=== PATIENT | female | born 1945 | race Caucasian/White ===

== ENCOUNTER 2016-07-08 11:00 | Inpatient (IN) | payer MEDICARE, OTHER ==
--- NOTE | 2016-07-08 11:18 | ER Document Report ---
ED General - General Stated Complaint: WEAKNESS Time seen by provider: 11:17 Mode of Arrival: Ambulatory Information source: Patient Notes: This is a 71-year-old female with a history of back pain, hypertension, migraines who is brought in by EMS was of an altered mental status. The patient lives by herself and a friend came to the house and found the patient with a decreased mental status. Patient was very lethargic for EMS and moving all extremities. EMS reports that when they helped the patient to the bathroom , she did vomit. The patient was given Zofran in the field. TRAVEL OUTSIDE OF THE [place] IN LAST 30 DAYS: No - HPI Onset: Last week Onset/Duration: Gradual Quality of pain: No pain Severity: None Pain Level: Denies Associated symptoms: denies: Chest pain, Fever, Shortness of breath Exacerbated by: Denies Relieved by: Denies Similar symptoms previously: No Recently seen / treated by doctor: No - Related Data Allergies/Adverse Reactions: sumatriptan [From Imitrex] Allergy (Severe, Verified 12/06/14 11:48) ketorolac tromethamine [From Toradol] Allergy (Intermediate, Verified 12/06/14 11:48) itching, hives Sulfa (Sulfonamide Antibiotics) Allergy (Intermediate, Verified 12/06/14 11:48) hives, anaphylaxis prochlorperazine maleate [From Compazine] Allergy (Verified 12/06/14 11:48) Past Medical History - General Information source: Patient - Social History Smoking Status: Never Smoker Cigarette use (# per day): No Chew tobacco use (# tins/day): No Frequency of alcohol use: None Drug Abuse: None Lives with: Alone Family History: Reviewed & Not Pertinent, CVA Patient has suicidal ideation: No Patient has homicidal ideation: No - Past Medical History Cardiac Medical History: Reports: Hx Hypercholesterolemia, Hx Hypertension Denies: Hx Heart Attack Pulmonary Medical History: Reports: Hx Bronchitis, Hx Pneumonia Denies: Hx Asthma Neurological Medical History: Reports: Hx Migraine. Denies: Hx Cerebrovascular Accident, Hx Seizures Endocrine Medical History: Reports: Hx Hypothyroidism GI Medical History: Reports: Hx Gastroesophageal Reflux Disease, Hx Hiatal Hernia - REPAIRED . Denies: Hx Hepatitis, Hx Ulcer Psychiatric Medical History: Reports: Hx Anxiety, Hx Depression - Weekly visits to therapist Infectious Medical History: Denies: Hx Hepatitis Past Surgical History: Reports: Hx Abdominal Surgery - HERNIA REPAIR, Hx Adenoidectomy, Hx Orthopedic Surgery - left wrist, Hx Tonsillectomy, Hx Tubal Ligation. Denies: Hx Mastectomy, Hx Open Heart Surgery, Hx Pacemaker - Immunizations Hx Diphtheria, Pertussis, Tetanus Vaccination: Yes Hx Pneumococcal Vaccination: 06/26/00 Review of Systems - Review of Systems Constitutional: denies: Chills, Fever EENT: No symptoms reported Cardiovascular: No symptoms reported Respiratory: No symptoms reported Gastrointestinal: No symptoms reported Genitourinary: No symptoms reported Female Genitourinary: No symptoms reported Musculoskeletal: No symptoms reported Skin: No symptoms reported Hematologic/Lymphatic: No symptoms reported Neurological/Psychological: See HPI Physical Exam - Vital signs Vitals: Temp Pulse Resp BP Pulse Ox 97.5 F 70 16 148/75 H 97 07/08/16 11:07 07/08/16 11:07 07/08/16 11:07 07/08/16 11:07 07/08/16 11:07 Notes: Physical exam: GENERAL: 71-year-old female lying in stretcher with her eyes closed. She is lethargic. She does move all extremities intermittently. She does seem to understand when I speak to her (she nods in understanding when I tell her oriented to some blood work and give her some IV fluids). She does not appear to be in any pain. There is some vomit on her shirt. HEAD: Atraumatic, normocephalic. EYES: Pupils equal round and reactive to light, extraocular movements intact, sclera anicteric, conjunctiva are normal. ENT: TMs normal, nares patent, oropharynx clear without exudates. Moist mucous membranes. NECK: Normal range of motion, supple without lymphadenopathy LUNGS: Breath sounds clear to auscultation bilaterally and equal. No wheezes rales or rhonchi. HEART: Regular rate and rhythm without murmurs, rubs or gallops. ABDOMEN: Soft, nontender, normoactive bowel sounds. No guarding, no rebound. No masses appreciated. EXTREMITIES: Normal range of motion, no pitting or edema. No clubbing or cyanosis. NEUROLOGICAL: Cranial nerves II through XII grossly intact. Normal speech, normal gait. PSYCH: Normal mood, normal affect. SKIN: Warm, Dry, normal turgor, no rashes or lesions noted. Note: Initially the patient was still lethargic to perform an NIH scale. After several hours, she still is somewhat lethargic, has generalized weakness, no focal weakness and her best language has mild fluency loss. Estimated NIH at this time is 1 Course - Re-evaluation Re-evalutation: 07/08/16 17:21 Patient observed several hours. She has woken up. On reevaluation, she is moving all the extremities and she is oriented 3. She is having difficulty getting words out. The patient's friend is at the bedside and she should she reports that she noticed the patient was having difficulty with her words yesterday as well. Thus given the patient's dysphasia, it appears she may have suffered a stroke. The time of onset looks to be before this morning. The patient is not a candidate for any type of thrombolytics given that the stroke is not within 4.5 hours. - Vital Signs Vital signs: Temp Pulse Resp BP Pulse Ox 97.5 F 89 16 138/81 H 98 07/08/16 11:07 07/08/16 15:00 07/08/16 15:00 07/08/16 15:00 07/08/16 15:00 - Laboratory Result Diagrams: 07/08/16 11:25 07/08/16 11:25 Laboratory results interpreted by me: 07/08/16 07/08/16 07/08/16 11:25 11:25 12:25 MCHC 30.5 L RDW 15.7 H Plt Count 130 L Sodium 150.8 H Chloride 114 H Glucose 120 H Total Protein 6.2 L Albumin 3.4 L Urine Ketones TRACE H - Diagnostic Test Radiology reviewed: Image reviewed, Reports reviewed - CT shows small vessel disease Critical Care Note - Critical Care Note Total time excluding time spent on procedures (mins): 60 Discharge - Discharge Clinical Impression: CVA Condition: Stable Disposition: ADMITTED INPATIENT Admitting Provider: Hospitalist Unit Admitted: Telemetry
[2016-07-08 12:04] LABS: ABSOLUTE EOSINOPHILS # (AUTO) 0.1 10^3/uL (0.0-0.6); ABSOLUTE LYMPHOCYTES (AUTO) 1.5 10^3/uL (0.5-4.7); ABSOLUTE MONOCYTES (AUTO) 0.6 10^3/uL (0.1-1.4); ABSOLUTE NEUT (AUTO) 4.6 10^3/uL (1.7-8.2); BASOPHILS % (AUTO) 0.5 % (0-2); EOSINOPHILS % (AUTO) 2.1 % (0-6); HEMATOCRIT 42.4 % (36.0-47.0); HEMOGLOBIN 12.9 g/dL (12.0-15.5); HGB HCT DIFFERENCE -3.7; LYMPHOCYTES % (AUTO) 21.4 % (13-45); MEAN CORPUSCULAR HEMOGLOBIN 27.5 pg (27.0-33.4); MEAN CORPUSCULAR HGB CONC 30.5 g/dL (32.0-36.0); MEAN CORPUSCULAR VOLUME 90 fl (80-97); RED BLOOD COUNT 4.69 10^6/uL (3.72-5.28); RED CELL DISTRIBUTION WIDTH 15.7 % (11.5-14.0); WHITE BLOOD COUNT 6.8 10^3/uL (4.0-10.5)
[2016-07-08 12:34] LABS: ALANINE AMINOTRANSFERASE 20 U/L (9-52); ALBUMIN 3.4 g/dL (3.5-5.0); ALKALINE PHOSPHATASE 115 U/L (38-126); ANION GAP 15 (5-19); ASPARTATE AMINO TRANSFERASE 24 U/L (14-36); BILIRUBIN,TOTAL 0.6 mg/dL (0.2-1.3); BLOOD UREA NITROGEN 10 mg/dL (7-20); CALCIUM 8.8 mg/dL (8.4-10.2); CARBON DIOXIDE 22 mmol/L (22-30); CHLORIDE 114 mmol/L (98-107); CREATINE KINASE 44 U/L (30-135); CREATININE RESULT 0.75 mg/dL (0.52-1.25); GLUCOSE 120 mg/dL (75-110); POTASSIUM 4.1 mmol/L (3.6-5.0); SODIUM 150.8 mmol/L (137-145); TOTAL PROTEIN 6.2 g/dL (6.3-8.2)
[2016-07-08 12:44] LABS: TROPONIN I < 0.012 ng/mL
--- NOTE | 2016-07-08 15:05 | EKG REPORT ---
SEVERITY:- NORMAL ECG - SINUS RHYTHM : Confirmed by: Eve Cadet 08-Jul-2016 15:05:05
[2016-07-08 16:30] LABS: APPEARANCE,URINE CLEAR; BILIRUBIN,URINE NEGATIVE (NEGATIVE); GLUCOSE, URINE NEGATIVE (NEGATIVE); KETONES,URINE TRACE mg/dL (NEGATIVE); LEUKOCYTE ESTERASE,URINE NEGATIVE (NEGATIVE); NITRITE,URINE NEGATIVE (NEGATIVE); PROTEIN,URINE NEGATIVE (NEGATIVE); URINE SPECIFIC GRAVITY 1.006; UROBILINOGEN,URINE NEGATIVE mg/dL (<2.0)
[2016-07-08] MEDS ORDERED: ASPIRIN 81 MG TABLET, CHEWABLE PO ONE (17:23)
[2016-07-08] MEDS ORDERED: HYDRALAZINE HCL INJ/PF 20 MG/1 ML SDV IV PRN (18:07)
[2016-07-08] MEDS ORDERED: ACETAMINOPHEN 325 MG TABLET PO PRN (18:10)
[2016-07-08] MEDS ORDERED: LABETALOL HCL INJ 20 MG/4 ML DISP.SYRIN IV PRN (18:10)
--- NOTE | 2016-07-08 18:45 | PDOC H&P ---
History of Present Illness Admission Date/PCP: 07/08/16 17:46 PCP: [facility] Patient complains of: Speech difficulty History of Present Illness: ANNAMARIA BRASHER is a 71 year old female with past medical history of hypertension, migraine headaches, hypothyroidism that presents with 1-2 day history of difficulty speaking. Patient states that she wants to say something but a different word comes out. Her friend first noticed this when she called patient last night. The symptoms may have preceded that phone call by approximate 24 hours however. Patient thinks she may have had a history of stroke in the past. Patient incidentally has not been taking any of her medications for proximally 6 months to include antihypertensive medications and thyroid medicine. Medications listed below have not been verified at the time of this documentation. Past Medical History Cardiac Medical History: Reports: Hyperlipidema, Hypertension Denies: Myocardial Infarction Pulmonary Medical History: Reports: Bronchitis, Pneumonia Denies: Asthma Neurological Medical History: Reports: Migraine Denies: Seizures Endocrine Medical History: Reports: Hypothyroidism GI Medical History: Reports: Gastroesophageal Reflux Disease, Hiatal Hernia - REPAIRED Denies: Hepatitis Psychiatric Medical History: Reports: Depression - Weekly visits to therapist Hematology: Denies: Anemia, Sickle Cell Disease Past Surgical History Past Surgical History: Reports: Adenoidectomy, Orthopedic Surgery - left wrist, Tonsillectomy, Tubal Ligation Denies: Amputation, Mastectomy, Pacemaker Social History Information Source: Patient Lives with: Alone Smoking Status: Never Smoker Frequency of Alcohol Use: None Hx Recreational Drug Use: No Hx Prescription Drug Abuse: No - Advance Directive Resuscitation Status: Full Code Family History Family History: CVA - Father and mother Parental Family History Reviewed: Yes Children Family History Reviewed: Yes Sibling(s) Family History Reviewed.: Yes Medication/Allergy Allergies/Adverse Reactions: sumatriptan [From Imitrex] Allergy (Severe, Verified 12/06/14 11:48) ketorolac tromethamine [From Toradol] Allergy (Intermediate, Verified 12/06/14 11:48) itching, hives Sulfa (Sulfonamide Antibiotics) Allergy (Intermediate, Verified 12/06/14 11:48) hives, anaphylaxis prochlorperazine maleate [From Compazine] Allergy (Verified 12/06/14 11:48) Review of Systems Constitutional: ABSENT: chills, fever(s), headache(s), weight gain, weight loss Eyes: ABSENT: visual disturbances Ears: ABSENT: hearing changes Cardiovascular: ABSENT: chest pain, dyspnea on exertion, edema, orthropnea, palpitations Respiratory: ABSENT: cough, hemoptysis Gastrointestinal: ABSENT: abdominal pain, constipation, diarrhea, hematemesis, hematochezia, nausea, vomiting Genitourinary: ABSENT: dysuria, hematuria Musculoskeletal: ABSENT: joint swelling Integumentary: ABSENT: rash, wounds Neurological: PRESENT: abnormal speech, memory loss - Patient does not recall yesterday. ABSENT: abnormal gait, confusion, dizziness, focal weakness, syncope Psychiatric: ABSENT: anxiety, depression, homidical ideation, suicidal ideation Endocrine: ABSENT: cold intolerance, heat intolerance, polydipsia, polyuria Hematologic/Lymphatic: ABSENT: easy bleeding, easy bruising Physical Exam Vital Signs: Temp Pulse Resp BP Pulse Ox 97.5 F 89 16 138/81 H 98 07/08/16 11:07 07/08/16 15:00 07/08/16 15:00 07/08/16 15:00 07/08/16 15:00 PHYSICAL EXAM: GENERAL: Appears well, no acute distress HEENT: Normocephalic, no scleral icterus, conjunctiva clear, EOEM intact, PERRLA , moist mucous membranes NECK: trachea midline, no thyromegally RESPIRATORY: Clear to auscultation, no wheezes/rhonchi CARDIAC: Regular rate and rhythm, no murmur/jaime/rub ABDOMEN: Soft, no distension, no tenderness, no guarding, normal bowel sounds, negative Driver sign RECTAL: deferred : deferred EXTREMITIES: No edema, cyanosis, clubbing MUSCULOSKELETAL: No joint swelling or deformity VASCULAR: normal peripheral pulses NEUROLOGIC: Alert, oriented to person/place/time, expressive aphasia, cranial nerves grossly intact, 5/5 strength in all extremities, tactile sensation intact in all extremities SKIN: No rash, no wounds, no worrisome skin lesions PSYCHIATRIC: Normal mood, normal affect Results Laboratory Results: Labs- All tests 24 hr 07/08/16 07/08/16 07/08/16 11:25 11:25 11:25 WBC 6.8 RBC 4.69 Hgb 12.9 Hct 42.4 MCV 90 MCH 27.5 MCHC 30.5 L RDW 15.7 H Plt Count 130 L Seg Neutrophils % 67.0 Lymphocytes % 21.4 Monocytes % 9.0 Eosinophils % 2.1 Basophils % 0.5 Absolute Neutrophils 4.6 Absolute Lymphocytes 1.5 Absolute Monocytes 0.6 Absolute Eosinophils 0.1 Absolute Basophils 0.0 Sodium 150.8 H Potassium 4.1 Chloride 114 H Carbon Dioxide 22 Anion Gap 15 BUN 10 Creatinine 0.75 Est GFR ( Amer) > 60 Est GFR (Non-Af Amer) > 60 Glucose 120 H Calcium 8.8 Total Bilirubin 0.6 Direct Bilirubin 0.0 AST 24 ALT 20 Alkaline Phosphatase 115 Creatine Kinase 44 CK-MB (CK-2) 0.70 Troponin I < 0.012 Total Protein 6.2 L Albumin 3.4 L Urine Color Urine Appearance Urine pH Ur Specific Chandler Urine Protein Urine Glucose (UA) Urine Ketones Urine Blood Urine Nitrite Urine Bilirubin Urine Urobilinogen Ur Leukocyte Esterase Urine WBC (Auto) Squamous Epi Cells Auto Urine Ascorbic Acid 07/08/16 07/08/16 12:25 17:40 WBC RBC Hgb Hct MCV MCH MCHC RDW Plt Count Seg Neutrophils % Lymphocytes % Monocytes % Eosinophils % Basophils % Absolute Neutrophils Absolute Lymphocytes Absolute Monocytes Absolute Eosinophils Absolute Basophils Sodium Potassium Chloride Carbon Dioxide Anion Gap BUN Creatinine Est GFR ( Amer) Est GFR (Non-Af Amer) Glucose Calcium Total Bilirubin Direct Bilirubin AST ALT Alkaline Phosphatase Creatine Kinase CK-MB (CK-2) Troponin I < 0.012 Total Protein Albumin Urine Color STRAW Urine Appearance CLEAR Urine pH 6.0 Ur Specific Chandler 1.006 Urine Protein NEGATIVE Urine Glucose (UA) NEGATIVE Urine Ketones TRACE H Urine Blood NEGATIVE Urine Nitrite NEGATIVE Urine Bilirubin NEGATIVE Urine Urobilinogen NEGATIVE Ur Leukocyte Esterase NEGATIVE Urine WBC (Auto) 0 Squamous Epi Cells Auto 1 Urine Ascorbic Acid NEGATIVE EKG Comments: Sinus rhythm Impressions: Chest X-Ray 07/08/16 11:18 IMPRESSION: No acute infiltrates. Moderate size retrocardiac hiatal hernia Head CT 07/08/16 11:19 IMPRESSION: MILD CHRONIC CHANGES OF ATROPHY AND MICROVASCULAR ISCHEMIA. NO ACUTE PROCESS. Assessment & Plan - Diagnosis (1) Acute CVA (cerebrovascular accident) Is this a current diagnosis for this admission?: YesPlan: Patient will be admitted under stroke protocol. Aspirin 09/01/2024 milligrams daily. Check lipid panel. Check MRI of the brain. Check carotid Doppler. PT/ OT/ST to evaluate. DVT prophylaxis. (2) Hypothyroid Is this a current diagnosis for this admission?: YesPlan: Patient has now been taking her thyroid medicine for approximate 6 months. Check TSH. If abnormal restart Synthroid 125 g daily (3) Hypertension Is this a current diagnosis for this admission?: YesPlan: Patient has not been taking blood pressure medicine for the past 6 months. I will order when necessary IV hydralazine for now. Restart chronic medications once verified. (4) Hypernatremia Is this a current diagnosis for this admission?: YesPlan: Start half-normal saline. (5) Thrombocytopenia Is this a current diagnosis for this admission?: YesPlan: Avoid aggravating medications such as heparin products. (6) Noncompliance with medication regimen Is this a current diagnosis for this admission?: Yes (7) DVT prophylaxis Is this a current diagnosis for this admission?: YesPlan: Avoid heparin secondary to thrombocytopenia. Start Arixtra. - Time Time Spent: Greater than 70 Minutes - Inpatient Certification Based on my medical assessment, after consideration of the patient's comorbidities, presenting symptoms, or acuity I expect that the services needed warrant INPATIENT care.: Yes I certify that my determination is in accordance with my understanding of Medicare's requirements for reasonable and necessary INPATIENT services [42 CFR 412.3e].: Yes Medical Necessity: Need For Continuous Telemetry Monitoring, Need for Neurological Checks
[2016-07-09 08:44] LABS: ABSOLUTE EOSINOPHILS # (AUTO) 0.2 10^3/uL (0.0-0.6); ABSOLUTE MONOCYTES (AUTO) 0.8 10^3/uL (0.1-1.4); ABSOLUTE NEUT (AUTO) 4.9 10^3/uL (1.7-8.2); BASOPHILS % (AUTO) 0.3 % (0-2); EOSINOPHILS % (AUTO) 2.1 % (0-6); HEMATOCRIT 39.4 % (36.0-47.0); HEMOGLOBIN 12.6 g/dL (12.0-15.5); HGB HCT DIFFERENCE -1.6; LYMPHOCYTES % (AUTO) 25.3 % (13-45); MEAN CORPUSCULAR HEMOGLOBIN 28.6 pg (27.0-33.4); MEAN CORPUSCULAR VOLUME 89 fl (80-97); MONOCYTES % (AUTO) 9.7 % (3-13); RED BLOOD COUNT 4.41 10^6/uL (3.72-5.28); RED CELL DISTRIBUTION WIDTH 14.8 % (11.5-14.0); SEGMENTED NEUTROPHILS % (AUTO) 62.6 % (42-78); WHITE BLOOD COUNT 7.8 10^3/uL (4.0-10.5)
[2016-07-09 08:59] LABS: ANION GAP 13 (5-19); BLOOD UREA NITROGEN 9 mg/dL (7-20); CALCIUM 8.6 mg/dL (8.4-10.2); CARBON DIOXIDE 29 mmol/L (22-30); CHLORIDE 109 mmol/L (98-107); CHOLESTEROL 162.32 mg/dL (0-200); CREATININE RESULT 0.75 mg/dL (0.52-1.25); Direct HDL 47 mg/dL (>40); GLUCOSE 82 mg/dL (75-110); POTASSIUM 3.5 mmol/L (3.6-5.0); TRIGLYCERIDES 109 mg/dL (<150)
[2016-07-09 09:10] LABS: DIRECT LDL 91 mg/dL (<100)
[2016-07-09] MEDS: ASPIRIN 325 MG TABLET, ENT COATED PO SCH (10:56)
[2016-07-09] MEDS: FONDAPARINUX SODIUM INJ 2.5 MG/0.5 ML DISP.SYRIN SUBCUT SCH (10:57)
[2016-07-09] MEDS ORDERED: DIAZEPAM 5 MG TABLET PO PRN (13:36)
[2016-07-09] MEDS ORDERED: BACLOFEN 10 MG TABLET PO PRN (13:36)
[2016-07-09] MEDS ORDERED: TRAMADOL HCL 50 MG TABLET PO PRN (13:36)
[2016-07-09] MEDS ORDERED: POTASSIUM CHLORIDE 10 MEQ TABLET.SA PO ONE (14:30)
[2016-07-09] MEDS ORDERED: ATENOLOL 50 MG TABLET PO ONE (14:30)
[2016-07-09] MEDS ORDERED: LEVOTHYROXINE SODIUM 0.05 MG TABLET PO ONE (14:30)
[2016-07-09 14:41] LABS: URINE BARBITURATES SCREEN NEGATIVE; URINE METHADONE SCREEN NEGATIVE; URINE PHENCYCLIDINE SCREEN NEGATIVE
--- NOTE | 2016-07-09 15:26 | PDOC PROGRESS REPORT ---
Subjective Progress Note for:: 07/09/16 Subjective:: The patient was seen earlier today on rounds. The patient denies any nausea, vomiting, diarrhea, shortness of breath, dizziness, chest pain, heart palpitations, fevers, or chills. Patient does admit to weakness. The patient states that she had significant vomiting and intermittent diarrhea prior to admission. The patient states that she had episode of vomitus while in the emergency department. The patient has remained afebrile. Blood pressures have been in a good range. When prompted the patient voices no other concerns at this time. The patient denies any known neurological deficit. Review of systems: The rest of the review of systems is negative. Physical Exam Vital Signs: Temp Pulse Resp BP Pulse Ox 97.8 F 81 18 129/78 H 97 07/09/16 11:42 07/09/16 12:00 07/09/16 12:00 07/09/16 12:00 07/09/16 12:00 Intake & Output 07/07/16 07/08/16 07/09/16 23:59 23:59 23:59 Intake Total 595 Output Total 700 Balance -105 Weight 81.8 kg General appearance: PRESENT: no acute distress, cooperative, well-developed, well-nourished Head exam: PRESENT: atraumatic, normocephalic Eye exam: PRESENT: conjunctiva pink, EOMI, PERRLA. ABSENT: scleral icterus Ear exam: PRESENT: normal external ear exam Mouth exam: PRESENT: moist, tongue midline Neck exam: ABSENT: carotid bruit, JVD, lymphadenopathy, thyromegaly Respiratory exam: PRESENT: clear to auscultation rox[place], symmetrical, unlabored. ABSENT: rales, rhonchi, tachypnea, wheezes Cardiovascular exam: PRESENT: RRR. ABSENT: diastolic murmur, rubs, systolic murmur Pulses: PRESENT: normal dorsalis pedis pul Vascular exam: PRESENT: normal capillary refill GI/Abdominal exam: PRESENT: normal bowel sounds, soft. ABSENT: distended, guarding, mass, organolmegaly, rebound, tenderness Rectal exam: PRESENT: deferred Extremities exam: PRESENT: full ROM. ABSENT: calf tenderness, clubbing, pedal edema Neurological exam: PRESENT: alert, awake, oriented to person, oriented to place , oriented to time, oriented to situation, CN II-XII grossly intact. ABSENT: motor sensory deficit Psychiatric exam: PRESENT: appropriate affect, normal mood. ABSENT: homicidal ideation, suicidal ideation Skin exam: PRESENT: dry, intact, warm. ABSENT: cyanosis, rash Results Laboratory Results: 07/09/16 07:29 07/09/16 07:29 07/09/16 07/09/16 07/09/16 07:29 07:29 07:29 WBC 7.8 RBC 4.41 Hgb 12.6 Hct 39.4 MCV 89 MCH 28.6 MCHC 32.0 RDW 14.8 H Plt Count 140 L Seg Neutrophils % 62.6 Lymphocytes % 25.3 Monocytes % 9.7 Eosinophils % 2.1 Basophils % 0.3 Absolute Neutrophils 4.9 Absolute Lymphocytes 2.0 Absolute Monocytes 0.8 Absolute Eosinophils 0.2 Absolute Basophils 0.0 Sodium 151.0 H Potassium 3.5 L Chloride 109 H Carbon Dioxide 29 Anion Gap 13 BUN 9 Creatinine 0.75 Est GFR ( Amer) > 60 Est GFR (Non-Af Amer) > 60 Glucose 82 Calcium 8.6 Triglycerides 109 Cholesterol 162.32 LDL Cholesterol Direct 91 VLDL Cholesterol 22.0 HDL Cholesterol 47 TSH 7.50 H Impressions: Chest X-Ray 07/08/16 11:18 IMPRESSION: No acute infiltrates. Moderate size retrocardiac hiatal hernia Head CT 07/08/16 11:19 IMPRESSION: MILD CHRONIC CHANGES OF ATROPHY AND MICROVASCULAR ISCHEMIA. NO ACUTE PROCESS. Carotid Doppler Study 07/08/16 18:08 IMPRESSION: NO HEMODYNAMICALLY SIGNIFICANT STENOSIS. Head MRI 07/08/16 18:08 IMPRESSION: NO ACUTE ISCHEMIA, HEMORRHAGE, OR MASS LESION. NO SIGNIFICANT CHANGE FROM PRIOR STUDY. Assessment & Plan - Diagnosis (1) Cerebral vascular disease Is this a current diagnosis for this admission?: YesPlan: Patient has evidence of micro-cerebrovascular disease on MRI. Will continue the patient's home aspirin therapy and statins. Patient does not have any evidence of acute CVA on MRI imaging. Presenting symptoms have resolved. (2) Dehydration Is this a current diagnosis for this admission?: YesPlan: Apparently the patient had episodes of vomiting and diarrhea prior to admission. This could be the source of the patient's symptoms. Will gently hydrate and repeat chemistry in the a.m. 07/08/16 07/08/16 07/09/16 11:25 12:25 07:29 Sodium 150.8 H 151.0 H Urine Ketones TRACE H (3) Acute encephalopathy Is this a current diagnosis for this admission?: YesPlan: Most likely secondary to the above. This appears to be much improved. (4) Hypertension Qualifiers: Hypertension type: essential hypertension Qualified Code(s): I10 - Essential (primary) hypertension Is this a current diagnosis for this admission?: YesPlan: Will continue home medications. 07/10/16 10:00 Atenolol [Tenormin 50 mg Tablet] 50 mg PO DAILY (5) Hypothyroid Is this a current diagnosis for this admission?: YesPlan: Will obtain T4 07/09/16 07:29 TSH 7.50 H 07/10/16 10:00 Levothyroxine Sodium [Synthroid 0.05 mg Tablet] 0.05 mg PO DAILY (6) Hypokalemia Is this a current diagnosis for this admission?: YesPlan: Will supplement. 07/09/16 07:29 Potassium 3.5 L (7) Thrombocytopenia Is this a current diagnosis for this admission?: YesPlan: Relatively mild will follow. 07/08/16 07/09/16 11:25 07:29 Plt Count 130 L 140 L (8) DVT prophylaxis Is this a current diagnosis for this admission?: Yes (9) Noncompliance with medication regimen Is this a current diagnosis for this admission?: Yes - Time Time Spent with patient: on this visit including assessment, plan, physical examination, and patient education is 25 minutes.t Time Spent with patient: 25-34 minutes Medications reviewed and adjusted accordingly: Yes Anticipated discharge: Home Within: within 24 hours Disposition: The patient is a full code. Pending patient's symptomatology and diagnostic findings will reevaluate in the a.m.
[2016-07-09] MEDS: 1/2 NORMAL SALINE 1,000 ML IV PRN (17:55)
[2016-07-09] MEDS ORDERED: AMITRIPTYLINE HCL 10 MG TABLET PO SCH (22:00)
[2016-07-10] MEDS: 1/2 NORMAL SALINE 1,000 ML IV PRN (07:12)
[2016-07-10] MEDS: FONDAPARINUX SODIUM INJ 2.5 MG/0.5 ML DISP.SYRIN SUBCUT SCH (08:07)
[2016-07-10] MEDS ORDERED: ATENOLOL 50 MG TABLET PO SCH (10:00)
[2016-07-10] MEDS ORDERED: LEVOTHYROXINE SODIUM 0.05 MG TABLET PO SCH (10:00)
[2016-07-10] MEDS ORDERED: LANSOPRAZOLE 15 MG TAB.RAP.DR PO SCH (10:00)
[2016-07-10] MEDS ORDERED: LANSOPRAZOLE 15 MG PO SCH (10:00)
[2016-07-10] MEDS: ASPIRIN 325 MG TABLET, ENT COATED PO SCH (10:12)
[2016-07-10 10:41] LABS: ANION GAP 11 (5-19); BLOOD UREA NITROGEN 7 mg/dL (7-20); CALCIUM 8.6 mg/dL (8.4-10.2); CARBON DIOXIDE 24 mmol/L (22-30); CHLORIDE 109 mmol/L (98-107); CREATININE RESULT 0.76 mg/dL (0.52-1.25); GLUCOSE 97 mg/dL (75-110); POTASSIUM 3.7 mmol/L (3.6-5.0); SODIUM 143.6 mmol/L (137-145)
[2016-07-10 13:00] VITALS: BP 138/81
--- NOTE | 2016-07-11 16:30 | PDOC DISCHARGE SUMMARY ---
General - Admit/Disc Date/PCP Admission Date/Primary Care Provider: 07/08/16 18:10 Letha Solo Discharge Date: 07/11/16 - Discharge Diagnosis (1) Dehydration Is this a current diagnosis for this admission?: Yes (2) Acute encephalopathy Is this a current diagnosis for this admission?: Yes (3) Cerebral vascular disease Is this a current diagnosis for this admission?: Yes (4) Hypertension Is this a current diagnosis for this admission?: Yes (5) Hypothyroid Is this a current diagnosis for this admission?: Yes (6) Hypokalemia Is this a current diagnosis for this admission?: Yes (7) Thrombocytopenia Is this a current diagnosis for this admission?: Yes (8) DVT prophylaxis Is this a current diagnosis for this admission?: Yes (9) Cystitis Is this a current diagnosis for this admission?: Yes (10) Noncompliance with medication regimen Is this a current diagnosis for this admission?: Yes - Additional Information Resuscitation Status: Full Code Discharge Diet: As Tolerated, Regular Discharge Activity: Activity As Tolerated Home Medications: Amitriptyline HCl [Elavil 10 mg Tablet] 10 mg PO QHS 07/08/16 Atenolol [Tenormin] 50 mg PO DAILY 07/08/16 Baclofen [Baclofen 10 mg Tablet] 20 mg PO QIDP PRN 07/08/16 Diazepam 5 mg PO BIDP PRN 07/08/16 Lansoprazole 15 mg PO DAILY 07/08/16 Levothyroxine Sodium [Synthroid] 50 mcg PO DAILY 07/08/16 Tramadol HCl 50 mg PO Q6HP PRN 07/08/16 Zolpidem Tartrate [Ambien 5 mg Tablet] 15 mg PO QHS 07/09/16 Cephalexin Monohydrate [Keflex 500 mg Capsule] 500 mg PO QID #20 capsule History of Present Illness Patient complains of: Confusion History of Present Illness: ANNAMARIA BRASHER is a 71 year old female with past medical history of hypertension, migraine headaches, hypothyroidism that presents with 1-2 day history of difficulty speaking. Patient states that she wants to say something but a different word comes out. Her friend first noticed this when she called patient last night. The symptoms may have preceded that phone call by approximate 24 hours however. Patient thinks she may have had a history of stroke in the past. Patient incidentally has not been taking any of her medications for proximally 6 months to include antihypertensive medications and thyroid medicine. Upon arrival to the emergency department patient was found to be hypernatremic with a sodium of 151. Patient also admits to 2-3 day history of nausea and vomiting. The patient was referred to the hospitalists for observation and management. Hospital Course Hospital Course: The patient was observed continuous telemetry unit. The patient had no episodes while on the panel monitor. No replication of symptoms. The patient underwent head CT and MRI of the brain which did not reveal any acute findings. The patient had a carotid Doppler with no significant stenosis. The patient was seen and evaluated by physical therapies, recommendations have been made and the patient is ready for discharge. The patient was hydrated and the patient's sodium did improve. And no further episodes of vomiting nor diarrhea. The patient has returned back to her baseline with no issues with expression. According to the patient she has recurrent UTIs for which she has pyridium at home. The patient asked for a course of Keflex due to impending infection. The patient's UA was explained to the patient and her lack of white count and no fevers that there was nothing to suggest that she was having a urinary tract infection. However the patient was insistent on treatment given her history. Physical Exam Vital Signs: Temp Pulse Resp BP Pulse Ox 98.0 F 73 18 138/81 H 95 07/10/16 12:55 07/10/16 12:55 07/10/16 12:55 07/10/16 12:55 07/10/16 12:55 Intake & Output 07/09/16 07/10/16 07/11/16 23:59 23:59 23:59 Intake Total 1682 1288 Output Total 1500 2600 Balance 182 -1312 Weight 81.8 kg 81.511 kg General appearance: PRESENT: no acute distress, cooperative, well-developed, well-nourished Head exam: PRESENT: atraumatic, normocephalic Eye exam: PRESENT: conjunctiva pink, EOMI, PERRLA. ABSENT: scleral icterus Ear exam: PRESENT: normal external ear exam Mouth exam: PRESENT: moist, tongue midline Neck exam: ABSENT: carotid bruit, JVD, lymphadenopathy, thyromegaly Respiratory exam: PRESENT: clear to auscultation [place], symmetrical, unlabored. ABSENT: rales, rhonchi, tachypnea, wheezes Cardiovascular exam: PRESENT: RRR. ABSENT: diastolic murmur, rubs, systolic murmur Pulses: PRESENT: normal dorsalis pedis pul Vascular exam: PRESENT: normal capillary refill GI/Abdominal exam: PRESENT: normal bowel sounds, soft. ABSENT: distended, guarding, mass, organolmegaly, rebound, tenderness Rectal exam: PRESENT: deferred Extremities exam: PRESENT: full ROM. ABSENT: calf tenderness, clubbing, pedal edema Neurological exam: PRESENT: alert, awake, oriented to person, oriented to place , oriented to time, oriented to situation, CN II-XII grossly intact. ABSENT: motor sensory deficit Psychiatric exam: PRESENT: appropriate affect, normal mood. ABSENT: homicidal ideation, suicidal ideation Skin exam: PRESENT: dry, intact, warm. ABSENT: cyanosis, rash Results Laboratory Results: 07/09/16 07:29 07/10/16 09:47 Impressions: Chest X-Ray 07/08/16 11:18 IMPRESSION: No acute infiltrates. Moderate size retrocardiac hiatal hernia Head CT 07/08/16 11:19 IMPRESSION: MILD CHRONIC CHANGES OF ATROPHY AND MICROVASCULAR ISCHEMIA. NO ACUTE PROCESS. Carotid Doppler Study 07/08/16 18:08 IMPRESSION: NO HEMODYNAMICALLY SIGNIFICANT STENOSIS. Head MRI 07/08/16 18:08 IMPRESSION: NO ACUTE ISCHEMIA, HEMORRHAGE, OR MASS LESION. NO SIGNIFICANT CHANGE FROM PRIOR STUDY. Qualifiers PATEINT BEING DISCHARGED WITH ANY OF THE FOLLOWING DIAGNOSIS?: No Plan Time Spent: Less than 30 Minutes
== END 2016-07-10 14:03 | disposition home or self-care (01) | DRG 640 ==
LOC: ER 11:00 → EH 17:46 → OBSVTOIN 18:10 → 3S 07-09 01:40
DX: E87.0 Hyperosmolality and hypernatremia (principal); G93.40 Encephalopathy, unspecified; R47.01 Aphasia; E86.0 Dehydration; I10 Essential (primary) hypertension; D69.6 Thrombocytopenia, unspecified; E03.9 Hypothyroidism, unspecified; K21.9 Gastro-esophageal reflux disease without esophagitis; E87.6 Hypokalemia; N30.90 Cystitis, unspecified without hematuria; G43.909 Migraine, unspecified, not intractable, without status migrainosus; Z91.19 Patient's noncompliance with other medical treatment and regimen; Z87.440 Personal history of urinary (tract) infections; Z98.51 Tubal ligation status; Z88.2 Allergy status to sulfonamides; Z82.3 Family history of stroke; F41.9 Anxiety disorder, unspecified; F32.9 Major depressive disorder, single episode, unspecified; I67.9 Cerebrovascular disease, unspecified
CPT/HCPCS: 36415; 70450; 70551; 71010; 80048; 80053; 80061; 80307; 81001; 82550; 82553; 84439; 84443; 84484; 85025; 93005; 93010; 93880; 99291; G8978-GP; G8979-GP; G8980-GP; J1652; J3490

== ENCOUNTER 2016-09-19 04:59 | Emergency (ER) | payer MEDICARE, OTHER ==
--- NOTE | 2016-09-19 07:57 | ER Document Report ---
HPI - HPI Patient complains to provider of: left trapezius muscle spasm Onset: Yesterday Onset/Duration: Gradual Quality of pain: Throbbing Pain Level: 5 Context: 71-year-old female with a history of crushed shoulder injury with resultant left trapezius intermittent pain was unrelieved with Valium 2 mg that she has at home. She sees a pain management doctor in 2 weeks. Ultram helps. No chest pain or shortness of breath. She did house work yesterday which seemed to set the pain off. Associated Symptoms: None Exacerbated by: Movement Similar symptoms previously: Yes - ROS ROS below otherwise negative: Yes Systems Reviewed and Negative: Yes All other systems reviewed and negative - REPRODUCTIVE Reproductive: DENIES: : - DERM Skin Color: Normal, [place] Past Medical History - General Information source: Patient - Social History Smoking Status: Never Smoker Lives with: Family Family History: CVA - Father and mother Patient has suicidal ideation: No Patient has homicidal ideation: No - Past Medical History Cardiac Medical History: Reports: Hx Hypercholesterolemia, Hx Hypertension Pulmonary Medical History: Reports: Hx Bronchitis, Hx Pneumonia Neurological Medical History: Reports: Hx Migraine Endocrine Medical History: Reports: Hx Hypothyroidism Renal/ Medical History: Denies: Hx Peritoneal Dialysis GI Medical History: Reports: Hx Gastroesophageal Reflux Disease, Hx Hiatal Hernia - REPAIRED Psychiatric Medical History: Reports: Hx Anxiety, Hx Depression - Weekly visits to therapist Past Surgical History: Reports: Hx Abdominal Surgery - HERNIA REPAIR, Hx Adenoidectomy, Hx Orthopedic Surgery - left wrist, Hx Tonsillectomy, Hx Tubal Ligation - Immunizations Hx Diphtheria, Pertussis, Tetanus Vaccination: Yes Hx Pneumococcal Vaccination: 06/26/15 Vertical Provider Document - CONSTITUTIONAL Agree With Documented VS: Yes Exam Limitations: No Limitations - INFECTION CONTROL TRAVEL OUTSIDE OF THE [place] IN LAST 30 DAYS: No - HEENT HEENT: Atraumatic, Normocephalic. negative: Conjuctival Injection - NECK Neck: Supple. negative: Lymphadenopathy-Left, Lymphadenopathy-Right Notes: Tender left trapezius top of shoulder - RESPIRATORY Respiratory: Breath Sounds Normal, No Respiratory Distress O2 Sat by Pulse Oximetry: 98 - CARDIOVASCULAR Cardiovascular: Regular Rate, Regular Rhythm - MUSCULOSKELETAL/EXTREMETIES Musculoskeletal/Extremeties: MAEW, FROM - NEURO Level of Consciousness: Awake, Alert - DERM Integumentary: Warm, Dry Course - Vital Signs Vital signs: Temp Pulse Resp BP Pulse Ox 97.6 F 78 18 148/93 H 98 09/19/16 05:11 09/19/16 05:11 09/19/16 05:11 09/19/16 05:11 09/19/16 05:11 Discharge - Discharge Clinical Impression: left trapezius muscle pain and spasm Condition: Good Disposition: HOME, SELF-CARE Instructions: Muscle Strain ([facility]), Myalagia (Muscle Pain) ([facility]) Additional Instructions: warm compress massage see your doctor for follow up to er if worse Please complete the patient satisfaction survey if you get one, and return it.. If you do not receive a survey, then you can go to the [facility] website, [email or web address] and place your comments about your very good care. Thank you very much. It was a pleasure being your medical provider today. Prescriptions: Tramadol HCl [Ultram 50 mg Tablet] 50 mg PO ASDIR PRN #20 tablet PRN Reason: Referrals: LIBERTAD ALSTON PA-C [Primary Care Provider] - Follow up as needed
[2016-09-19 09:07] VITALS: BP 145/90
== END 2016-09-19 09:07 | disposition home or self-care (01) ==
LOC: ER 04:59
DX: M62.838 Other muscle spasm (principal); E78.00 Pure hypercholesterolemia, unspecified; I10 Essential (primary) hypertension; E03.9 Hypothyroidism, unspecified; K21.9 Gastro-esophageal reflux disease without esophagitis; Z98.51 Tubal ligation status
CPT/HCPCS: 99283

== ENCOUNTER 2016-09-24 18:00 | Emergency (ER) | payer MEDICARE, OTHER ==
[2016-09-24 18:09] VITALS: BP 134/99
[2016-09-24] MEDS ORDERED: OXYCODONE-ACETAMINOPHEN 5-325 MG TABLET PO ONE (18:10)
--- NOTE | 2016-09-24 18:13 | ER Document Report ---
ED General - General Chief Complaint: Wrist Injury Stated Complaint: WRIST INJURY Mode of Arrival: Ambulatory Information source: Patient Notes: 71-year-old female presents with complaints of right wrist pain after fall. Patient denies any other injuries notes it hurts to move her digits. Patient has multiple other fractures in the past TRAVEL OUTSIDE OF THE [place] IN LAST 30 DAYS: No - HPI Onset: Just prior to arrival Onset/Duration: Sudden Quality of pain: Sharp Severity: Moderate Pain Level: 2 Associated symptoms: Other Exacerbated by: Movement Relieved by: Denies Similar symptoms previously: No - Related Data Allergies/Adverse Reactions: sumatriptan [From Imitrex] Allergy (Severe, Verified 09/24/16 18:05) ketorolac tromethamine [From Toradol] Allergy (Intermediate, Verified 09/24/16 18:05) itching, hives Sulfa (Sulfonamide Antibiotics) Allergy (Intermediate, Verified 09/24/16 18:05) hives, anaphylaxis prochlorperazine maleate [From Compazine] Allergy (Verified 09/24/16 18:05) Past Medical History - Social History Smoking Status: Never Smoker Cigarette use (# per day): No Chew tobacco use (# tins/day): No Smoking Education Provided: No Family History: CVA - Father and mother Patient has suicidal ideation: No Patient has homicidal ideation: No - Past Medical History Cardiac Medical History: Reports: Hx Hypercholesterolemia, Hx Hypertension Denies: Hx Heart Attack Pulmonary Medical History: Reports: Hx Bronchitis, Hx Pneumonia Denies: Hx Asthma Neurological Medical History: Reports: Hx Migraine. Denies: Hx Cerebrovascular Accident, Hx Seizures Endocrine Medical History: Reports: Hx Hypothyroidism Renal/ Medical History: Denies: Hx Peritoneal Dialysis GI Medical History: Reports: Hx Gastroesophageal Reflux Disease, Hx Hiatal Hernia - REPAIRED . Denies: Hx Hepatitis, Hx Ulcer Psychiatric Medical History: Reports: Hx Anxiety, Hx Depression - Weekly visits to therapist Infectious Medical History: Denies: Hx Hepatitis Past Surgical History: Reports: Hx Abdominal Surgery - HERNIA REPAIR, Hx Adenoidectomy, Hx Orthopedic Surgery - left wrist, Hx Tonsillectomy, Hx Tubal Ligation. Denies: Hx Mastectomy, Hx Open Heart Surgery, Hx Pacemaker - Immunizations Hx Diphtheria, Pertussis, Tetanus Vaccination: Yes Hx Pneumococcal Vaccination: 06/26/15 Review of Systems - Review of Systems Notes: REVIEW OF SYSTEMS: CONSTITUTIONAL : Denies fever, chills, or sweats. Denies recent illness. EENT: Denies eye, ear, throat, or mouth pain or symptoms. Denies nasal or sinus congestion or discharge. Denies throat, tongue, or mouth swelling or difficulty swallowing. CARDIOVASCULAR: Denies chest pain. Denies palpitations or racing or irregular heart beat. Denies ankle edema. RESPIRATORY: Denies cough, cold, or chest congestion. Denies shortness of breath, difficulty breathing, or wheezing. GASTROINTESTINAL: Denies abdominal pain or distention. Denies nausea, vomiting , or diarrhea. Denies blood in vomitus, stools, or per rectum. Denies black, tarry stools. Denies constipation. GENITOURINARY: Denies difficulty urinating, painful urination, burning, frequency, blood in urine, or discharge. FEMALE GENITOURINARY: Denies vaginal bleeding, heavy or abnormal periods, irregular periods. Denies vaginal discharge or odor. MUSCULOSKELETAL: Admits to right wrist pain SKIN: Denies rash, lesions or sores. HEMATOLOGIC : Denies easy bruising or bleeding. LYMPHATIC: Denies swollen, enlarged glands. NEUROLOGICAL: Denies confusion or altered mental status. Denies passing out or loss of consciousness. Denies dizziness or lightheadedness. Denies headache. Denies weakness or paralysis or loss of use of either side. Denies problems with gait or speech. Denies sensory loss, numbness, or tingling. Denies seizures. PSYCHIATRIC: Denies anxiety or stress. Denies depression, suicidal ideation, or homicidal ideation. ALL OTHER SYSTEMS REVIEWED AND NEGATIVE. Dictation was performed using [employer] voice recognition software PHYSICAL EXAMINATION: GENERAL: Well-appearing, well-nourished and in no acute distress. HEAD: Atraumatic, normocephalic. EYES: Pupils equal round and reactive to light, extraocular movements intact, conjunctiva are normal. ENT: Nares patent, oropharynx clear without exudates. Moist mucous membranes. NECK: Normal range of motion, supple without lymphadenopathy LUNGS: Breath sounds clear to auscultation bilaterally and equal. No wheezes rales or rhonchi. HEART: Regular rate and rhythm without murmurs ABDOMEN: Soft, nontender, nondistended abdomen. No guarding, no rebound. No masses appreciated. Female : deferred Musculoskeletal: Obvious deformity of the right wrist pulses intact NEUROLOGICAL: Cranial nerves grossly intact. Normal speech, normal gait. Normal sensory, motor exams PSYCH: Normal mood, normal affect. SKIN: Warm, Dry, normal turgor, no rashes or lesions noted. Physical Exam - Vital signs Vitals: Temp Pulse Resp BP Pulse Ox 97.9 F 64 18 134/99 H 98 09/24/16 18:06 09/24/16 18:06 09/24/16 18:06 09/24/16 18:06 09/24/16 18:06 Course - Re-evaluation Re-evalutation: 09/24/16 18:13 X-ray pending patient given pain medication 09/24/16 19:56 hematoma block performed of the wrist with reduction of fracture and splint Follow-up with orthopedics and close return precautions After performing a Medical Screening Examination, I estimate there is LOW risk for INTRACRANIAL HEMORRHAGE, UNSTABLE SPINE FRACTURE, CENTRAL CORD SYNDROME, CAUDA EQUINA, THORACIC AORTIC DISSECTION, PNEUMOTHORAX, PERFORATED BOWEL, RUPTURED ABDOMINAL AORTIC ANEURYSM, ACUTE TENDON RUPTURE, COMPARTMENT SYNDROME, or OPEN FRACTURE, thus I consider the discharge disposition reasonable. Also, there is no evidence or peritonitis, sepsis, or toxicity. The patient and I have discussed the diagnosis and risks, and we agree with discharging home to follow-up with their primary doctor with the understanding that symptoms and presentations can change. We also discussed returning to the Emergency Department immediately if new or worsening symptoms occur. We have discussed the symptoms which are most concerning (e.g., bloody stool, fever, changing or worsening pain, vomiting) that necessitate immediate return. - Vital Signs Vital signs: Temp Pulse Resp BP Pulse Ox 97.9 F 64 18 134/99 H 98 09/24/16 18:06 09/24/16 18:06 09/24/16 18:06 09/24/16 18:06 09/24/16 18:06 Procedures - Immobilization Right Wrist Time completed: 19:20 Pre-Proc Neuro Vasc Exam: Normal Immobilizer type: Short Arm Posterior Performed by: PCT Post-Proc Neuro Vasc Exam: Normal Alignment checked and good: Yes - Joint Reduction/Fracture Care Right Wrist Time completed: 19:10 Consent obtained: Yes Conscious sedation: No Pre-procedure NV exam: Yes Fracture: Closed Post-procedure NV exam: Yes Post-reduction x-ray: Joint reduced Reduction attempts: 1 Complications: No - Additional Procedures hematoma block Time performed: 19:00 - using 10 cc of 2% lido with complete relief no ocmplications Discharge - Discharge Clinical Impression: Radial head fracture, closed Qualifiers: Encounter type: initial encounter Fracture alignment: displaced Laterality: right Qualified Code(s): S52.121A - Displaced fracture of head of right radius, initial encounter for closed fracture Fracture of ulnar styloid Qualifiers: Encounter type: initial encounter Fracture type: closed Fracture alignment: displaced Laterality: right Qualified Code(s): S52.611A - Displaced fracture of right ulna styloid process, initial encounter for closed fracture Condition: Stable Disposition: HOME, SELF-CARE Instructions: Splint Precautions ([facility]), Temporary Splint ([facility]) Prescriptions: Oxycodone HCl/Acetaminophen [Percocet 5-325 mg Tablet] 1 - 2 tab PO Q4H PRN #25 tablet PRN Reason: Referrals: FRANSISCO HUANG DO [ACTIVE STAFF] - Follow up tomorrow
[2016-09-24] MEDS ORDERED: LIDOCAINE 2% INJ (20 MG/ML) 20 ML MDV INJ ONE (18:53)
== END 2016-09-24 20:08 | disposition home or self-care (01) ==
LOC: ER 18:00
PROC: 0PSHXZZ Reposition Right Radius, External Approach (ICD-10-PCS; principal; 2016-09-24)
DX: S52.121A Displaced fracture of head of right radius, initial encounter for closed fracture (principal); S52.611A Displaced fracture of right ulna styloid process, initial encounter for closed fracture; M25.531 Pain in right wrist; W19.XXXA Unspecified fall, initial encounter; I10 Essential (primary) hypertension; Z88.6 Allergy status to analgesic agent; Z88.2 Allergy status to sulfonamides; Z88.8 Allergy status to other drugs, medicaments and biological substances
CPT/HCPCS: 99283; 73100; 73110; 25605; J3490; A9270

== ENCOUNTER 2018-05-18 07:06 | Emergency (ER) | payer MEDICARE, OTHER ==
[2018-05-18] MEDS ORDERED: DIAZEPAM INJ 10 MG/2 ML DISP.SYRIN IV ONE (07:35)
[2018-05-18] MEDS ORDERED: MORPHINE SULFATE 10 MG/ML INJ IV ONE (07:35)
[2018-05-18] MEDS ORDERED: NORMAL SALINE 1000 ML 1,000 ML IV PRN (07:36)
--- NOTE | 2018-05-18 07:40 | ER Document Report ---
ED General - General Chief Complaint: Back Pain Stated Complaint: FALL/BACK PAIN Time Seen by Provider: 05/18/18 07:26 TRAVEL OUTSIDE OF THE [place] IN LAST 30 DAYS: No - HPI Notes: Patient is a 73-year-old female with a history of hypothyroidism, currently not on any medicines, occasional anxiety, and chronic back pain who presents to the ED complaining of lower back pain after taking a fall 4 days ago. Patient states that she tripped over her cat and fell forward. Patient did not hit her head or have any loss of consciousness. Patient states that her pain is primarily to her middle and right side of her lower back. Patient states that she did have a kyphoplasty performed last year at L5/S1. Patient states that she has been ambulatory without any difficulties otherwise. Truncal movements do make her pain worse. The pain does not radiate. She has been eating and drinking without any difficulties. She is urinating normally and having normal bowel movements. Patient states that aside from her back pain she feels well. Denies any headache, fever, head injury, neck pain, changes in vision/speech/ mentation/hearing, URI, sore throat, chest pain, palpitations, syncope, cough, shortness of breath, wheeze, dyspnea, abdominal pain, nausea/vomiting/diarrhea, urinary retention, dysuria, hematuria, loss of control of bowel or bladder, numbness/tingling, saddle anesthesia, muscle paralysis/weakness, or rash. - Related Data Allergies/Adverse Reactions: sumatriptan [From Imitrex] Allergy (Severe, Verified 09/24/16 18:05) ketorolac tromethamine [From Toradol] Allergy (Intermediate, Verified 09/24/16 18:05) itching, hives Sulfa (Sulfonamide Antibiotics) Allergy (Intermediate, Verified 09/24/16 18:05) hives, anaphylaxis prochlorperazine maleate [From Compazine] Allergy (Verified 09/24/16 18:05) Past Medical History - Social History Smoking Status: Unknown if Ever Smoked Family History: CVA - Father and mother - Past Medical History Cardiac Medical History: Reports: Hx Hypercholesterolemia, Hx Hypertension Denies: Hx Heart Attack Pulmonary Medical History: Reports: Hx Bronchitis, Hx Pneumonia Denies: Hx Asthma Neurological Medical History: Reports: Hx Migraine. Denies: Hx Cerebrovascular Accident, Hx Seizures Endocrine Medical History: Reports: Hx Hypothyroidism Renal/ Medical History: Denies: Hx Peritoneal Dialysis GI Medical History: Reports: Hx Gastroesophageal Reflux Disease, Hx Hiatal Hernia - REPAIRED . Denies: Hx Hepatitis, Hx Ulcer Psychiatric Medical History: Reports: Hx Anxiety, Hx Depression - Weekly visits to therapist Infectious Medical History: Denies: Hx Hepatitis Past Surgical History: Reports: Hx Abdominal Surgery - HERNIA REPAIR, Hx Adenoidectomy, Hx Orthopedic Surgery - left wrist, Hx Tonsillectomy, Hx Tubal Ligation. Denies: Hx Mastectomy, Hx Open Heart Surgery, Hx Pacemaker - Immunizations Hx Diphtheria, Pertussis, Tetanus Vaccination: Yes Hx Pneumococcal Vaccination: 06/26/15 Review of Systems - Review of Systems -: Yes All other systems reviewed and negative Physical Exam - Vital signs Vitals: Resp Pulse Ox 26 H 96 05/18/18 07:38 05/18/18 07:38 - Notes Notes: PHYSICAL EXAMINATION: GENERAL: Well-appearing, well-nourished and in no acute distress. A&Ox4. Answers questions appropriately. Vitals: RR 16. LUNGS: Breath sounds clear to auscultation bilaterally and equal. No wheezes rales or rhonchi. HEART: Regular rate and rhythm without murmurs, rubs, gallops. ABDOMEN: Soft, nontender, nondistended abdomen. No guarding, no rebound. No masses appreciated. Normal bowel sounds present. No CVA tenderness bilaterally. No pulsatile mass Musculoskeletal: LE's b/l: FROM to passive/active. Strength 5+/5. No deficits noted. No bony tenderness of extremities. Back: LROM to passive/active due to pain. Strength 5+/5. No vertebral point tenderness, stepoffs, or deformities. No other bony tenderness, erythema, swelling, or ecchymosis. SLR negative b/l. + tenderness to the midline L spine approx L2-3 and Rt L-paraspinal mm. Mild spasming. No SI jt tenderness. No foot drop Extremities: No cyanosis, clubbing, or edema b/l. Peripheral pulses 2+. Capillary refill less than 2 seconds. NEUROLOGICAL: Normal speech, normal gait. Normal sensory, motor exams. Reflexes 2+ b/l. PSYCH: Normal mood, normal affect. SKIN: Warm, Dry, normal turgor, no rashes or lesions noted. Course - Re-evaluation Re-evalutation: 05/18/18 09:42 Patient is an afebrile, well-hydrated, 73-year-old female who presents to the ED with low back pain and elevated TSH. Vitals are acceptable. PE is otherwise unremarkable for any focal neurological deficits. X-ray was unremarkable for any acute pathology. CBC, CMP, UA unremarkable. See TSH. I did review with Dr. webster, and we will hold off on any synthroid at this time. She is to f/u-establish with her PCM for management. She has no significant tachycardia, tachypnea, or hypoxia. She is nontoxic-appearing and is tolerating p.o. without difficulties. Pt is ambulatory w/o any problems. There are no signs of infection. No other red flag symptoms noted. No other labs or imaging warranted at this time based on H&P. Low suspicion for any myxedema coma, meningitis, fracture, expanding/ruptured AAA, cauda equina syndrome, epidural mass lesion/abscess, herniated disc causing severe spinal stenosis, or other systemic infection at this time. Patient is aware that this condition can change from initial presentation and that she needs monitor symptoms closely for any acute changes. I will send her home with a prescription for baclofen and lidoderm patches. Conservative measures otherwise for symptoms. Recheck with your PCM in 3-5 days. Consider consult with orthopedic/physical therapy. Return to the ED with any worsening/ concerning symptoms otherwise as reviewed discharge. Patient is in agreement. - Vital Signs Vital signs: Temp Pulse Resp BP Pulse Ox 21 H 151/74 H 99 05/18/18 09:01 05/18/18 09:00 05/18/18 09:01 - Laboratory Result Diagrams: 05/18/18 08:01 05/18/18 08:01 Laboratory results interpreted by me: 05/18/18 05/18/18 05/18/18 08:01 08:01 08:01 WBC 11.2 H RDW 14.7 H Glucose 131 H Alkaline Phosphatase 127 H Total Protein 6.1 L Albumin 3.3 L TSH 8.50 H Discharge - Discharge Clinical Impression: Elevated TSH Low back pain Qualifiers: Chronicity: acute Back pain laterality: right Sciatica presence: without sciatica Qualified Code(s): M54.5 - Low back pain Condition: Stable Disposition: HOME, SELF-CARE Instructions: Low Back Pain ([facility]), Stretching Exercises for the Back ([facility]), Muscle Relaxers ([facility]) Additional Instructions: Your thyroid lab was abnormal and you may need to be on medicine for it. Please f/u with your PCM and/of establish with another clinic if needed for further evaluation and management. Rest, Ice, Compression, Elevation Tylenol/ibuprofen as needed Light stretches daily Strength exercises as able Moist heat and massage may help F/u with your PCP in 3-5 days for a recheck Consider consult(s) with Orthopedics/physical therapy for ongoing/worsening symptoms Return to the ED with any worsening symptoms and/or development of fever, headache, chest pain, palpitations, syncope, shortness of breath, trouble breathing, abdominal pain, n/v/d, blood in stool/urine, loss of control of bowel /bladder, urinary retention, muscle weakness/paralysis, saddle anesthesia, numbness/tingling, or other worsening symptoms that are concerning to you. Prescriptions: Baclofen [Baclofen 10 mg Tablet] 5 - 10 mg PO BID PRN #10 tablet PRN Reason: Lidocaine [Lidoderm 5% (700 mg) Transdermal Patch] 1 patch TP DAILY #10 adh..patch Forms: Elevated Blood Pressure Referrals: JONA GONZALEZ PA [Primary Care Provider] - Follow up as needed [facility] [Provider Group] - Follow up as needed
[2018-05-18 08:11] LABS: ABSOLUTE EOSINOPHILS # (AUTO) 0.2 10^3/uL (0.0-0.6); ABSOLUTE LYMPHOCYTES (AUTO) 3.2 10^3/uL (0.5-4.7); ABSOLUTE MONOCYTES (AUTO) 1.3 10^3/uL (0.1-1.4); ABSOLUTE NEUT (AUTO) 6.5 10^3/uL (1.7-8.2); BASOPHILS % (AUTO) 0.4 % (0-2); EOSINOPHILS % (AUTO) 1.9 % (0-6); HEMATOCRIT 39.4 % (36.0-47.0); HEMOGLOBIN 12.9 g/dL (12.0-15.5); LYMPHOCYTES % (AUTO) 28.7 % (13-45); MEAN CORPUSCULAR HGB CONC 32.8 g/dL (32.0-36.0); MEAN CORPUSCULAR VOLUME 92 fl (80-97); MONOCYTES % (AUTO) 11.3 % (3-13); PLATELET COUNT 185 10^3/uL (150-450); RED CELL DISTRIBUTION WIDTH 14.7 % (11.5-14.0); SEGMENTED NEUTROPHILS % (AUTO) 57.7 % (42-78); TOTAL CELLS COUNTED % (AUTO) 100 %; WHITE BLOOD COUNT 11.2 10^3/uL (4.0-10.5)
[2018-05-18 08:33] LABS: ALANINE AMINOTRANSFERASE 16 U/L (9-52); ALBUMIN 3.3 g/dL (3.5-5.0); ALKALINE PHOSPHATASE 127 U/L (38-126); ANION GAP 12 (5-19); ASPARTATE AMINO TRANSFERASE 17 U/L (14-36); BILIRUBIN,DIRECT 0.2 mg/dL (0.0-0.4); BILIRUBIN,TOTAL 0.5 mg/dL (0.2-1.3); BLOOD UREA NITROGEN 11 mg/dL (7-20); CALCIUM 8.8 mg/dL (8.4-10.2); CARBON DIOXIDE 24 mmol/L (22-30); CHLORIDE 107 mmol/L (98-107); GLUCOSE 131 mg/dL (75-110); POTASSIUM 3.7 mmol/L (3.6-5.0); SODIUM 143.4 mmol/L (137-145); TOTAL PROTEIN 6.1 g/dL (6.3-8.2)
--- NOTE | 2018-05-18 08:36 | RADIOLOGY REPORT (SQ) ---
EXAM DESCRIPTION: L SPINE WHOLE COMPLETED DATE/TIME: 05/18/2018 8:25 am REASON FOR STUDY: low back pain s/p fall COMPARISON: 07/06/2014. NUMBER OF VIEWS: Five views including obliques. TECHNIQUE: AP, lateral, oblique, and sacral radiographic images acquired of the lumbar spine. LIMITATIONS: None. FINDINGS: MINERALIZATION: Normal. SEGMENTATION: Normal. No transitional anatomy. ALIGNMENT: Old compression fracture of L1 with kyphoplasty cement. Otherwise intact. VERTEBRAE: Maintained height. No fracture or worrisome bone lesion. DISCS: Preserved height. No significant osteophytes or end plate irregularity. POSTERIOR ELEMENTS: Pedicles and facets are intact. No pars defect or posterior arch defects. HARDWARE: None in the spine. PARASPINAL SOFT TISSUES: Normal. PELVIS: Intact as visualized. No fractures or worrisome bone lesions. SI joints intact. OTHER: No other significant finding. IMPRESSION: OLD COMPRESSION FRACTURE OF L1 WITH KYPHOPLASTY. NO APPARENT ACUTE FINDINGS. TECHNICAL DOCUMENTATION: JOB ID: [id number] [employer]- All Rights Reserved Reading location - IP/workstation name: [email or web address]
[2018-05-18 09:01] LABS: APPEARANCE,URINE SLIGHTLY-CLOUDY; BILIRUBIN,URINE NEGATIVE (NEGATIVE); COLOR,URINE STRAW; GLUCOSE, URINE NEGATIVE (NEGATIVE); KETONES,URINE NEGATIVE (NEGATIVE); LEUKOCYTE ESTERASE,URINE NEGATIVE (NEGATIVE); NITRITE,URINE NEGATIVE (NEGATIVE); PROTEIN,URINE NEGATIVE (NEGATIVE); URINE SPECIFIC GRAVITY 1.002; UROBILINOGEN,URINE NEGATIVE mg/dL (<2.0)
[2018-05-18 10:11] VITALS: BP 148/73
--- NOTE | 2018-05-18 19:17 | EKG REPORT ---
SEVERITY:- OTHERWISE NORMAL ECG - SINUS TACHYCARDIA : Confirmed by: Bessie De Los Santos MD 18-May-2018 19:17:17
== END 2018-05-18 10:32 | disposition home or self-care (01) ==
LOC: ER 07:06
DX: M54.5 Low back pain (principal); R94.6 Abnormal results of thyroid function studies; M54.9 Dorsalgia, unspecified; G89.29 Other chronic pain; F41.9 Anxiety disorder, unspecified; W01.0XXA Fall on same level from slipping, tripping and stumbling without subsequent striking against object, initial encounter; I10 Essential (primary) hypertension
CPT/HCPCS: 93005; 99284; 96361; 96374; 96375; 36415; 84443; 85025; 80053; 81001; 72110; 93010; J3360; J2270; J7030

== ENCOUNTER → 2018-10-11 | Outpatient (CLI) | payer MEDICARE, OTHER ==
--- NOTE | 2018-10-11 14:12 | WOMENS IMAGING REPORT ---
EXAM DESCRIPTION: BONE DENSITY HIP/SPINE COMPLETED DATE/TIME: 10/11/2018 2:02 pm REASON FOR STUDY: M81.0 AGE-RELATED OSTEOPOROSIS WITHOUT CURRENT PATHOLOGICAL FRACTURE M81.0 AGE-RE LATED OSTEOPOROSIS W/O CURRENT PATHOLOGICAL FRAC COMPARISON: None. TECHNIQUE: Dual-Energy X-ray Absorptiometry (DEXA) of the AP Spine and Hip. LIMITATIONS: None. FINDINGS: LUMBAR SPINE: The bone mineral density (BMD) measured from L1-L4 in the AP projection correlates with a T-score of -1.5, which is osteopenic as defined by the World Health Organization. HIP: The bone mineral density (BMD) measured in the left femoral neck at the hip correlates with a T-score of -2.6, which is osteoporotic as defined by the World Health Organization. IMPRESSION: 1. LUMBAR SPINE: Osteopenic 2. HIP: Osteoporotic COMMENT: The World Health Organization defines low BMD as follows: T-score: Normal: Greater than -1.0 Osteopenia: Between -1.0 and -2.5 Osteoporosis: Less than -2.5 without fractures Established osteoporosis: Less than -2.5 with fractures In general, you may wish to consider: Diagnosis Treatment Follow-up DEXA Normal BMD Prevention 2-3 years Osteopenia Prevention/Therapy 1-2 years Osteoporosis Therapy Yearly TECHNICAL DOCUMENTATION: JOB ID: [id number] [employer]- All Rights Reserved Reading location - IP/workstation name: [email or web address]
--- NOTE | 2018-10-11 16:43 | WOMENS IMAGING REPORT ---
EXAM DESCRIPTION: 3D SCREENING MAMMO BILAT COMPLETED DATE/TIME: 10/11/2018 2:02 pm REASON FOR STUDY: Z12.31 ENCOUNTER FOR SCREENING MAMMOGRAM FOR MALIGNANT NEOPLASM OF BREAST M81.0 A GE-RELATED OSTEOPOROSIS W/O CURRENT PATHOLOGICAL FRAC COMPARISON: 2013, 2014 TECHNIQUE: Standard craniocaudal and mediolateral oblique views of each breast recorded using digita l acquisition and breast tomosynthesis. LIMITATIONS: None. FINDINGS: Findings present which are benign by mammographic criteria. No suspicious masses, calcific ations or architectural distortion. Pertinent benign findings: Stable benign bilateral breast parenchymal calcifications Read with the assistance of CAD. .[facility] - R2 Cenova Version 1.3 .[facility] - R2 Cenova Version 2.1 .[facility] - R2 Cenova Version 2.4 .[facility] [place] - R2 Cenova Version 2.4 .[facility] - R2 Viol[employer] Version 9.2 Benign mammographic findings may include one or more of the following: Smooth masses, popcorn/rim/coa rse calcifications, asymmetries, post-procedure changes, and lesions with long-standing stability. IMPRESSION: BENIGN MAMMOGRAPHIC FINDINGS. BIRADS 2 BREAST DENSITY: c. The breasts are heterogeneously dense, which may obscure small masses. BIRAD: 2 BENIGN FINDING(S) RECOMMENDATION: ROUTINE SCREENING COMMENT: The patient has been notified of the results by letter per SA requirements. Additional no tification policies are in place for contacting patient with suspicious or incomplete findings. Quality ID #[id number]: The [employer] recommends an annual screening mammogram for women aged 40 years or over. This facility utilizes a reminder system to ensure that all patients receive reminder letters, and/or direct phone calls for appointments. This includes reminders for routine scr eening mammograms, diagnostic mammograms, or other Breast Imaging Interventions when appropriate. Th is patient will be placed in the appropriate reminder system. The [employer] (ACR) has developed recommendations for screening MRI of the breast s in certain patient populations, to be used in conjunction with mammography. Breast MRI surveillanc e may be appropriate for women with more than 20% lifetime risk of developing breast cancer as deter mined by genetic testing, significant family history of the disease, or history of mantle radiation f or Hodgkins Disease. ACR Practice Guidelines 2008. DBT Technology DBT is a type of tomographic mammography. With conventional mammography, overlapping breast tissue ma y make lesions difficult to detect, even with good compression. DBT uses an x-ray tube that rotates a round the breast, taking images at different angles. These images are then combined to create thin sl ices of the breast that the radiologist can view as a 3D reconstruction. The [employer] unit can perform full-field digital mammograms (2D imaging); or DBT (3D imaging); or both, in a combination mode that quickly performs both the mammogram and the tomosynthesis scan while the breast is still compressed. PQRS 6045F: Fluoroscopic imaging is not utilized for breast tomosynthesis. TECHNICAL DOCUMENTATION: FINDING NUMBER: (1) ASSESSMENT: (1) JOB ID: [id number] [employer]- All Rights Reserved Reading location - IP/workstation name: [email or web address]
== END ==
LOC: WI 13:16
PROVIDERS: ATTEND Internal Medicine
DX: Z12.31 Encounter for screening mammogram for malignant neoplasm of breast (principal); M81.0 Age-related osteoporosis without current pathological fracture
CPT/HCPCS: 77063; 77067; 77080

== ENCOUNTER → 2018-10-15 | Outpatient (CLI) | payer MEDICARE, OTHER ==
--- NOTE | 2018-10-15 16:00 | RADIOLOGY REPORT (SQ) ---
EXAM DESCRIPTION: CT HEAD WITHOUT COMPLETED DATE/TIME: 10/15/2018 3:49 pm REASON FOR STUDY: S09.90XA UNSPECIFIED INJURY OF HEAD, INITIAL ENCOUNTER S09.90XA UNSPECIFIED INJUR Y OF HEAD, INITIAL ENCOUNTER COMPARISON: MRI brain 07/08/2016 CT brain 07/08/2016, 09/03/2014, 01/07/2013 TECHNIQUE: Axial images acquired through the brain without intravenous contrast. Images reviewed wi th bone, brain and subdural windows. Additional sagittal and coronal reconstructions were generated. Images stored on PACS. All CT scanners at this facility use dose modulation, iterative reconstruction, and/or weight based d osing when appropriate to reduce radiation dose to as low as reasonably achievable (ALARA). [facility]: Dose Right [facility]: CareDose [facility]: Dose Right [facility]: Teradose 4D [facility]: Smart Anki RADIATION DOSE: CT Rad equipment meets quality standard of care and radiation dose reduction techniq ues were employed. CTDIvol: 48.6 mGy. DLP: 905 mGy-cm. mGy. LIMITATIONS: None. FINDINGS: VENTRICLES: Normal size and contour. CEREBRUM: No CT evidence of acute ischemic change, acute intracranial hemorrhage mass effect or midli ne shift. There is moderate bifrontal and biparietal small vessel chronic ischemic change, stable. CEREBELLUM: No masses. No hemorrhage. No alteration of density. No evidence for acute infarction. EXTRAAXIAL SPACES: No fluid collections. No masses. ORBITS AND GLOBE: No intra- or extraconal masses. Post bilateral cataract surgery CALVARIUM: No fracture. PARANASAL SINUSES: No fluid or mucosal thickening. SOFT TISSUES: Right parieto-occipital scalp hematoma without underlying skull fracture or acute intra cranial hemorrhage OTHER: No other significant finding. IMPRESSION: Right parieto-occipital scalp hematoma without underlying skull fracture or acute intrac ranial changes EVIDENCE OF ACUTE STROKE: NO. COMMENT: Quality ID # [id number]: Final reports with documentation of one or more dose reduction techniques (e.g., Automated exposure control, adjustment of the mA and/or kV according to patient size, use of iterative reconstruction technique) TECHNICAL DOCUMENTATION: JOB ID: [id number] [employer]- All Rights Reserved Reading location - IP/workstation name: [email or web address]-
== END ==
LOC: RAD 15:53
PROVIDERS: ATTEND Physician Assistant
DX: S00.03XA Contusion of scalp, initial encounter (principal); X58.XXXA Exposure to other specified factors, initial encounter
CPT/HCPCS: 70450

== ENCOUNTER 2019-01-29 05:03 | Emergency (ER) | payer MEDICARE, OTHER ==
[2019-01-29 07:45] VITALS: BP 141/78
--- NOTE | 2019-01-29 08:33 | ER Document Report ---
ED Fall - General Chief Complaint: Fall Injury Stated Complaint: LEFT LEG/RIGHT ARM PAIN/FALL Time Seen by Provider: 01/29/19 08:32 TRAVEL OUTSIDE OF THE [place] IN LAST 30 DAYS: No - HPI Notes: 73-year-old female to the emergency department with complaints of left lower leg pain as well as right elbow pain since she sustained a fall last week. She states that she was walking into her dentist office when she tripped over a tree root. She states that she fell on on an outstretched arm on the right and onto her left knee. She states that she saw her primary care and she was sent for a wrist x-ray as well as the knee x-ray. She states that both of these were negative. However, her left lower leg hurts the most as well as her right elbowboth of which were not imaged. She states that her right elbow hurts the most when she is supinating and pronating. She states that the time of her injury the medics came and when the medic extended her arm on the right side she felt and heard a pop at the elbow. She states that her knee was severely bruised and she has had bruising down the left lower leg since the accident. But her most tender part of the leg is midshaft on the lower leg anteriorly. She denies hitting her head or any loss of consciousness. She states that she recently had a bone scan and was told that she was osteoporotic. She denies any other complaints. States her primary has her on Ultram and Flexeril and the pain is not well controlled. Patient is not on blood thinners. - Related data Allergies/Adverse Reactions: sumatriptan [From Imitrex] Allergy (Severe, Verified 09/24/16 18:05) ketorolac tromethamine [From Toradol] Allergy (Intermediate, Verified 09/24/16 18:05) itching, hives Sulfa (Sulfonamide Antibiotics) Allergy (Intermediate, Verified 09/24/16 18:05) hives, anaphylaxis prochlorperazine maleate [From Compazine] Allergy (Verified 09/24/16 18:05) Past Medical History - General Information source: Patient - Social History Smoking Status: Never Smoker Frequency of alcohol use: None Drug Abuse: None Family History: Reviewed & Not Pertinent, CVA - Father and mother Patient has suicidal ideation: No Patient has homicidal ideation: No - Past Medical History Cardiac Medical History: Reports: Hx Hypercholesterolemia, Hx Hypertension Denies: Hx Heart Attack Pulmonary Medical History: Reports: Hx Bronchitis, Hx Pneumonia Denies: Hx Asthma Neurological Medical History: Reports: Hx Migraine. Denies: Hx Cerebrovascular Accident, Hx Seizures Endocrine Medical History: Reports: Hx Hypothyroidism Renal/ Medical History: Denies: Hx Peritoneal Dialysis GI Medical History: Reports: Hx Gastroesophageal Reflux Disease, Hx Hiatal Hernia - REPAIRED . Denies: Hx Hepatitis, Hx Ulcer Psychiatric Medical History: Reports: Hx Anxiety, Hx Depression - Weekly visits to therapist Infectious Medical History: Denies: Hx Hepatitis Past Surgical History: Reports: Hx Abdominal Surgery - HERNIA REPAIR, Hx Adenoidectomy, Hx Orthopedic Surgery - left wrist, Hx Tonsillectomy, Hx Tubal Ligation. Denies: Hx Mastectomy, Hx Open Heart Surgery, Hx Pacemaker - Immunizations Hx Diphtheria, Pertussis, Tetanus Vaccination: Yes Hx Pneumococcal Vaccination: 06/26/15 Review of Systems - Review of Systems Constitutional: No symptoms reported. denies: Chills, Fever, Weakness EENT: denies: No symptoms reported Cardiovascular: denies: Chest pain, Palpitations, Orthopnea, Dyspnea, Syncope, Dizziness, Lightheaded Respiratory: denies: Cough, Short of breath Gastrointestinal: denies: Abdominal pain, Diarrhea, Nausea, Vomiting, Constipation Genitourinary: No symptoms reported Musculoskeletal: See HPI, Joint pain, Muscle pain, Muscle stiffness Skin: No symptoms reported Hematologic/Lymphatic: No symptoms reported Neurological/Psychological: No symptoms reported -: Yes All other systems reviewed and negative Physical Exam - Vital signs Vitals: Temp Pulse Resp BP Pulse Ox 98.5 F 130 H 18 123/71 97 01/29/19 05:13 01/29/19 05:13 01/29/19 05:13 01/29/19 05:13 01/29/19 05:13 Selected Entries 01/29/19 07:43 Pulse Rate [ 102 H Radial] Blood Pressure 141/78 H [Left Upper Arm ] Blood Pressure 99 Mean [Left Upper Arm] O2 Sat by Pulse 99 Oximetry Interpretation: Normal - General General appearance: Appears well, Alert In distress: None - HEENT Head: Normocephalic, Atraumatic Eyes: Normal Pupils: PERRL - Respiratory Respiratory status: No respiratory distress Chest status: Nontender Breath sounds: Normal Chest palpation: Normal - Cardiovascular Rhythm: Regular Heart sounds: Normal auscultation Murmur: No - Abdominal Inspection: Normal Distension: No distension Bowel sounds: Normal Tenderness: Nontender Organomegaly: No organomegaly - Back Back: Normal, Nontender. No: Vertebra tenderness - Extremities Elbow: Tender - To the right elbow there is tenderness to palpation to the radial aspect the right elbow. There is no ecchymosis or edema noted. Patient does have increased pain with supination and pronation of the forearm. Her range of motion is still intact. She has no tenderness to palpation to the right hand or fingers. She has no snuffbox tenderness bilaterally. She has no tenderness to palpation over the right wrist. Wrist: Normal, Nontender Hand: Normal, Nontender Knee: Tender - There is tenderness to palpation over the left knee with noted yellowing ecchymosis and edema. The ecchymosis extends down to three fourths of the anterior left pineda. She has point tenderness to the anterior left pineda just below the tibial plateau. There is no evidence for vomiting. She has some mild flexion of the left knee due to the edema and ecchymosis. Her extension of the left knee is fully intact. Compartments are soft. She has good bilateral DP pulses. Cap refill in all toes is less than 2 seconds., Ecchymosis Ankle: Normal, Nontender Foot: Normal, Nontender - Neurological Neuro grossly intact: Yes Cognition: Normal Orientation: AAOx4 [place] Coma Scale Eye Opening: Spontaneous [place] Coma Scale Verbal: Oriented [place] Coma Scale Motor: Obeys Commands [place] Coma Scale Total: 15 Speech: Normal Motor strength normal: LUE, RUE, LLE, RLE Sensory: Normal - Psychological Associated symptoms: Normal affect, Normal mood - Skin Skin Temperature: Warm Skin Moisture: Dry Skin Color: Normal Course - Re-evaluation Re-evalutation: 01/29/19 Impression: Fall, elbow strain on the right side, left lower leg contusion. There is no evidence for compartment syndrome. Patient has not had good pain control with tramadol and Flexeril as needed. We will plan to send home Zanaflex and Weldon. We will sling the right elbow and have her follow-up with orthopedist. Have encouraged RICE. Also encouraged to return if any worsening symptoms such as redness to the leg or elbow, fever, sitting pain not controlled by medicines. Patient agrees with the plan 01/29/19 sling check. Patient was neurovascularly intact prior to sling and continues to be after sling placement. Elbow X-Ray 01/29/19 09:19 IMPRESSION: NEGATIVE STUDY OF THE RIGHT ELBOW. NO RADIOGRAPHIC EVIDENCE OF ACUTE INJURY. Tibia/Fibula X-Ray 01/29/19 09:19 IMPRESSION: No acute findings 01/29/19 noted initialy HR of 130 upon arrival. Discharge HR was 102 -- likely initial tachycardia to pain and walking in for triage initially. - Vital Signs Vital signs: Temp Pulse Resp BP Pulse Ox 98.1 F 102 H 18 141/78 H 99 01/29/19 07:43 01/29/19 07:43 01/29/19 05:13 01/29/19 07:43 01/29/19 07:43 - Diagnostic Test Radiology reviewed: Image reviewed, Reports reviewed Discharge - Discharge Clinical Impression: Fall Qualifiers: Encounter type: initial encounter Qualified Code(s): W19.XXXA - Unspecified fall, initial encounter Strain of elbow, right Qualifiers: Encounter type: initial encounter Qualified Code(s): S46.911A - Strain of unspecified muscle, fascia and tendon at shoulder and upper arm level, right arm, initial encounter Contusion of lower leg, left Qualifiers: Encounter type: initial encounter Qualified Code(s): S80.12XA - Contusion of left lower leg, initial encounter Contusion of knee, left Qualifiers: Encounter type: initial encounter Qualified Code(s): S80.02XA - Contusion of left knee, initial encounter Condition: Stable Disposition: HOME, SELF-CARE Instructions: Muscle Strain ([facility]), Contusion ([facility]) Additional Instructions: FOLLOW UP WITH ORTHOPEDISTS WITHOUT FAIL. CONTINUE TO ICE THE EXTREMITIES THREE TIMES A DAY FOR 20 MINUTES. RETURN IF WORSENING PAIN, FEVERS, CHILLS, REDNESS THAT IS STREAKING UP AN EXTREMITY, OR ANY OTHER CONCERNS. FOLLOW UP WITH PRIMARY CARE. STOP ULTRAM AND FLEXERIL. TAKE MEDICINES PRESCRIBED HERE TODAY. Prescriptions: Hydrocodone/Acetaminophen [[place] 5-325 mg Tablet] 1 tab PO Q6H #10 tablet Tizanidine HCl 2 mg PO TID #21 tablet Referrals: FRANSISCO HUANG DO [ACTIVE STAFF] - Follow up in 1 week (for orthopedic follow up)
--- NOTE | 2019-01-29 10:34 | RADIOLOGY REPORT (SQ) ---
EXAM DESCRIPTION: ELBOW RIGHT AP/LAT COMPLETED DATE/TIME: 01/29/2019 10:22 am REASON FOR STUDY: fall, elbow pain COMPARISON: None. NUMBER OF VIEWS: Four views. TECHNIQUE: AP, lateral, and both oblique radiographic images acquired of the right elbow. LIMITATIONS: None. FINDINGS: MINERALIZATION: Normal. BONES: No acute fracture or dislocation. No worrisome bone lesions. JOINT: No effusion. SOFT TISSUES: No soft tissue swelling. No foreign body. OTHER: No other significant finding. IMPRESSION: NEGATIVE STUDY OF THE RIGHT ELBOW. NO RADIOGRAPHIC EVIDENCE OF ACUTE INJURY. COMMENT: If there is continued pain at the elbow, repeat films in 10 to 14 days would be useful to e xclude a nondisplaced radial head fracture TECHNICAL DOCUMENTATION: JOB ID: [id number] [employer]- All Rights Reserved Reading location - IP/workstation name: [email or web address]
--- NOTE | 2019-01-29 10:38 | RADIOLOGY REPORT (SQ) ---
EXAM DESCRIPTION: TIB FIB BILAT 2 VIEWS COMPLETED DATE/TIME: 01/29/2019 10:22 am REASON FOR STUDY: left tib, fall COMPARISON: None. NUMBER OF VIEWS: Two views. TECHNIQUE: Two radiographic images acquired of the right and left tibia and fibula to include the kn ee and ankle in at least one projection. LIMITATIONS: None. FINDINGS: MINERALIZATION: Normal. BONES: No acute fracture or dislocation. No worrisome bone lesions. There is an old healed right fi bular head fracture of the proximal tibia fibular joint. SOFT TISSUES: No obvious swelling or foreign body. OTHER: No other significant finding. IMPRESSION: No acute findings TECHNICAL DOCUMENTATION: JOB ID: [id number] [employer]- All Rights Reserved Reading location - IP/workstation name: [email or web address]
== END 2019-01-29 11:14 | disposition home or self-care (01) ==
LOC: ER 05:03
DX: S46.911A Strain of unspecified muscle, fascia and tendon at shoulder and upper arm level, right arm, initial encounter (principal); S80.02XA Contusion of left knee, initial encounter; S80.12XA Contusion of left lower leg, initial encounter; M79.661 Pain in right lower leg; M25.521 Pain in right elbow; M79.10 Myalgia, unspecified site; W01.0XXA Fall on same level from slipping, tripping and stumbling without subsequent striking against object, initial encounter; Y93.89 Activity, other specified; Y92.531 Health care provider office as the place of occurrence of the external cause; I10 Essential (primary) hypertension; Z88.6 Allergy status to analgesic agent; Z88.8 Allergy status to other drugs, medicaments and biological substances; Z88.2 Allergy status to sulfonamides
CPT/HCPCS: 99283

== ENCOUNTER 2019-02-11 05:17 | Emergency (ER) | payer MEDICARE, OTHER ==
[2019-02-11 05:40] VITALS: BP 151/99
--- NOTE | 2019-02-11 06:32 | ER Document Report ---
ED Fall - General Chief Complaint: Fall Stated Complaint: FALL/LEG AND FOOT PAIN Time Seen by Provider: 02/11/19 06:06 Primary Care Provider: HELGA ARSHAD MD [Primary Care Provider] - Follow up as needed Mode of Arrival: Ambulatory Information source: Patient, [facility] Records Notes: This 73-year-old female patient comes emergency room complaining of pain and swelling to her left foot. She has a past history of CVA with some difficulty with memory. She does have lymphedema. She has a history of tachycardia, her wellness consultant thinks it may be SVT. She had been on Eliquis for a brief time in case it was A. fib, but the Eliquis was stopped 3 weeks ago. There is a plan to do a 30-day monitor at some point. She was seen here on 01/29/2019 when she tripped on a tree root going to see her dentist. She landed on her left knee and had considerable swelling. She was seen in the emergency room, had x-rays and no fractures were seen. On 02/09/2019 about noon, she tripped over her cat in her kitchen, and landed on the same knee. When she did that fall, she hyperextended her toes. She reports she has increased tightness and discomfort to the left knee region, she has new bruising over the left dorsal foot and toes. TRAVEL OUTSIDE OF THE [place] IN LAST 30 DAYS: No - Related data Allergies/Adverse Reactions: sumatriptan [From Imitrex] Allergy (Severe, Verified 09/24/16 18:05) ketorolac tromethamine [From Toradol] Allergy (Intermediate, Verified 09/24/16 18:05) itching, hives Sulfa (Sulfonamide Antibiotics) Allergy (Intermediate, Verified 09/24/16 18:05) hives, anaphylaxis prochlorperazine maleate [From Compazine] Allergy (Verified 09/24/16 18:05) Past Medical History - General Information source: Patient, [facility] Records - Social History Smoking Status: Never Smoker Cigarette use (# per day): No Chew tobacco use (# tins/day): No Smoking Education Provided: No Frequency of alcohol use: None Drug Abuse: None Occupation: Retired Lives with: Alone Family History: Reviewed & Not Pertinent, CVA - Father and mother - Past Medical History Cardiac Medical History: Reports: Hx Hypercholesterolemia, Hx Hypertension, Other - Lymphedema Pulmonary Medical History: Reports: Hx Bronchitis, Hx Pneumonia Neurological Medical History: Reports: Hx Cerebrovascular Accident - 07/08/2016, Hx Migraine Endocrine Medical History: Reports: Hx Hypothyroidism GI Medical History: Reports: Hx Gastroesophageal Reflux Disease, Hx Hiatal Hernia - REPAIRED Psychiatric Medical History: Reports: Hx Anxiety, Hx Depression Past Surgical History: Reports: Hx Abdominal Surgery - HERNIA REPAIR, Hx Adenoidectomy, Hx Orthopedic Surgery - left wrist, Hx Tonsillectomy, Hx Tubal Ligation - Immunizations Hx Diphtheria, Pertussis, Tetanus Vaccination: Yes Hx Pneumococcal Vaccination: 06/26/15 Review of Systems - Review of Systems Constitutional: No symptoms reported EENT: No symptoms reported Cardiovascular: No symptoms reported Respiratory: No symptoms reported Genitourinary: No symptoms reported Female Genitourinary: Post menopausal Musculoskeletal: See HPI Skin: No symptoms reported Hematologic/Lymphatic: No symptoms reported Neurological/Psychological: Other - Memory problems Physical Exam - Vital signs Vitals: Temp Pulse Resp BP Pulse Ox 97.5 F 144 H 20 151/99 H 99 02/11/19 05:38 02/11/19 05:38 02/11/19 05:38 02/11/19 05:38 02/11/19 05:38 Interpretation: Hypertensive, Tachycardic - General General appearance: Appears well, Alert In distress: None - HEENT Head: Normocephalic, Atraumatic Eyes: Normal Pupils: PERRL - Respiratory Respiratory status: No respiratory distress Breath sounds: Normal - Cardiovascular Rhythm: Regular, Tachycardia Heart sounds: Normal auscultation Murmur: No - Abdominal Inspection: Normal - Back Back: Normal - Extremities General upper extremity: Normal inspection General lower extremity: Other - Bilateral lymphedema to the lower extremities. The left lower extremity shows grossly swollen around the anterior knee and anterior leg. There is old yellowing bruising around the knee and the proximal anterior leg. There is more recent bruising over the left dorsal lateral foot and base of the toes. The ankle is swollen but not tender to palpate. - Neurological Neuro grossly intact: Yes - Psychological Associated symptoms: Normal affect, Normal mood - Skin Skin Temperature: Warm Skin Moisture: Dry Skin Color: Normal Course - Re-evaluation Re-evalutation: 02/11/19 08:36 Reviewed the findings with patient. She has been keeping her feet elevated, however due to her lymphedema the swelling is really not improved since the initial injury. She does have a compression apparatus at home that is an adjustable so she is able to attach it and put on very gentle pressure. Advised her that would probably be a good idea to start with very light pressure to try to improve the resolution of her swelling, as it is going to be very difficult to get the swelling to go down even with elevation due to her lymphedema. She states that her doctor gave her prescription for tramadol, but it does not help at all so we will provide her with some narcotic pain medication for the next few days. - Vital Signs Vital signs: Temp Pulse Resp BP Pulse Ox 97.5 F 100 18 151/99 H 98 02/11/19 05:38 02/11/19 07:24 02/11/19 07:19 02/11/19 05:38 02/11/19 08:00 - Laboratory Result Diagrams: 02/11/19 06:45 02/11/19 06:45 Laboratory results interpreted by me: 02/11/19 02/11/19 06:45 06:45 RDW 16.3 H Glucose 114 H Direct Bilirubin 0.5 H Creatine Kinase 27 L - Diagnostic Test Radiology reviewed: Image reviewed, Reports reviewed - X-rays of the left tib- fib, and foot do not show fractures. - EKG Interpretation by Me EKG shows normal: Sinus rhythm, [place], Intervals, QRS Complexes, ST-T Waves Rate: Normal - 95 Rhythm: NSR When compared to previous EKG there are: Previous EKG unavailable Discharge - Discharge Clinical Impression: Fall on same level from tripping as cause of accidental injury Contusion of left knee and lower leg Qualifiers: Encounter type: initial encounter Qualified Code(s): S80.02XA - Contusion of left knee, initial encounter Sprain of toe Qualifiers: Encounter type: initial encounter Qualified Code(s): S93.509A - Unspecified sprain of unspecified toe(s), initial encounter Condition: Stable Disposition: HOME, SELF-CARE Additional Instructions: Take the pain medicine as prescribed if needed. Elevate your feet all the time. Try using your compression apparatus on very gentle compression to see if it will help reduce the swelling in your left lower extremity. Use a walker or cane to help getting around when you have to get up and walk. Follow-up with your primary care provider this week for recheck. RETURN TO THE EMERGENCY ROOM IF ANY NEW OR WORSENING SYMPTOMS. Prescriptions: Hydrocodone/Acetaminophen [[place] 5-325 mg Tablet] 1 tab PO ASDIR PRN #12 tablet PRN Reason: Referrals: HELGA ARSHAD MD [Primary Care Provider] - Follow up as needed
[2019-02-11 07:00] LABS: INTERNATIONAL RATION (INR) 0.94; PROTHROMBIN TIME 12.6 SEC (11.4-15.4)
[2019-02-11 07:08] LABS: ALBUMIN 3.9 g/dL (3.5-5.0); ALKALINE PHOSPHATASE 118 U/L (38-126); ANION GAP 9 (5-19); ASPARTATE AMINO TRANSFERASE 24 U/L (14-36); BILIRUBIN,DIRECT 0.5 mg/dL (0.0-0.4); BILIRUBIN,TOTAL 0.9 mg/dL (0.2-1.3); BLOOD UREA NITROGEN 11 mg/dL (7-20); CALCIUM 9.2 mg/dL (8.4-10.2); CARBON DIOXIDE 26 mmol/L (22-30); CHLORIDE 107 mmol/L (98-107); CREATINE KINASE 27 U/L (30-135); GLUCOSE 114 mg/dL (75-110); POTASSIUM 4.7 mmol/L (3.6-5.0); TOTAL PROTEIN 6.7 g/dL (6.3-8.2)
[2019-02-11 07:11] LABS: ABSOLUTE EOSINOPHILS # (AUTO) 0.1 10^3/uL (0.0-0.6); ABSOLUTE LYMPHOCYTES (AUTO) 1.6 10^3/uL (0.5-4.7); ABSOLUTE NEUT (AUTO) 5.2 10^3/uL (1.7-8.2); BASOPHILS % (AUTO) 0.2 % (0-2); EOSINOPHILS % (AUTO) 1.3 % (0-6); HEMATOCRIT 38.4 % (36.0-47.0); HEMOGLOBIN 12.4 g/dL (12.0-15.5); LYMPHOCYTES % (AUTO) 19.6 % (13-45); MEAN CORPUSCULAR HEMOGLOBIN 30.1 pg (27.0-33.4); MEAN CORPUSCULAR HGB CONC 32.4 g/dL (32.0-36.0); MEAN CORPUSCULAR VOLUME 93 fl (80-97); PLATELET COUNT 168 10^3/uL (150-450); RED BLOOD COUNT 4.14 10^6/uL (3.72-5.28); RED CELL DISTRIBUTION WIDTH 16.3 % (11.5-14.0); SEGMENTED NEUTROPHILS % (AUTO) 65.9 % (42-78); TOTAL CELLS COUNTED % (AUTO) 100 %; WHITE BLOOD COUNT 7.9 10^3/uL (4.0-10.5)
--- NOTE | 2019-02-11 07:25 | RADIOLOGY REPORT (SQ) ---
EXAM DESCRIPTION: XR FOOT 3 OR MORE VIEWS COMPLETED DATE/TME: 02/11/2019 06:29 CLINICAL HISTORY: 73 years, Female, Fall, hyperextended toes, foot pain and bruising COMPARISON: None. NUMBER OF VIEWS: Three TECHNIQUE: Three views of the left foot LIMITATIONS: None. FINDINGS: The bones are demineralized. There is no acute fracture or dislocation. There is no large soft tissue swelling. No radiopaque foreign body. A small plantar calcaneal spur is noted. IMPRESSION: No acute fracture or dislocation. copyright 2010 [employer]- All Rights Reserved
--- NOTE | 2019-02-11 07:27 | RADIOLOGY REPORT (SQ) ---
EXAM: Two view(s) of the bilateral tibia-fibula. INDICATION: Pain. COMPARISON: None. FINDINGS: No acute fracture or dislocation. No radiopaque foreign body.. Mild soft tissue swelling along the proximal left tibia and medial aspect of the left ankle. There is mild soft tissue swelling along the medial aspect of the right ankle. IMPRESSION: 1. No acute fracture.
[2019-02-11] MEDS ORDERED: HYDROCODONE/ACETAMINOPHEN 5-325 MG (6 TAB/ER DISP) PO PRN (08:38)
--- NOTE | 2019-02-11 15:53 | EKG REPORT ---
SEVERITY:- NORMAL ECG - SINUS RHYTHM : Confirmed by: Bessie De Los Santos MD 11-Feb-2019 15:51:28
== END 2019-02-11 08:59 | disposition home or self-care (01) ==
LOC: ER 05:17
DX: S80.02XA Contusion of left knee, initial encounter (principal); S93.509A Unspecified sprain of unspecified toe(s), initial encounter; M79.672 Pain in left foot; W01.0XXA Fall on same level from slipping, tripping and stumbling without subsequent striking against object, initial encounter; Y92.000 Kitchen of unspecified non-institutional (private) residence as the place of occurrence of the external cause; I89.0 Lymphedema, not elsewhere classified; I48.91 Unspecified atrial fibrillation; Z86.73 Personal history of transient ischemic attack (TIA), and cerebral infarction without residual deficits
CPT/HCPCS: 93005; 36415; 82550; 85025; 85610; 80053; 84484; 73630; 73590; 93010; A9270

== ENCOUNTER 2019-07-15 03:05 | Emergency (ER) | payer MEDICARE, OTHER ==
[2019-07-15] MEDS ORDERED: OXYCODONE-ACETAMINOPHEN 5-325 MG TABLET PO ONE (06:38)
--- NOTE | 2019-07-15 06:43 | ER Document Report ---
ED General - General Chief Complaint: Back Injury Stated Complaint: FALL/BACK PAIN Time Seen by Provider: 07/15/19 06:08 Primary Care Provider: HELGA ARSHAD MD [Primary Care Provider] - Follow up as needed TRAVEL OUTSIDE OF THE [place] IN LAST 30 DAYS: No - HPI Notes: 74-year-old white female reports she slipped on ice on her kitchen floor 2 days ago and fell striking her right posterior rib area. Very sore with movement or taking a deep breath. Denies other injuries. No loss of consciousness. Pain is 8/10. Minimal relief with Tylenol. Patient has been applying ice packs. Primary care physician Dr. Willi Arshad. - Related Data Allergies/Adverse Reactions: sumatriptan [From Imitrex] Allergy (Severe, Verified 09/24/16 18:05) ketorolac tromethamine [From Toradol] Allergy (Intermediate, Verified 09/24/16 18:05) itching, hives Sulfa (Sulfonamide Antibiotics) Allergy (Intermediate, Verified 09/24/16 18:05) hives, anaphylaxis prochlorperazine maleate [From Compazine] Allergy (Verified 09/24/16 18:05) Home Medications: lisinopril 20 gm qday. levothyroxine 0.075 mg qday. metoprolol 25 mg bid. lansoprazole 15 mg qday. atorvastatin 40 mg qhs. vit d2 50,000 qweek. alondronate 70 mg q week Past Medical History - General Information source: Patient - Social History Smoking Status: Never Smoker Drug Abuse: None Lives with: Family Family History: Reviewed & Not Pertinent, CVA - Father and mother Patient has suicidal ideation: No Patient has homicidal ideation: No - Past Medical History Cardiac Medical History: Reports: Hx Hypercholesterolemia, Hx Hypertension Denies: Hx Heart Attack Pulmonary Medical History: Reports: Hx Bronchitis, Hx Pneumonia Denies: Hx Asthma Neurological Medical History: Reports: Hx Cerebrovascular Accident - 07/08/2016, Hx Migraine. Denies: Hx Seizures Endocrine Medical History: Reports: Hx Hypothyroidism Renal/ Medical History: Denies: Hx Peritoneal Dialysis GI Medical History: Reports: Hx Gastroesophageal Reflux Disease, Hx Hiatal Hernia - REPAIRED . Denies: Hx Hepatitis, Hx Ulcer Psychiatric Medical History: Reports: Hx Anxiety, Hx Depression Infectious Medical History: Denies: Hx Hepatitis Past Surgical History: Reports: Hx Abdominal Surgery - HERNIA REPAIR, Hx Adenoidectomy, Hx Orthopedic Surgery - left wrist, Hx Tonsillectomy, Hx Tubal Ligation. Denies: Hx Mastectomy, Hx Open Heart Surgery, Hx Pacemaker - Immunizations Hx Diphtheria, Pertussis, Tetanus Vaccination: Yes Hx Pneumococcal Vaccination: 06/26/15 Review of Systems - Review of Systems Notes: Constitutional: Negative for fever. HENT: Negative for sore throat. Eyes: Negative for visual changes. Cardiovascular: Negative for chest pain. Respiratory: Negative for shortness of breath. Gastrointestinal: Negative for abdominal pain, vomiting or diarrhea. Genitourinary: Negative for dysuria. Musculoskeletal: As per HPI. Skin: Negative for rash. Neurological: Negative for headaches, weakness or numbness. 10 point ROS negative except as marked above and in HPI. Physical Exam - Vital signs Vitals: Temp Pulse Resp BP Pulse Ox 97.8 F 98 16 148/84 H 100 07/15/19 03:10 07/15/19 03:10 07/15/19 03:10 07/15/19 03:10 07/15/19 03:10 - Notes Notes: GENERAL: Well-developed well-nourished appearing in moderate pain holding ice pack to right flank area. SKIN: Good turgor no rashes. HEAD: Normocephalic atraumatic. EYES: PERRLA. EOMI. Conjunctivae and sclerae clear. EARS: CANALS AND TMS CLEAR. NOSE: CLEAR. MOUTH: Moist mucosa. Good dentition. No stridor or edema. No drooling. NECK: Supple. No masses or thyromegaly. No adenopathy. Carotids 2+ without bruits. No JVD. BACK: Tender over lower posterior rib cage area on the right. No palpable crepitus or step-off. No visible ecchymoses. CHEST: Respirations unlabored. Breath sounds clear and symmetrical. HEART: Regular rhythm. No murmur gallop or rub. ABDOMEN: Soft nontender without masses, organomegaly or rebound. Bowel sounds normally active. No bruits. GENITALIA: Deferred. EXTREMITIES: No edema. No calf tenderness. Cap refill less than 1.5 seconds. Dorsalis pedis and posterior tibial pulses 3+ and symmetrical. NEUROLOGICAL: GCS 15. Alert and oriented x3. Normal gait. Fluent speech. Cranial nerves II through XII intact. Sensorimotor and cerebellar normal. Normal tone. PSYCHIATRIC: Appropriate affect. Course - Re-evaluation Re-evalutation: 07/15/19 06:42 Percocet given for pain here. Await results of PA and lateral chest x-ray for evaluation of ribs on the right. 07/15/19 07:16 PA and lateral chest x-ray reviewed by me showing no gross fracture evident and no other substantial abnormalities. Clinically I think she has cracked ribs and we will treat her symptomatically. - Vital Signs Vital signs: Temp Pulse Resp BP Pulse Ox 97.8 F 98 16 148/84 H 100 07/15/19 03:10 07/15/19 03:10 07/15/19 03:10 07/15/19 03:10 07/15/19 03:10 - Diagnostic Test Radiology reviewed: Image reviewed - Normal PA and lateral chest x-ray Discharge - Discharge Clinical Impression: Right posterior rib injury Fall Qualifiers: Encounter type: initial encounter Qualified Code(s): W19.XXXA - Unspecified fall, initial encounter Condition: Stable Disposition: HOME, SELF-CARE Instructions: Ice Packs ([facility]), Oral Narcotic Medication ([facility]) Additional Instructions: Rib Injuries and Fractures You have been diagnosed as having either bruised or broken ribs. These two injuries are treated in the same way. It will usually take four to six weeks for these injured ribs to heal. Sometimes, rib belts or anesthetic injections of the chest wall help reduce the pain. If you are using a rib belt, you should cough or take a deep breath at least every hour or two to prevent lung complications. You should not engage in any strenuous physical activity until released by your physician. The usual rule is "if it hurts, don't do it." Rib fractures can lead to serious lung complications including lung collapse, hemorrhage, and pneumonia. You should call the physician or return at once if any of the following occur: (1) Fever or chills. (2) Persistent cough, coughing up blood, or shortness of breath. (3) Increasing pain. (4) Weakness, lightheadedness, or fainting. Return here as needed for new or worsening symptoms: Pain that is worsening or unimproved Uncontrolled vomiting High fever or shaking chills Overall worsening Follow-up with primary care provider within the next 1 week. Prescriptions: Oxycodone HCl/Acetaminophen [Percocet 5-325 mg Tablet] 1 - 2 tab PO Q4H PRN #25 tablet PRN Reason: Referrals: HELGA ARSHAD MD [Primary Care Provider] - Follow up as needed
--- NOTE | 2019-07-15 07:27 | RADIOLOGY REPORT (SQ) ---
EXAM: XR Chest, 2 Views EXAM DATE/TIME: 07/15/2019 6:59 AM CLINICAL HISTORY: The patient is 74 years old and is Female; Right posterior rib injury TECHNIQUE: Frontal and lateral views of the chest. COMPARISON: Chest radiograph from 07/08/2016 FINDINGS: LUNGS: Unremarkable. No consolidation. PLEURAL SPACE: Unremarkable. No pneumothorax. HEART: No significant enlargement of the cardiac silhouette. MEDIASTINUM: Moderate to large hiatal hernia again demonstrated. BONES/JOINTS: Degenerative changes of the spine. Chronic compression fracture of L1 again demonstrated with associated vertebroplasty changes. No obvious acute fracture. IMPRESSION: No acute findings visualized in the chest.
[2019-07-15] MEDS ORDERED: HYDROCODONE/ACETAMINOPHEN 5-325 MG (6 TAB/ER DISP) PO PRN (07:30)
[2019-07-15 07:39] VITALS: BP 144/57
== END 2019-07-15 07:39 | disposition home or self-care (01) ==
LOC: ER 03:05
DX: S29.9XXA Unspecified injury of thorax, initial encounter (principal); R07.81 Pleurodynia; W01.0XXA Fall on same level from slipping, tripping and stumbling without subsequent striking against object, initial encounter; Z88.2 Allergy status to sulfonamides; E78.00 Pure hypercholesterolemia, unspecified; I10 Essential (primary) hypertension; Z86.73 Personal history of transient ischemic attack (TIA), and cerebral infarction without residual deficits; Z98.51 Tubal ligation status
CPT/HCPCS: 99283; 71046; A9270 ×2

== ENCOUNTER → 2019-11-27 | Outpatient (CLI) | payer MEDICARE, OTHER ==
--- NOTE | 2019-11-27 08:33 | RADIOLOGY REPORT (SQ) ---
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 TECHNIQUE: Dynamic and static grayscale images acquired of the kidneys and bladder and recorded on P ACS. Additional selected color Doppler and spectral images recorded. LIMITATIONS: None. FINDINGS: RIGHT KIDNEY: Normal size measuring 11.4 cm. Normal echogenicity. No solid or suspicious m asses. No hydronephrosis. No calcifications. LEFT KIDNEY: Mild asymmetrically small measuring 9.8 cm. Normal echogenicity. No solid or suspicious masses. No hydronephrosis. No calcifications. BLADDER: Not well evaluated. OTHER FINDINGS: No other significant finding. IMPRESSION: Unremarkable renal ultrasound. No hydronephrosis. TECHNICAL DOCUMENTATION: JOB ID: [id number] 2010 [employer]- All Rights Reserved Reading location - IP/workstation name: [email or web address]
--- NOTE | 2019-11-27 08:36 | RADIOLOGY REPORT (SQ) ---
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 Images reviewed wi th bone, brain and subdural windows. Images stored on PACS. All CT scanners at this facility use dose modulation, iterative reconstruction, and/or weight based d osing when appropriate to reduce radiation dose to as low as reasonably achievable (ALARA). [facility]: Dose Right [facility]: CareDose [facility]: Dose Right [facility]: Teradose 4D [facility]: [employer] RADIATION DOSE: CT Rad equipment meets quality standard of care and radiation dose reduction techniq ues were employed. CTDIvol: 48.6 mGy. DLP: 905 mGy-cm.mGy. LIMITATIONS: None. FINDINGS: VENTRICLES: Prominent. CEREBRUM: No masses. No hemorrhage. No midline shift. Areas of low density in the white matter mos t likely due to chronic micro-vascular ischemic change. No evidence for acute infarction. CEREBELLUM: No masses. No hemorrhage. No alteration of density. No evidence for acute infarction. EXTRAAXIAL SPACES: Age-related involutional change. No fluid collections. No masses. ORBITS AND GLOBE: No intra- or extraconal masses. Normal contour of globe without masses. CALVARIUM: No fracture. PARANASAL SINUSES: No fluid or mucosal thickening. SOFT TISSUES: No mass or hematoma. OTHER: No other significant finding. IMPRESSION: CHRONIC CHANGES OF ATROPHY AND MICROVASCULAR ISCHEMIA. NO ACUTE PROCESS. EVIDENCE OF ACUTE STROKE: NO. TECHNICAL DOCUMENTATION: JOB ID: [id number] Quality ID # [id number]: Final reports with documentation of one or more dose reduction techniques (e.g., Au tomated exposure control, adjustment of the mA and/or kV according to patient size, use of iterative reconstruction technique) 2010 [employer]- All Rights Reserved Reading location - IP/workstation name: [email or web address]
--- NOTE | 2019-11-27 14:57 | RADIOLOGY REPORT (SQ) ---
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 Images stored on PACS. LIMITATIONS: None. FINDINGS: RIGHT CAROTID CCA Velocities: Within normal limits. ICA Velocities Peak systolic 70 cm/s. End diastolic 19 cm/s. Proximal ICA/CCA peak systolic ratio 1.5. Spectra normal. Mild scattered plaque without high-grade stenosis. LEFT CAROTID CCA Velocities: Within normal limits. ICA Velocities Peak systolic 66 cm/s. End diastolic 14 cm/s. Proximal ICA/CCA peak systolic ratio 1.4. Spectra normal. Mild scattered plaque without high-grade stenosis. VERTEBRAL ARTERIES: Antegrade flow. Normal waveforms. SUBCLAVIAN ARTERIES: Not imaged. OTHER: No other significant finding. IMPRESSION: 1. No hemodynamically significant ICA stenosis. 2. Antegrade vertebral arteries. COMMENT: Quality ID #195: Velocity criteria are extrapolated from the diameter data as defined by t he Society of Radiologists in Ultrasound Consensus Conference. Radiology 2003: 229; 340-346. TECHNICAL DOCUMENTATION: JOB ID: [id number] 2010 [employer]- All Rights Reserved Reading location - IP/workstation name: [email or web address]
== END ==
LOC: RAD 07:19
PROVIDERS: ATTEND Internal Medicine
DX: D41.00 Neoplasm of uncertain behavior of unspecified kidney (principal); R31.9 Hematuria, unspecified; G45.0 Vertebro-basilar artery syndrome
CPT/HCPCS: 70450; 76770; 93880

== ENCOUNTER 2020-02-10 06:26 | Emergency (ER) | payer MEDICARE, OTHER ==
--- NOTE | 2020-02-10 07:57 | RADIOLOGY REPORT (SQ) ---
CLINICAL HISTORY: pain fall COMPARISON: None. TECHNIQUE: XR SHOULDER 2 OR MORE VIEWS 02/10/2020 12:00 AM CDT FINDINGS: There is no fracture. Joint spaces are preserved. Soft tissues are unremarkable. IMPRESSION: No acute osseous findings.
--- NOTE | 2020-02-10 08:28 | ER Document Report ---
ED General - General Chief Complaint: Shoulder Pain Stated Complaint: BACK PAIN Time Seen by Provider: 02/10/20 08:07 Primary Care Provider: HELGA ARSHAD MD [Primary Care Provider] - Follow up as needed TRAVEL OUTSIDE OF THE [place] IN LAST 30 DAYS: No - HPI Notes: Chief complaint: Left shoulder injury History of present illness: 74-year-old female states that she lost her balance while walking through her galley kitchen about 3 days ago and twisted to her left striking her left shoulder against a cabinet. Persistent soreness despite taking [id number] NSAIDs. Patient is known to me from prior ED visit in June of this year with a similar injury. 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 She does not use an assistive device for walking. She also has a history of osteoporosis. She is followed by Dr. Willi Goldstein. - Related Data Allergies/Adverse Reactions: sumatriptan [From Imitrex] Allergy (Severe, Verified 09/24/16 18:05) ketorolac tromethamine [From Toradol] Allergy (Intermediate, Verified 09/24/16 18:05) itching, hives Sulfa (Sulfonamide Antibiotics) Allergy (Intermediate, Verified 09/24/16 18:05) hives, anaphylaxis prochlorperazine maleate [From Compazine] Allergy (Verified 09/24/16 18:05) Past Medical History - General Information source: Patient, [facility] Records - Social History Smoking Status: Never Smoker Chew tobacco use (# tins/day): No Frequency of alcohol use: None Drug Abuse: None Family History: Reviewed & Not Pertinent, CVA - Father and mother Patient has homicidal ideation: No - Past Medical History Cardiac Medical History: Reports: Hx Hypercholesterolemia, Hx Hypertension Denies: Hx Heart Attack Pulmonary Medical History: Reports: Hx Bronchitis, Hx Pneumonia Denies: Hx Asthma Neurological Medical History: Reports: Hx Cerebrovascular Accident - 07/08/2016, Hx Migraine. Denies: Hx Seizures Endocrine Medical History: Reports: Hx Hypothyroidism Renal/ Medical History: Denies: Hx Peritoneal Dialysis GI Medical History: Reports: Hx Gastroesophageal Reflux Disease, Hx Hiatal Hernia - REPAIRED . Denies: Hx Hepatitis, Hx Ulcer Musculoskeletal Medical History: Reports Other - Chronic lymphedema both lower extremities Psychiatric Medical History: Reports: Hx Anxiety, Hx Depression Infectious Medical History: Denies: Hx Hepatitis Past Surgical History: Reports: Hx Abdominal Surgery - HERNIA REPAIR, Hx Adenoidectomy, Hx Orthopedic Surgery - left wrist, Hx Tonsillectomy, Hx Tubal Ligation. Denies: Hx Mastectomy, Hx Open Heart Surgery, Hx Pacemaker - Immunizations Hx Diphtheria, Pertussis, Tetanus Vaccination: Yes Hx Pneumococcal Vaccination: 06/26/15 Review of Systems - Review of Systems Notes: Constitutional: Negative for fever. HENT: Negative for sore throat. Eyes: Negative for visual changes. Cardiovascular: Negative for chest pain. Respiratory: Negative for shortness of breath. Gastrointestinal: Negative for abdominal pain, vomiting or diarrhea. Genitourinary: Negative for dysuria. Musculoskeletal: As per HPI. Skin: Negative for rash. Neurological: Negative for headaches, weakness or numbness. 10 point ROS negative except as marked above and in HPI. Physical Exam - Vital signs Vitals: Temp 98.2 F 02/10/20 06:38 - Notes Notes: GENERAL: Elderly female appearing in no acute distress. SKIN: Good turgor no rashes. HEAD: Normocephalic atraumatic. EYES: PERRLA. EOMI. Conjunctivae and sclerae clear. EARS: CANALS AND TMS CLEAR. NOSE: CLEAR. MOUTH: Moist mucosa. Good dentition. No stridor or edema. No drooling. NECK: Supple. No masses or thyromegaly. No adenopathy. Carotids 2+ without bruits. No JVD. BACK: Symmetrical without tenderness. CHEST: Respirations unlabored. Breath sounds clear and symmetrical. HEART: Regular rhythm. No murmur gallop or rub. ABDOMEN: Soft nontender without masses, organomegaly or rebound. Bowel sounds normally active. No bruits. GENITALIA: Deferred. EXTREMITIES: Mild tenderness over lateral aspect of left shoulder. Good range of motion. No deformity, step-off or crepitus. 3+ nonpitting edema of both lower legs. No calf tenderness. Cap refill less than 1.5 seconds. Dorsalis pedis and posterior tibial pulses 3+ and symmetrical. NEUROLOGICAL: GCS 15. Alert and oriented x3. Normal gait. Fluent speech. Cranial nerves II through XII intact. Sensorimotor and cerebellar normal. Normal tone. PSYCHIATRIC: Appropriate affect. Course - Re-evaluation Re-evalutation: 02/10/20 08:28 I reassured patient that her discomfort appears to be primarily due to a soft tissue contusion and possibly a sprain. Recommend use of ice packs with supplemental use of Percocet for pain. Follow-up with primary care physician and may benefit from some physiotherapy. 02/10/20 08:30 Findings, clinical impression and plan of treatment have been discussed with patient/family. Understanding of current findings and recommendations has been acknowledged by them and there is agreement regarding disposition and follow-up. - Vital Signs Vital signs: Temp Pulse Resp BP Pulse Ox 98.2 F 131 H 18 138/108 H 97 02/10/20 06:42 02/10/20 06:42 02/10/20 06:42 02/10/20 06:42 02/10/20 06:42 - Diagnostic Test Radiology reviewed: Reports reviewed - Per radiologist: Left shoulder x-ray negative for fracture dislocation Discharge - Discharge Clinical Impression: Contusion/sprain left shoulder, Fall Condition: Stable Disposition: HOME, SELF-CARE Instructions: Ice Packs ([facility]), Oral Narcotic Medication ([facility]) Additional Instructions: Follow-up with your primary care physician within the next 1 week and discuss potential benefits of physical therapy. Prescriptions: Oxycodone HCl/Acetaminophen [Percocet 5-325 mg Tablet] 1 - 2 tab PO Q4H PRN #15 tablet PRN Reason: Referrals: HELGA ARSHAD MD [Primary Care Provider] - Follow up as needed
[2020-02-10 08:41] VITALS: BP 138/68
== END 2020-02-10 08:41 | disposition home or self-care (01) ==
LOC: ER 06:26
DX: S43.402A Unspecified sprain of left shoulder joint, initial encounter (principal); S40.012A Contusion of left shoulder, initial encounter; W01.198A Fall on same level from slipping, tripping and stumbling with subsequent striking against other object, initial encounter; Y92.000 Kitchen of unspecified non-institutional (private) residence as the place of occurrence of the external cause; I10 Essential (primary) hypertension; Z88.6 Allergy status to analgesic agent; Z88.8 Allergy status to other drugs, medicaments and biological substances; Z87.892 Personal history of anaphylaxis; Z88.2 Allergy status to sulfonamides
CPT/HCPCS: 99284

== ENCOUNTER 2020-03-22 19:33 | Emergency (ER) | payer MEDICARE, OTHER ==
--- NOTE | 2020-03-22 20:08 | ER Document Report ---
ED Medical Screen (RME) - General Chief Complaint: Near Syncope Stated Complaint: SYNCOPE EPISODE/FALL,BODY PAIN FROM FALL Time Seen by Provider: 03/22/20 19:57 Primary Care Provider: HELGA ARSHAD MD [Primary Care Provider] - Follow up as needed Notes: HPI: 74-year-old female presenting for dizziness all day today where she feels off balance. No chest pain no shortness of breath. No sensation of her heart beating irregularly. No room spinning sensation. Patient went out to get the garbage and and lost her balance while pulling on a garbage can falling backwards striking her head and lower back on the ground. Reports headache and low back pain. Patient does report history of high cholesterol hypertension and prior TIA x2 PHYSICAL EXAMINATION: Alert and oriented answering all questions appropriately no nystagmus. Lung sounds are clear to auscultation. Patient moving all extremities equally x4. There is a small hematoma on the vertex of the scalp on the left with tenderness on palpation. There is tenderness over the lower lumbar region of the back in the area of L5 I have greeted and performed a rapid initial assessment of this patient. A comprehensive ED assessment and evaluation of the patient, analysis of test results and completion of medical decision making process will be conducted by an additional ED providers. TRAVEL OUTSIDE OF THE [place] IN LAST 30 DAYS: No - Related Data Allergies/Adverse Reactions: sumatriptan [From Imitrex] Allergy (Severe, Verified 09/24/16 18:05) ketorolac tromethamine [From Toradol] Allergy (Intermediate, Verified 09/24/16 18:05) itching, hives Sulfa (Sulfonamide Antibiotics) Allergy (Intermediate, Verified 09/24/16 18:05) hives, anaphylaxis prochlorperazine maleate [From Compazine] Allergy (Verified 09/24/16 18:05) Past Medical History - Past Medical History Cardiac Medical History: Reports: Hx Hypercholesterolemia, Hx Hypertension Denies: Hx Heart Attack Pulmonary Medical History: Reports: Hx Bronchitis, Hx Pneumonia Denies: Hx Asthma Neurological Medical History: Reports: Hx Cerebrovascular Accident - 07/08/2016, Hx Migraine. Denies: Hx Seizures Endocrine Medical History: Reports: Hx Hypothyroidism Renal/ Medical History: Denies: Hx Peritoneal Dialysis GI Medical History: Reports: Hx Gastroesophageal Reflux Disease, Hx Hiatal Hernia - REPAIRED . Denies: Hx Hepatitis, Hx Ulcer Psychiatric Medical History: Reports: Hx Anxiety, Hx Depression Infectious Medical History: Denies: Hx Hepatitis Past Surgical History: Reports: Hx Abdominal Surgery - HERNIA REPAIR, Hx Adenoidectomy, Hx Orthopedic Surgery - left wrist, Hx Tonsillectomy, Hx Tubal Ligation. Denies: Hx Mastectomy, Hx Open Heart Surgery, Hx Pacemaker - Immunizations Hx Diphtheria, Pertussis, Tetanus Vaccination: Yes Physical Exam - Vital signs Vitals: Temp Pulse Resp BP Pulse Ox 98.2 F 77 20 143/79 H 96 03/22/20 19:48 03/22/20 19:48 03/22/20 19:48 03/22/20 19:48 03/22/20 19:48 Course - Vital Signs Vital signs: Temp Pulse Resp BP Pulse Ox 98.2 F 77 20 143/79 H 96 03/22/20 19:48 03/22/20 19:48 03/22/20 19:48 03/22/20 19:48 03/22/20 19:48 Doctor's Discharge - Discharge Referrals: HELGA ARSHAD MD [Primary Care Provider] - Follow up as needed
--- NOTE | 2020-03-22 20:23 | EKG REPORT ---
SEVERITY:- NORMAL ECG - SINUS RHYTHM : Confirmed by: Bessie De Los Santos MD 22-Mar-2020 20:22:57
[2020-03-22 20:41] LABS: ABSOLUTE EOSINOPHILS # (AUTO) 0.1 10^3/uL (0.0-0.6); ABSOLUTE LYMPHOCYTES (AUTO) 1.9 10^3/uL (0.5-4.7); ABSOLUTE NEUT (AUTO) 3.4 10^3/uL (1.7-8.2); BASOPHILS % (AUTO) 0.4 % (0-2); EOSINOPHILS % (AUTO) 1.9 % (0-6); HEMATOCRIT 41.1 % (36.0-47.0); HEMOGLOBIN 13.3 g/dL (12.0-15.5); LYMPHOCYTES % (AUTO) 29.6 % (13-45); MEAN CORPUSCULAR HEMOGLOBIN 32.6 pg (27.0-33.4); MEAN CORPUSCULAR HGB CONC 32.4 g/dL (32.0-36.0); MEAN CORPUSCULAR VOLUME 100 fl (80-97); MONOCYTES % (AUTO) 15.9 % (3-13); PLATELET COUNT 148 10^3/uL (150-450); RED BLOOD COUNT 4.09 10^6/uL (3.72-5.28); RED CELL DISTRIBUTION WIDTH 17.7 % (11.5-14.0); SEGMENTED NEUTROPHILS % (AUTO) 52.2 % (42-78); TOTAL CELLS COUNTED % (AUTO) 100 %; WHITE BLOOD COUNT 6.5 10^3/uL (4.0-10.5)
[2020-03-22 20:43] LABS: APPEARANCE,URINE CLOUDY; BILIRUBIN,URINE NEGATIVE (NEGATIVE); CALCIUM OXALATE CRYSTALS,URINE MODERATE /HPF; COLOR,URINE AMBER; GLUCOSE, URINE NEGATIVE (NEGATIVE); KETONES,URINE NEGATIVE (NEGATIVE); LEUKOCYTE ESTERASE,URINE LARGE (NEGATIVE); NITRITE,URINE NEGATIVE (NEGATIVE); PROTEIN,URINE 30 mg/dL (NEGATIVE); URINE SPECIFIC GRAVITY 1.023
--- NOTE | 2020-03-22 21:01 | RADIOLOGY REPORT (SQ) ---
EXAM DESCRIPTION: CT CERVICAL SPINE WITHOUT IV CONTRAST COMPLETED DATE/TME: 03/22/2020 20:04 CLINICAL HISTORY: 74 years, Female, trauma COMPARISON: None. TECHNIQUE: Noncontrast CT cervical spine was acquired. Coronal and sagittal reformations were created. Images stored on PACS. All CT scanners at this facility use dose modulation, iterative reconstruction, and/or weight based dosing when appropriate to reduce radiation dose to as low as reasonably achievable (ALARA). [facility]: Dose Right [facility]: CareDose [facility]: Dose Right [facility]: Teradose 4D [facility]: [employer] LIMITATIONS: None. FINDINGS: Limited evaluation of the posterior fossa reveals no suspicious abnormality. Occipital condyles are normal. Lateral masses of C1 and C2 align properly. Base and tip of the dens are intact. Craniocervical alignment is maintained. Moderate multilevel cervical spondylosis is evident, designated by intervertebral space narrowing, hypertrophic endplate spurring, and facet arthropathy. No definite acute fracture or malalignment. However, concomitant bilateral uncovertebral joint hypertrophy and C5-C6 results in moderate right and mild left bilateral neural foraminal stenosis. Visualized lung apices are clear. Paravertebral soft tissues show no suspicious abnormality. IMPRESSION: No acute fracture or malalignment. Moderate multilevel cervical spondylosis. TECHNICAL DOCUMENTATION: Quality ID # [id number]: Final reports with documentation of one or more dose reduction techniques (e.g., Automated exposure control, adjustment of the mA and/or kV according to patient size, use of iterative reconstruction technique) copyright 2011 [employer]- All Rights Reserved
[2020-03-22 21:02] LABS: ALBUMIN 3.6 g/dL (3.5-5.0); ALKALINE PHOSPHATASE 105 U/L (38-126); ANION GAP 6 (5-19); ASPARTATE AMINO TRANSFERASE 38 U/L (14-36); BILIRUBIN,DIRECT 0.2 mg/dL (0.0-0.4); BILIRUBIN,TOTAL 0.6 mg/dL (0.2-1.3); BLOOD UREA NITROGEN 13 mg/dL (7-20); CALCIUM 8.5 mg/dL (8.4-10.2); CARBON DIOXIDE 28 mmol/L (22-30); CHLORIDE 108 mmol/L (98-107); GLUCOSE 103 mg/dL (75-110); POTASSIUM 4.5 mmol/L (3.6-5.0); TOTAL PROTEIN 6.1 g/dL (6.3-8.2)
--- NOTE | 2020-03-22 21:03 | RADIOLOGY REPORT (SQ) ---
EXAM DESCRIPTION: CT HEAD WITHOUT IV CONTRAST COMPLETED DATE/TME: 03/22/2020 20:04 CLINICAL INDICATION: 74-year-old female with dizziness and fall. COMPARISON: 11/27/2019. TECHNIQUE: CT brain without contrast. This exam was performed according to our departmental dose optimization program which includes use of automated exposure control, adjustment of the mA and/or kV according to patient size and/or use of iterative reconstruction technique. FINDINGS: Multifocal regions of patchy hypoattenuation are present in a subcortical and periventricular deep white matter distribution, nonspecific; however, most likely represent small vessel ischemic disease, age indeterminate. The ventricles, and sulci are prominent compatible with underlying volume loss stable in comparison to the previous examination. The elias-white matter differentiation is preserved. There is no mass effect, midline shift, intra- or extra-axial fluid collection/acute hemorrhage. The osseous structures are unremarkable. The paranasal sinuses and mastoid air cells are clear. IMPRESSION: 1. No acute intracranial abnormalities. Nonspecific white matter change most likely small vessel ischemic disease, age indeterminate. 2. CT is insensitive for early evaluation of acute stroke. If there is clinical concern for acute ischemia, an MRI may be considered.
--- NOTE | 2020-03-22 21:27 | RADIOLOGY REPORT (SQ) ---
5 VIEWS LUMBAR SPINE HISTORY: Lower back pain. COMPARISON: 05/18/2018 FINDINGS: No acute compression fracture is seen. There has been prior kyphoplasty of L1. There is normal lumbar lordosis without subluxation. Mild degenerative disc disease at L5-S1. Mild facet arthropathy in the lower lumbar spine. No evidence of spondylolysis on the oblique views. The sacroiliac joints are intact. IMPRESSION: No acute lumbar findings are seen. Mild degenerative changes.
[2020-03-22] MEDS ORDERED: NITROFURANTOIN MONOHYD/M-CRYST 100 MG CAPSULE PO ONE (22:52)
--- NOTE | 2020-03-22 22:58 | ER Document Report ---
ED General - General Chief Complaint: Near Syncope Stated Complaint: SYNCOPE EPISODE/FALL,BODY PAIN FROM FALL Time Seen by Provider: 03/22/20 19:57 Primary Care Provider: HELGA ARSHAD MD [Primary Care Provider] - Follow up as needed TRAVEL OUTSIDE OF THE [place] IN LAST 30 DAYS: No - HPI Context: This is a 74-year-old female with a history of hypertension, high cholesterol, TIA x2, and hypothyroidism with an allergy to sulfa presenting to the emergency department complaining of accidental fall and lightheadedness. Patient states that she was laying down watching TV and decided to get up to take the recycling bin to the road. Patient also decided to work in her yard a little bit and orange picker some fallen branches. Patient states her sensation of lightheadedness worsened and she accidentally fell backwards, striking the back of her head and lower back on the ground. Patient denies loss of consciousness. Patient is complaining of headache and low back pain which she rates as a 3 on a scale of 0-5. She describes the pain as aching. Patient denies sudden visual changes, change in speech, change in gait, loss of motor or sensory function, chest pain, shortness of breath, nausea, vomiting, abdominal pain. Patient denies history of COVID infection, known exposure to persons positive for COVID or exposure to persons under investigation for COVID. Patient states that changing position slightly exacerbates her lightheadedness. Patient denies a sense of dizziness p er se but repeatedly describes it as lightheadedness. Patient states there are no alleviating factors. Patient states that she does not drink water but instead drinks caffeine free sodas. Associated symptoms: Other - See HPI Exacerbated by: Other - See HPI Relieved by: Other - See HPI - Related Data Allergies/Adverse Reactions: sumatriptan [From Imitrex] Allergy (Severe, Verified 09/24/16 18:05) ketorolac tromethamine [From Toradol] Allergy (Intermediate, Verified 09/24/16 18:05) itching, hives Sulfa (Sulfonamide Antibiotics) Allergy (Intermediate, Verified 09/24/16 18:05) hives, anaphylaxis prochlorperazine maleate [From Compazine] Allergy (Verified 09/24/16 18:05) Past Medical History - General Information source: Patient - Social History Smoking Status: Never Smoker Drug Abuse: None Family History: Reviewed & Not Pertinent, CVA - Father and mother Patient has suicidal ideation: No Patient has homicidal ideation: No - Past Medical History Cardiac Medical History: Reports: Hx Hypercholesterolemia, Hx Hypertension Denies: Hx Heart Attack Pulmonary Medical History: Reports: Hx Bronchitis, Hx Pneumonia Denies: Hx Asthma Neurological Medical History: Reports: Hx Cerebrovascular Accident - 07/08/2016, Hx Migraine. Denies: Hx Seizures Endocrine Medical History: Reports: Hx Hypothyroidism Renal/ Medical History: Denies: Hx Peritoneal Dialysis GI Medical History: Reports: Hx Gastroesophageal Reflux Disease, Hx Hiatal Hernia - REPAIRED . Denies: Hx Hepatitis, Hx Ulcer Psychiatric Medical History: Reports: Hx Anxiety, Hx Depression Infectious Medical History: Denies: Hx Hepatitis Past Surgical History: Reports: Hx Abdominal Surgery - HERNIA REPAIR, Hx Adenoidectomy, Hx Orthopedic Surgery - left wrist, Hx Tonsillectomy, Hx Tubal Ligation. Denies: Hx Mastectomy, Hx Open Heart Surgery, Hx Pacemaker - Immunizations Hx Diphtheria, Pertussis, Tetanus Vaccination: Yes Hx Pneumococcal Vaccination: 06/26/15 Review of Systems - Review of Systems Constitutional: No symptoms reported EENT: No symptoms reported Cardiovascular: Lightheaded Respiratory: No symptoms reported Gastrointestinal: No symptoms reported Genitourinary: No symptoms reported Female Genitourinary: No symptoms reported Musculoskeletal: Back pain Skin: No symptoms reported Hematologic/Lymphatic: No symptoms reported Neurological/Psychological: Headaches -: Yes All other systems reviewed and negative Physical Exam - Vital signs Vitals: Temp Pulse Resp BP Pulse Ox 98.2 F 77 20 143/79 H 96 03/22/20 19:48 03/22/20 19:48 03/22/20 19:48 03/22/20 19:48 03/22/20 19:48 - Notes Notes: CONSTITUTIONAL [Vital signs reviewed, Patient appears comfortable, Alert and oriented X 3, Normal stature.] HEAD [Patient has a area of soft tissue swelling about 3 cm in diameter in the region with food in her superior occipital scalp in the midline. There is no crepitus or step-off.] EYES [Eyes are normal to inspection, No discharge from eyes, Extraocular muscles intact, Sclera are normal, Conjunctiva are normal. There is no vertical or horizontal nystagmus appreciated.] ENT No nasal or oropharyngeal trauma appreciated] NECK [Normal ROM, No jugular venous distention, No meningeal signs, no carotid br uit.] RESPIRATORY CHEST [Chest is nontender, Breath sounds normal, No respiratory distress.] CARDIOVASCULAR [RRR, No murmurs, Normal S1 S2, No rub, No gallop.] ABDOMEN [Abdomen is nontender, No pulsatile masses, No other masses, Bowel sounds normal, No distension, No peritoneal signs, No hernias.] BACK [There is no CVA Tenderness, There is no tenderness to palpation. There is no deformity step-off or midline tenderness appreciated.] UPPER EXTREMITY [Inspection normal, No cyanosis, No clubbing, No edema, 2+ radial pulses.] LOWER EXTREMITY [Inspection normal, No cyanosis, No clubbing, No edema, No calf tenderness, 2+ femoral pulses. No foreshortening of the lower extremities is present.] NEURO [No focal motor deficits, No focal sensory deficits, Speech normal.] SKIN [Skin is warm, Skin is dry, Skin is normal color.] LYMPHATIC [No adenopathy in neck.] PSYCHIATRIC [Normal affect. ] Course - Re-evaluation Re-evalutation: 03/22/20 23:13 Results of ED MSE discussed with patient. All questions were answered prior to discharge. Emergency signs and symptoms, reasons to return to the emergency department discussed with patient. - Vital Signs Vital signs: Temp Pulse Resp BP Pulse Ox 98.2 F 73 25 H 163/86 H 97 03/22/20 19:48 03/22/20 22:37 03/22/20 22:35 03/22/20 22:37 03/22/20 22:35 - Laboratory Result Diagrams: 03/22/20 20:22 03/22/20 20:22 Laboratory results interpreted by me: 03/22/20 03/22/20 03/22/20 20:22 20:22 20:22 MCV 100 H RDW 17.7 H Plt Count 148 L [place] % (Auto) 15.9 H Chloride 108 H AST 38 H ALT 45 H Total Protein 6.1 L TSH 5.83 H Urine Protein Urine Blood Urine Urobilinogen Ur Leukocyte Esterase 03/22/20 20:22 MCV RDW Plt Count [place] % (Auto) Chloride AST ALT Total Protein TSH Urine Protein 30 H Urine Blood SMALL H Urine Urobilinogen 4.0 H Ur Leukocyte Esterase LARGE H - Diagnostic Test Radiology reviewed: Reports reviewed - EKG Interpretation by Me Additional EKG results interpreted by me: 03/22/20 23:01 EKG obtained on 03/22/2020 at 2011 hrs. was interpreted by this MD. Findings: Normal sinus rhythm, rate 72, IN interval is within normal limits, normal axis, P waves preceding QRS complexes, QRS complexes appear narrow, QTC is 412, there are no obvious patterns of ST elevation or depression seen to suggest acute myocardial ischemia or infarction. When compared to prior EKG from 02/11/2019 there does not appear to be any significant change in the gross morphology. Impression: Normal sinus rhythm with nonspecific ST segments. Discharge - Discharge Clinical Impression: Accidental fall Qualifiers: Encounter type: initial encounter Qualified Code(s): W19.XXXA - Unspecified fall, initial encounter Head contusion Qualifiers: Encounter type: initial encounter Contusion of head detail: scalp Qualified Code(s): S00.03XA - Contusion of scalp, initial encounter Lumbar contusion Qualifiers: Encounter type: initial encounter Qualified Code(s): S30.0XXA - Contusion of lower back and pelvis, initial encounter Condition: Stable Disposition: HOME, SELF-CARE Additional Instructions: Return to the Emergency Department without delay if any worse. HOME CARE INSTRUCTIONS & INFORMATION: Thank you for choosing us for your medical needs. We hope you're satisfied with the care you received. After you leave, you must properly care for your problem and, at the same time, observe its progress. Any condition can change. Some illnesses can change rapidly over hours or days. If your condition worsens, return to the Emergency Department or see your physician promptly. ABOUT YOUR X-RAYS AND EKG'S: If you had an EKG or X-rays taken, they have been read by the Emergency Physician. The X-rays and EKG's will also be read by a Radiologist or [employer] within 24 hours. If discrepancies are noted, you will be notified by telephone. Please be certain the ED has a correct telephone number & address where you can be reached. Also, realize that some fractures or abnormalities do not show up on initial X-rays. If your symptoms continue, see your physician. ABOUT YOUR LABORATORY TEST: If you had laboratory tests, the results have been reviewed by the Emergency Physician. Some test results (for example cultures) may not be available for several days. You will be contacted if any test result shows you need additional treatment. Please be certain the ED has a correct telephone number and address where you can be reached. ABOUT YOUR MEDICATIONS: You will receive instructions on how to take your medicine on the prescription label you receive. Additional information may be provided by the Pharmacy. If you have questions afterwards, call the ED for clarification or further instructions. Some prescribed medications may cause drowsiness. Do not perform tasks such as driving a car or operating machinery without consulting your Pharmacist. If you feel you need a refill of pain medication, your condition will need re-evaluation. Please do not call for a refill of any medication. ABOUT YOUR SIGNATURE: Signature of this document acknowledges to followin. Understanding that you received emergency treatment and that you may be released before al medical problems are known or treated. Please be certain the ED has a correct phone number & address where you can be reached. 2. Acknowledgement that you will arrange for follow-up care as recommended. 3. Authorization for the Emergency Physician to provide information to your f ollow-up Physician in order to maximize your care. AT ANY TIME, IF YOUR SYMPTOMS CHANGE SIGNIFICANTLY OR WORSEN OR YOU DEVELOP NEW SYMPTOMS, RETURN TO THE EMERGENCY DEPARTMENT IMMEDIATELY FOR RE-EVALUATION. OUR GOAL IS TO PROVIDE EXCELLENT MEDICAL CARE! WE HOPE THAT WE HAVE MET YOUR EXPECTATIONS DURING YOUR EMERGENCY DEPARTMENT VISIT AND THAT YOU FEEL YOU HAVE RECEIVED EXCELLENT CARE! Contusion Your injury has resulted in a contusion -- a crushing of the deep tissues. No injury to important structures was detected during the physician's exam. Contusions vary in the amount of pain they cause, and in the length of time required for healing. Typically, the area will become bruised, and will remain painful to touch for two or three weeks. However, most patients are back to working and playing within a few days. After the initial period of rest and cold-packs, your symptoms (together with the doctor's recommendations) will determine how rapidly you can get back to full activity. Usually this means "do what feels okay, but don't do things that hurt." If re-examination was recommended, it's important to follow up as instructed. Call the doctor or return any time if pain increases, if swelling becomes severe, if you develop numbness or weakness in an injured extremity, or if any other alarming symptoms occur. Urinary Tract Infection Your evaluation indicates that you have a urinary tract infection. This is due to germs growing in the bladder. This is a common problem. This infection usually responds quickly to antibiotics. Your antibiotic should be taken exactly as prescribed. Drink plenty of fluids -- three to four quarts a day. Occasionally, a bladder anesthetic will be prescribed to help stop the feeling of urgency until the antibiotic has a chance to clear the infection. This may cause your urine to be dark orange. Certain urine infections require a culture. If the doctor obtained a culture, the results will be back in two days. You should call to see if a change in treatment is needed. A repeat urinalysis after you finish treatment is often recommended. The physician will let you know if further testing is required. Call the doctor if you develop fever, chills, flank pain, inability to urinate, or blood in the urine. Prescriptions: Nitrofurantoin Monohyd/M-Cryst [Macrobid 100 mg Capsule] 100 mg PO BID #14 cap Referrals: HELGA ARSHAD MD [Primary Care Provider] - Follow up as needed
[2020-03-22 23:10] VITALS: BP 160/76
== END 2020-03-22 23:15 | disposition home or self-care (01) ==
LOC: ER 19:33
DX: S00.03XA Contusion of scalp, initial encounter (principal); S30.0XXA Contusion of lower back and pelvis, initial encounter; R55 Syncope and collapse; M79.10 Myalgia, unspecified site; W18.39XA Other fall on same level, initial encounter; Y92.007 Garden or yard of unspecified non-institutional (private) residence as the place of occurrence of the external cause; I10 Essential (primary) hypertension; E78.00 Pure hypercholesterolemia, unspecified; Z86.74 Personal history of sudden cardiac arrest
CPT/HCPCS: 93005; 99285; 36415; 83735; 84443; 85025; 80053; 81001; 84484; 72110; 70450; 72125; 93010; A9270; J8499

== ENCOUNTER 2020-06-08 10:17 | Inpatient (IN) | payer MEDICARE, OTHER ==
--- NOTE | 2020-06-08 10:38 | ER Document Report ---
ED Medical Screen (RME) - General Chief Complaint: General Weakness Stated Complaint: MEDICATION REFILL Time Seen by Provider: 06/08/20 10:30 Primary Care Provider: HELGA ARSHAD MD [Primary Care Provider] - Follow up as needed Notes: Patient is a 75-year-old female who presents to the emergency department with a self-reported TIA symptoms. Patient states that her arms were not moving the way they should. Patient reports that she has history of TIAs in the past. Her symptoms started around 1015 this morning. Patient states that she took her last dose of her Percocet. Exam: Patient holding the phone up to her ear saying that she was on an important phone call, but there was no one on the other line. Equal hand spring former strength in upper extremities. I have greeted and performed a rapid initial assessment of this patient. A comprehensive ED assessment and evaluation of the patient, analysis of test results and completion of medical decision making process will be conducted by an additional ED providers. TRAVEL OUTSIDE OF THE [place] IN LAST 30 DAYS: No - Related Data Allergies/Adverse Reactions: sumatriptan [From Imitrex] Allergy (Severe, Verified 09/24/16 18:05) ketorolac tromethamine [From Toradol] Allergy (Intermediate, Verified 09/24/16 18:05) itching, hives Sulfa (Sulfonamide Antibiotics) Allergy (Intermediate, Verified 09/24/16 18:05) hives, anaphylaxis prochlorperazine maleate [From Compazine] Allergy (Verified 09/24/16 18:05) Past Medical History - Past Medical History Cardiac Medical History: Reports: Hx Hypercholesterolemia, Hx Hypertension Denies: Hx Heart Attack Pulmonary Medical History: Reports: Hx Bronchitis, Hx Pneumonia Denies: Hx Asthma Neurological Medical History: Reports: Hx Cerebrovascular Accident - 07/08/2016, Hx Migraine. Denies: Hx Seizures Endocrine Medical History: Reports: Hx Hypothyroidism Renal/ Medical History: Denies: Hx Peritoneal Dialysis GI Medical History: Reports: Hx Gastroesophageal Reflux Disease, Hx Hiatal Hernia - REPAIRED . Denies: Hx Hepatitis, Hx Ulcer Psychiatric Medical History: Reports: Hx Anxiety, Hx Depression Infectious Medical History: Denies: Hx Hepatitis Past Surgical History: Reports: Hx Abdominal Surgery - HERNIA REPAIR, Hx Adenoidectomy, Hx Orthopedic Surgery - left wrist, Hx Tonsillectomy, Hx Tubal Ligation. Denies: Hx Mastectomy, Hx Open Heart Surgery, Hx Pacemaker - Immunizations Hx Diphtheria, Pertussis, Tetanus Vaccination: Yes Physical Exam - Vital signs Vitals: Temp Pulse Resp BP Pulse Ox 98.2 F 108 H 18 155/105 H 98 06/08/20 10:24 06/08/20 10:24 06/08/20 10:24 06/08/20 10:24 06/08/20 10:24 Course - Vital Signs Vital signs: Temp Pulse Resp BP Pulse Ox 98.2 F 108 H 18 155/105 H 98 06/08/20 10:24 06/08/20 10:24 06/08/20 10:24 06/08/20 10:24 06/08/20 10:24 Doctor's Discharge - Discharge Referrals: HELGA ARSHAD MD [Primary Care Provider] - Follow up as needed
--- NOTE | 2020-06-08 11:40 | RADIOLOGY REPORT (SQ) ---
EXAM DESCRIPTION: CT HEAD WITHOUT IMAGES COMPLETED DATE/TIME: 06/08/2020 11:25 am REASON FOR STUDY: AMS; Hx of TIA COMPARISON: CT of the head without contrast from 03/22/2020. TECHNIQUE: Axial images acquired through the brain without intravenous contrast. Images reviewed wi th bone, brain and subdural windows. Additional sagittal and coronal reconstructions were generated. Images stored on PACS. All CT scanners at this facility use dose modulation, iterative reconstruction, and/or weight based d osing when appropriate to reduce radiation dose to as low as reasonably achievable (ALARA). [facility]: Dose Right [facility]: CareDose [facility]: Dose Right [facility]: Teradose 4D [facility]: Smart Shock Treatment Management RADIATION DOSE: CT Rad equipment meets quality standard of care and radiation dose reduction techniq ues were employed. CTDIvol: 49.0 mGy. DLP: 961 mGy-cm. LIMITATIONS: None. FINDINGS: Unchanged areas of low-attenuation in the supratentorial periventricular and subcortical w renea matter. There is no acute intracranial hemorrhage, vascular territorial infarct, extra-axial fl uid collection, mass effect or midline shift. The elias-white matter differentiation is preserved. T he caliber of the ventricles is concordant with the degree of sulcation. There is no effacement of t he cerebral sulci or basal subarachnoid cisterns. The globes are aphakic. The orbits are intact. The paranasal sinuses are clear. There is no fractu re of the calvarium parent. IMPRESSION: No acute intracranial abnormality. EVIDENCE OF ACUTE STROKE: NO. COMMENT: Quality ID # [id number]: Final reports with documentation of one or more dose reduction techniques (e.g., Automated exposure control, adjustment of the mA and/or kV according to patient size, use of iterative reconstruction technique) TECHNICAL DOCUMENTATION: JOB ID: [id number] 2010 [employer]- All Rights Reserved Reading location - IP/workstation name: [email or web address]
[2020-06-08] MEDS ORDERED: ASPIRIN 325 MG TABLET PO ONE (11:43)
[2020-06-08 11:50] LABS: ABSOLUTE EOSINOPHILS # (AUTO) 0.1 10^3/uL (0.0-0.6); ABSOLUTE LYMPHOCYTES (AUTO) 1.3 10^3/uL (0.5-4.7); ABSOLUTE MONOCYTES (AUTO) 0.8 10^3/uL (0.1-1.4); ABSOLUTE NEUT (AUTO) 3.9 10^3/uL (1.7-8.2); BASOPHILS % (AUTO) 0.3 % (0-2); EOSINOPHILS % (AUTO) 1.7 % (0-6); HEMATOCRIT 40.6 % (36.0-47.0); HEMOGLOBIN 13.8 g/dL (12.0-15.5); LYMPHOCYTES % (AUTO) 21.6 % (13-45); MEAN CORPUSCULAR HEMOGLOBIN 34.6 pg (27.0-33.4); MEAN CORPUSCULAR HGB CONC 33.9 g/dL (32.0-36.0); MEAN CORPUSCULAR VOLUME 102 fl (80-97); MONOCYTES % (AUTO) 13.3 % (3-13); PLATELET COUNT 128 10^3/uL (150-450); RED BLOOD COUNT 3.98 10^6/uL (3.72-5.28); RED CELL DISTRIBUTION WIDTH 19.2 % (11.5-14.0); SEGMENTED NEUTROPHILS % (AUTO) 63.1 % (42-78); TOTAL CELLS COUNTED % (AUTO) 100 %; WHITE BLOOD COUNT 6.1 10^3/uL (4.0-10.5)
[2020-06-08 11:58] LABS: INTERNATIONAL RATION (INR) 0.96
[2020-06-08 12:11] LABS: ALBUMIN 4.6 g/dL (3.5-5.0); ALKALINE PHOSPHATASE 101 U/L (38-126); ANION GAP 13 (5-19); ASPARTATE AMINO TRANSFERASE 27 U/L (14-36); BILIRUBIN,DIRECT 0.3 mg/dL (0.0-0.4); BILIRUBIN,TOTAL 1.4 mg/dL (0.2-1.3); BLOOD UREA NITROGEN 10 mg/dL (7-20); CALCIUM 9.4 mg/dL (8.4-10.2); CARBON DIOXIDE 24 mmol/L (22-30); CHLORIDE 105 mmol/L (98-107); GLUCOSE 121 mg/dL (75-110); POTASSIUM 3.4 mmol/L (3.6-5.0); TOTAL PROTEIN 7.9 g/dL (6.3-8.2)
[2020-06-08 12:19] LABS: ACETAMINOPHEN < 10 ug/mL (10-30)
[2020-06-08 12:38] LABS: APPEARANCE,URINE SLIGHTLY-CLOUDY; BILIRUBIN,URINE NEGATIVE (NEGATIVE); COLOR,URINE YELLOW; GLUCOSE, URINE NEGATIVE (NEGATIVE); KETONES,URINE TRACE mg/dL (NEGATIVE); LEUKOCYTE ESTERASE,URINE SMALL (NEGATIVE); NITRITE,URINE NEGATIVE (NEGATIVE); PROTEIN,URINE NEGATIVE (NEGATIVE); URINE SPECIFIC GRAVITY 1.004; UROBILINOGEN,URINE NEGATIVE mg/dL (<2.0)
--- NOTE | 2020-06-08 13:22 | ER Document Report ---
ED NIH Stroke Scale - NIH Stroke Scale *: 1. NIH scale should be completed with appropriate accompanying assessment tools. *: 2. The NIH should reflect what the patient is capable of doing and should not be coached by the clinician. 1a. Level of Consciousness: 0=Alert;keenly responsive -: 1=Drowsy -: 2=Obtunded -: 3=Coma/unresponsive or reflex to noxious stimuli. 1a. Responses: 0 1b. Orientation Questions: a. What month is it? -: b. How old are you? -: 0=Answers both questions correctly. -: 1=Answers one question correctly or patient is intubated or has orotracheal trauma. -: 2=Answers neither question correctly. 1b. Responses: 1 1c. Response to commands: a. Open and close eyes? -: b. Motor Vehicle Compliance Analyst and release hand? -: Credit is given despite weakness. Demonstration of task is permitted. Substitute command if hands cannot be used. -: 0=Performs both tasks correctly -: 1=Performs one task correctly -: 2=Performs neither task correctly 1c. Responses: 0 2. Gaze: Establish eye contact and instruct patient to "Follow my finger" -: 0=Normal -: 1=Partial gaze palsy. Gaze is abnormal in one or both eyes, but where forced deviation or total gaze paresis is not present. -: 2=Forced deviation or total gaze paresis. 2. Responses: 0 3. Visual [place]: Sees fingers in all four quadrants. -: 0=No visual loss. -: 1=Partial hemianopsia. -: 2=Complete hemianopsia. -: 3=Bilateral hemianopsia (including Cortical blindness) 3. Responses: 0 4. Facial Movement: Instruct patient to: -: a. Show me your teeth -: b. Raise your eyebrows -: c. Close your eyes -: d. Smile -: 0=Normal symmetrical movement -: 1=Minor paralysis (flattened nasolabial fold, asymmetry on smiling). -: 2=Partial paralysis (total or near total paralysis of lower face). -: 3=Complete paralysis of upper and lower face 4. Responses: 0 5. Motor functions (left arm): Alternate sides and extend each arm with palms down (90 degrees if sitting or 45 degrees for supine). -: 0=No drift;limb holds for full 10 seconds. -: 1=Drift; limb holds but drifts down before full 10 seconds, but does not hit bed. -: 2=Some effort against gravity; limb cannot get to or maintain position. -: 3=No effort against gravity; limb falls. -: 4=No movement. -: UN=Amputation, joint fusion, explain in comments. 5. Responses (left arm): 0 5. Motor Functions (right arm): Alternate sides and extend each arm with palms down (90 degrees if sitting or 45 degrees for supine). -: 0=No drift;limb holds for full 10 seconds. -: 1=Drift; limb holds but drifts down before full 10 seconds, but does not hit bed. -: 2=Some effort against gravity; limb cannot get to or maintain position. -: 3=No effort against gravity; limb falls. -: 4=No movement. -: UN=Amputation, joint fusion, explain in comments. 5. Responses (right arm): 0 6. Motor Functions (left leg): With patient lying supine, alternate sides and extend each leg (30 degrees always while supine). -: 0=No drift, leg holds position for full 5 seconds -: 1=Drift; leg falls before full 5 seconds but does not hit bed. -: 2=Some effort against gravity, leg falls to bed but some effort against gravity. -: 3=No effort against gravity, leg falls to bed immediately. -: 4=No movement. -: UN=Amputation, joint fusion; explain in comments. 6. Responses (left leg): 0 6. Motor Functions (right leg): With patient lying supine, alternate sides and extend each leg (30 degrees always while supine). -: 0=No drift, leg holds position for full 5 seconds -: 1=Drift; leg falls before full 5 seconds but does not hit bed. -: 2=Some effort against gravity, leg falls to bed but some effort against gravity. -: 3=No effort against gravity, leg falls to bed immediately. -: 4=No movement. -: UN=Amputation, joint fusion; explain in comments. 6. Responses (right leg): 0 7. Limb Ataxia: With eyes open instruct patient to: -: a. "Touch your finger to your nose". -: b. "Touch your heel to your pineda" -: 0=Absent -: 1=Present in one limb. -: 2=Present in two limbs. -: UN=Amputation or joint fusion; explain in comments. 7. Responses: 0 8. Sensory: Test sensation using pinprick or noxious stimuli. Test as many body parts as possible. -: 0=Normal;no sensory loss -: 1=Mile to moderate sensory loss (patient feels pin prick but is less sharp on affected side). -: 2=Severe or total sensory loss. 8. Responses: 0 9. Best Language: Instruct patient to: -: a. "Describe what you see in this picture." -: b. "Name the items in this picture." -: c. "Read these sentences." -: 0=No aphasia, normal -: 1=Mild to moderate aphasia. -: 2=Severe aphasia -: 3=Mute, global aphasia, no usable speech or auditory comprehension. 9. Responses: 1 10. Articulation, Dysarthia: Instruct patient to: -: "Read these words" or "Repeat these words" -: 0=Normal -: 1=Mild to moderate; patient may slur some words but can be understood without difficulty. -: 2=Severe; patients speech so slurred as to be unintelligible in the absence of dysphasia. -: UN=Intubated or other physical barrier, explain in comments. 10. Responses: 0 11. Extinction or inattention: 0=No abnormality -: 1= Visual, tactile, auditory, spatial, or personal inattention or extinction to bilateral simulation in one or the sensory modalities. -: 2=Profound miguel-inattention or miguel-inattention to more than one modality; does not recognize own hand. 11. Responses: 0 Total Score: 2
--- NOTE | 2020-06-08 13:26 | ER Document Report ---
ED General - General Chief Complaint: General Weakness Stated Complaint: MEDICATION REFILL Time Seen by Provider: 06/08/20 10:30 Primary Care Provider: HELGA ARSHAD MD [Primary Care Provider] - Follow up as needed Mode of Arrival: Ambulatory Information source: Patient TRAVEL OUTSIDE OF THE [place] IN LAST 30 DAYS: No - HPI Notes: Patient comes in stating that she feels she may be having a TIA. She states she had a TIA this past summer and that her symptoms feel similar. Last known well time was approximately 6 PM yesterday. This is based upon the fact the patient cannot tell me when the symptoms started but a friend who was present in the room states that she talk to her on the phone yesterday approximate 6 PM and the patient did not have any apparent deficits. Patient states she has been having trouble getting words out and feeling confused which is why she came to the emergency department. No known falls or trauma. No cough cold or congestion. She does not know of anything that makes the symptoms better or worse. She states she has been having trouble sleeping and she has been under a lot of stress. She also states she has a history of migraines and currently has a migraine headache. This headache is constant and throbbing. It is diffuse across her head. It is worse with movement and better with rest. - Related Data Allergies/Adverse Reactions: sumatriptan [From Imitrex] Allergy (Severe, Verified 09/24/16 18:05) ketorolac tromethamine [From Toradol] Allergy (Intermediate, Verified 09/24/16 18:05) itching, hives Sulfa (Sulfonamide Antibiotics) Allergy (Intermediate, Verified 09/24/16 18:05) hives, anaphylaxis prochlorperazine maleate [From Compazine] Allergy (Verified 09/24/16 18:05) Past Medical History - General Information source: Patient - Social History Smoking Status: Never Smoker Frequency of alcohol use: None Drug Abuse: None, Prescription drugs Family History: Reviewed & Not Pertinent, CVA - Father and mother - Past Medical History Cardiac Medical History: Reports: Hx Hypercholesterolemia, Hx Hypertension Denies: Hx Heart Attack Pulmonary Medical History: Reports: Hx Bronchitis, Hx Pneumonia Denies: Hx Asthma Neurological Medical History: Reports: Hx Cerebrovascular Accident - 07/08/2016, Hx Migraine. Denies: Hx Seizures Endocrine Medical History: Reports: Hx Hypothyroidism Renal/ Medical History: Denies: Hx Peritoneal Dialysis GI Medical History: Reports: Hx Gastroesophageal Reflux Disease, Hx Hiatal Hernia - REPAIRED . Denies: Hx Hepatitis, Hx Ulcer Psychiatric Medical History: Reports: Hx Anxiety, Hx Depression Infectious Medical History: Denies: Hx Hepatitis Past Surgical History: Reports: Hx Abdominal Surgery - HERNIA REPAIR, Hx Adenoidectomy, Hx Orthopedic Surgery - left wrist, Hx Tonsillectomy, Hx Tubal Ligation. Denies: Hx Mastectomy, Hx Open Heart Surgery, Hx Pacemaker - Immunizations Hx Diphtheria, Pertussis, Tetanus Vaccination: Yes Hx Pneumococcal Vaccination: 06/26/15 Review of Systems - Review of Systems Constitutional: denies: Chills, Fever Cardiovascular: denies: Chest pain, Palpitations Respiratory: denies: Cough, Short of breath -: Yes All other systems reviewed and negative Physical Exam - Vital signs Vitals: Temp Pulse Resp BP Pulse Ox 98.2 F 108 H 18 155/105 H 98 06/08/20 10:24 06/08/20 10:24 06/08/20 10:24 06/08/20 10:24 06/08/20 10:24 Interpretation: Tachycardic - General General appearance: Appears well, Alert - HEENT Head: Normocephalic, Atraumatic Eyes: Normal Pupils: PERRL - Respiratory Respiratory status: No respiratory distress Chest status: Nontender Breath sounds: Normal Chest palpation: Normal - Cardiovascular Rhythm: Regular Heart sounds: Normal auscultation Murmur: No - Abdominal Inspection: Normal Distension: No distension Bowel sounds: Normal Tenderness: Nontender Organomegaly: No organomegaly - Back Back: Normal, Nontender - Extremities General upper extremity: Normal inspection, Nontender, Normal color, Normal ROM, Normal temperature General lower extremity: Normal inspection, Nontender, Normal color, Normal ROM, Normal temperature, Normal weight bearing. No: Wilbert's sign - Neurological Neuro grossly intact: Yes Cognition: Confused Orientation: Disoriented to time [place] Coma Scale Eye Opening: Spontaneous [place] Coma Scale Verbal: Confused [place] Coma Scale Motor: Obeys Commands [place] Coma Scale Total: 14 Speech: Expressive aphasia Motor strength normal: LUE, RUE, LLE, RLE Sensory: Normal - Psychological Associated symptoms: Normal affect, Normal mood - Skin Skin Temperature: Warm Skin Moisture: Dry Skin Color: Normal Course - Re-evaluation Re-evalutation: 06/08/20 13:24 Patient presents with confusion and some expressive aphasia. She has a stroke scale of 2. She is outside of the window for any type of intervention. I have called and discussed the patient with the hospitalist will see the patient in consultation. - Vital Signs Vital signs: Temp Pulse Resp BP Pulse Ox 98.2 F 108 H 18 155/105 H 100 06/08/20 10:24 06/08/20 10:24 06/08/20 10:24 06/08/20 10:24 06/08/20 11:00 - Laboratory Results Result Diagrams: 06/08/20 11:31 06/08/20 11:31 Laboratory Results Interpreted: 06/08/20 06/08/20 06/08/20 11:31 11:31 12:13 MCV 102 H MCH 34.6 H RDW 19.2 H Plt Count 128 L [place] % (Auto) 13.3 H Potassium 3.4 L Glucose 121 H Total Bilirubin 1.4 H Urine Ketones TRACE H Urine Blood SMALL H Ur Leukocyte Esterase SMALL H Acetaminophen < 10 L Critical Laboratory Results Reviewed: No Critical Results - Radiology Results Critical Radiology Results Reviewed: No Critical Results Discharge - Discharge Clinical Impression: Expressive aphasia, Confusion Condition: Fair Disposition: ADMITTED INPATIENT Unit Admitted: Medical Floor Referrals: HELGA ARSHAD MD [Primary Care Provider] - Follow up as needed
--- NOTE | 2020-06-08 16:13 | RADIOLOGY REPORT (SQ) ---
EXAM DESCRIPTION: MRI HEAD WITHOUT IMAGES COMPLETED DATE/TIME: 06/08/2020 3:44 pm REASON FOR STUDY: TIA COMPARISON: None. TECHNIQUE: Multiplanar imaging includes non-contrasted T1, T2, FLAIR, and diffusion with ADC map seq uences. Images stored on PACS. LIMITATIONS: None. FINDINGS: ANATOMY: No anomalies. Normal vascular flow voids. Pituitary fossa normal. CSF SPACES: Normal in size and contour. No hemorrhage. CEREBRUM: Sulci and gyri normal in size and contour. There are areas of increased white matter signa l on FLAIR imaging. No evidence of hemorrhage, mass, or extraaxial fluid collection. POSTERIOR FOSSA: No signal alteration. No hemorrhage. No edema, masses or mass effect. Internal megan tory canals, cerebello-pontine angles, mastoids normal. DIFFUSION IMAGING: Negative for acute or sub-acute infarction. ORBITS: No masses. Globes normal. PARANASAL SINUSES: No fluid levels. Mucosa normal. OTHER: No other significant finding. IMPRESSION: Chronic microvascular ischemia with no acute intracranial imaging finding. EVIDENCE OF ACUTE STROKE: NO. TECHNICAL DOCUMENTATION: JOB ID: [id number] [employer]- All Rights Reserved Reading location - IP/workstation name: [email or web address]
--- NOTE | 2020-06-08 16:15 | RADIOLOGY REPORT (SQ) ---
EXAM DESCRIPTION: MRA HEAD WITHOUT IMAGES COMPLETED DATE/TIME: 06/08/2020 3:44 pm REASON FOR STUDY: TIA COMPARISON: None. TECHNIQUE: Axial 3-D [id number] acquisition imaging performed through the brain in the area of t he native of [place]. Images reformatted using 3-D MIPS. LIMITATIONS: None. FINDINGS: SOURCE IMAGES: No unexpected findings on source images. No large masses. 3-D MIP: No aneurysm. No occlusions. No significant stenosis. OTHER: No other significant finding. IMPRESSION: NORMAL MRA OF THE [place] OF [place]. TECHNICAL DOCUMENTATION: JOB ID: [id number] 2010 [employer]- All Rights Reserved Reading location - IP/workstation name: [email or web address]
--- NOTE | 2020-06-08 17:47 | PDOC CONSULTATION ---
Consultation-Blank Consultation: Behavioral Health Consult: Expressive Aphasia due to Anxiety Patient is a 75 year old female who presented to the emergency department 06/08/2020 via privately owned vehicle for concerns she was having a Transient Ischemic Attack (TIA) as she has had them in the past, with reported most recent June 2019, and a Cerebral Vascular Incident noted from 07/08/2016. Patient has a history of migraines, hypothyroidism (Levothyroxine Sodium, 75MCG daily), hypertension, and chronic back pain (Percocet, Flexeril). Her pharmacy is [facility] and Primary Care is Dr. Isidro Agrawal with [facility]. Psychiatric medications prescribed include Ambien 10MG at night for the past year and Zoloft 50MG daily since at least 08/2019. Spoke to Attending Hospitalist at 1653. She noted patient reported a history of Depression and Anxiety, saw Dr. Hoffman, and unclear if she is taking medications as prescribed. She noted no neurological deficits with normal neurological exam. She stated patient has aphasia that seems to have started this morning prior to arrival.. She described it as patient will start to talk, stop, have trouble saying what she's trying to get out, and then start again all in the middle of a sentence. Chart review conducted at 1659. 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 Note dementia cannot be diagnosed just from a Head CT or MRI but there is language. No acute findings to suggest any recent infarct. 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 This was 7 years ago so possibility of worsening symptoms given this is a disease that worsens with age progression. [facility], she started having falls in 2012, and most recent fall was 03/22/2020. She is typically accompanied by female friend which was the case today. Patient presented confused trying to talk on her cell phone and nobody was there, as well as saying EMS brought her when female friend noted patient drove herself. Patient also initially told medical staff she took more of her Percocet and Ambien due to pain, then later said it had been a week since she took either, and noted poor sleep as a result. Patient resides alone per previous visits. There appears to be a Urinary Tract Infection but minimal if so and asymptomatic (per Hospitalist no reported symptoms, no fever, WBC is normal). At 1714 tried calling her emergency contact Ankita Fernández ([phone]). A female answered and stated she was not Ankita Fernández. Clinical Presentation: Expressive Aphasia She reported taking more Percocet and Ambien due to the pain, then stated she had not had either in a week and reported poor sleep as a result Concerns for asymptomatic Urinary Tract Infection Checking Thyroid Levels Concerns for Neurodegenerative processes. Medication recommendations made by the psychiatric medication provider, Dr. Viv PEREZ., includes: Discontinue Zoloft 50MG daily for depression (if anxiety is cause of aphasia Zoloft will likely make it worse) Discontinue Ambien 10MG at night for sleep (hypnogogic effects are common, can be more severe in elderly population) Add Depakote DR (delayed release) 250MG twice a day for mood stabilization- DR better if not metabolizing well (Total Bilirubin was 1.4 H) Add Buspar 5MG twice a day for anxiety/calming effect/depression/sleep Impression/Plan: Conducted thorough chart review today and spoke to/coordinated with Attending Hospitalist. Will see patient face to face by 1030 tomorrow. Have offered medication adjustments to better serve patient's symptoms while taking into consideration concerns for neurodegenerative processes (chronic versus acute issue). Also want to ensure thyroid levels are within range. Patient may benefit from in home health or other options since she resides alone (particularly related to her medications and administration). Consulted with Dr. Mcarthur regarding the management and care of patient.
[2020-06-08] MEDS: NORMAL SALINE 1000 ML 1,000 ML IV PRN (18:30)
[2020-06-08] MEDS: METOPROLOL TARTRATE 25 MG TABLET PO SCH (21:04)
[2020-06-08] MEDS: BUSPIRONE HCL 10 MG TABLET PO SCH (21:05)
[2020-06-08] MEDS: DIVALPROEX SODIUM 250 MG TABLET.DR PO SCH (21:05)
[2020-06-08] MEDS: OXYCODONE-ACETAMINOPHEN 5-325 MG TABLET PO PRN (21:05)
[2020-06-08] MEDS: ATORVASTATIN CALCIUM 40 MG TABLET PO SCH (21:05)
--- NOTE | 2020-06-08 21:21 | PDOC H&P ---
History of Present Illness Admission Date/PCP: 06/08/20 13:36 HELGA AGRAWAL MD Patient complains of: difficulty speaking History of Present Illness: ANNAMARIA BRASHER is a 75 year old female, hypothyroidism, previous stroke, chronic lymphedema, anxiety, frequent fall who came in the ED today due to difficulty speaking. Patient has expressive aphasia and has difficulty speaking and expressing herself therefore history is limited. According to what she told me symptoms started at 1015 this morning when she felt confused and could not speak properly and has trouble word finding. Per ED notes last well-known time was 6 PM yesterday. She also complains of headache which she said is similar to her migraine attacks. She is on Percocet for her migraine attacks which is unusual for. She said she was on Imitrex before but is unable to tell me if she still taking it. She denies any fever, chest pain, shortness of breath, recent illness. She denies any urinary symptoms like dysuria, hematuria. she has no complaints of focal motor weakness. She also admits that she has been having trouble sleeping the past few weeks and also stated that her inability to speak has happened before mostly when she is stressed and anxious. She does not see a migraine doctor. She mentioned that she saw a therapist named Yasmin for her anxiety. She follows with Dr. Agrawal. In the ED blood pressure was 155/79, heart rate 56, respiratory rate 18, O2 sat 100% on room air, afebrile. CBC showed a WBC count of 6.1, hemoglobin of 13.8, platelet count of 128. CMP showed mild hypokalemia 3.4, normal creatinine. CT Of the head was negative. When I spoke to her she did have some difficulty initiating a sentence, then she would be able to talk normally for a few minutes , and then just suddenly stopped talking again. When I asked her questions there would be times when the answer would be not related to what I asked her. But she does not have any slurring of her speech. Cranial nerve exam was unremarkable. Motor exam was unremarkable as well. I have asked psych to evaluate her. MRI of the brain showed chronic microvascular ischemic changes, MRA was negative. I use a stroke order set and I ordered the usual work-up for TIA. Past Medical History Cardiac Medical History: Reports: Hyperlipidema, Hypertension Denies: Myocardial Infarction Pulmonary Medical History: Reports: Bronchitis, Pneumonia Denies: Asthma Neurological Medical History: Reports: Migraine Denies: Seizures Endocrine Medical History: Reports: Hypothyroidism GI Medical History: Reports: Gastroesophageal Reflux Disease, Hiatal Hernia - REPAIRED Denies: Hepatitis Psychiatric Medical History: Reports: Depression, General Anxiety Disorder Hematology: Denies: Anemia, Sickle Cell Disease Past Surgical History Past Surgical History: Reports: Adenoidectomy, Orthopedic Surgery - left wrist, Tonsillectomy, Tubal Ligation Denies: Amputation, Mastectomy, Pacemaker Social History Lives with: Alone Smoking Status: Never Smoker Frequency of Alcohol Use: None Hx Recreational Drug Use: No Drugs: None Hx Prescription Drug Abuse: No - Advance Directive Resuscitation Status: Full Code Surrogate healthcare decision maker:: CODE STATUS discussed with the patient and she stated that she does not want to . When I asked her specifically if she wanted to be full code she again developed expressive aphasia and was unable to speak. CODE STATUS according to what she said seems to be full code but would encourage to clarify this with her. She also named her friend Ankita nobles as her healthcare power of workers compensation attorney. Family History Family History: Reviewed & Not Pertinent, CVA - Father and mother Parental Family History Reviewed: Yes Children Family History Reviewed: Yes Sibling(s) Family History Reviewed.: Yes Medication/Allergy Home Medications: Lansoprazole 30 mg PO Q6AM 07/08/16 Zolpidem Tartrate [Ambien 5 mg Tablet] 10 mg PO QHS 07/09/16 Alendronate Sodium 70 mg PO MO@1000 06/08/20 Atorvastatin Calcium [Lipitor 40 mg Tablet] 40 mg PO QHS 06/08/20 Cyclobenzaprine HCl [Flexeril 10 mg Tablet] 5 mg PO DAILYP PRN 06/08/20 Ergocalciferol (Vitamin D2) [Drisdol 50,000 unit (1.25MG) Capsule] 50,000 unit PO MO@1000 06/08/20 Levothyroxine Sodium [Synthroid 0.075 mg Tablet] 0.075 mg PO Q6AM 06/08/20 Lisinopril [Prinivil] 20 mg PO DAILY 06/08/20 Metoprolol Tartrate [Lopressor 25 mg Tablet] 25 mg PO Q12 06/08/20 Oxycodone HCl/Acetaminophen [Percocet 5-325 mg Tablet] 1 tab PO Q6HP PRN 06/08/20 Promethazine HCl [Phenergan 25 mg Tablet] 12.5 mg PO Q6HP PRN 06/08/20 Sertraline HCl [Zoloft 50 mg Tablet] 50 mg PO DAILY 06/08/20 Allergies/Adverse Reactions: sumatriptan [From Imitrex] Allergy (Severe, Verified 09/24/16 18:05) ketorolac tromethamine [From Toradol] Allergy (Intermediate, Verified 09/24/16 18:05) itching, hives Sulfa (Sulfonamide Antibiotics) Allergy (Intermediate, Verified 09/24/16 18:05) hives, anaphylaxis prochlorperazine maleate [From Compazine] Allergy (Verified 09/24/16 18:05) Review of Systems Constitutional: PRESENT: fatigue Eyes: ABSENT: visual disturbances Ears: ABSENT: hearing changes Nose, Mouth, and Throat: PRESENT: headache(s) Cardiovascular: PRESENT: edema - Chronic lymphedema. ABSENT: chest pain Gastrointestinal: ABSENT: melena, nausea, vomiting Musculoskeletal: PRESENT: back pain Integumentary: ABSENT: diaphoresis, erythema Neurological: PRESENT: frequent falls Psychiatric: PRESENT: anxiety, depression. ABSENT: hallucinations, homidical ideation, suicidal ideation Physical Exam Vital Signs: Temp Pulse Resp BP Pulse Ox 97.7 F 72 16 155/79 H 98 06/08/20 16:39 06/08/20 16:39 06/08/20 16:39 06/08/20 16:39 06/08/20 16:39 Intake & Output 06/07/20 06/08/20 06/09/20 06:59 06:59 06:59 Weight 77.6 kg General appearance: PRESENT: no acute distress, cooperative, thin Head exam: PRESENT: atraumatic, normocephalic Eye exam: PRESENT: EOMI, PERRLA Mouth exam: PRESENT: moist Neck exam: PRESENT: full ROM Cardiovascular exam: PRESENT: RRR, +S1, +S2 Pulses: PRESENT: +2 pedal pulses bilateral GI/Abdominal exam: PRESENT: normal bowel sounds, soft. ABSENT: rebound, tenderness Extremities exam: PRESENT: other - Chronic lymphedema Musculoskeletal exam: PRESENT: full ROM Neurological exam: PRESENT: alert, awake, oriented to person, oriented to place, oriented to time, CN II-XII grossly intact, aphasic - Expressive aphasia Psychiatric exam: PRESENT: normal mood Skin exam: PRESENT: normal color Results Laboratory Results: 06/08/20 11:31 06/08/20 11:31 06/08/20 06/08/20 06/08/20 11:31 11:31 11:31 WBC 6.1 RBC 3.98 Hgb 13.8 Hct 40.6 MCV 102 H MCH 34.6 H MCHC 33.9 RDW 19.2 H Plt Count 128 L Seg Neutrophils % 63.1 Sodium 141.7 Potassium 3.4 L Chloride 105 Carbon Dioxide 24 Anion Gap 13 BUN 10 Creatinine 0.68 Est GFR ( Amer) > 60 Glucose 121 H Calcium 9.4 Total Bilirubin 1.4 H AST 27 Alkaline Phosphatase 101 Total Protein 7.9 Albumin 4.6 TSH 3.16 Urine Color Urine Appearance Urine pH Ur Specific [place] Urine Protein Urine Glucose (UA) Urine Ketones Urine Blood Urine Nitrite Ur Leukocyte Esterase Urine WBC (Auto) Urine RBC (Auto) 06/08/20 12:13 WBC RBC Hgb Hct MCV MCH MCHC RDW Plt Count Seg Neutrophils % Sodium Potassium Chloride Carbon Dioxide Anion Gap BUN Creatinine Est GFR ( Amer) Glucose Calcium Total Bilirubin AST Alkaline Phosphatase Total Protein Albumin TSH Urine Color YELLOW Urine Appearance SLIGHTLY-CLOUDY Urine pH 7.0 Ur Specific [place] 1.004 Urine Protein NEGATIVE Urine Glucose (UA) NEGATIVE Urine Ketones TRACE H Urine Blood SMALL H Urine Nitrite NEGATIVE Ur Leukocyte Esterase SMALL H Urine WBC (Auto) 4 Urine RBC (Auto) 2 Impressions: Brain MRI with MRA 06/08/20 00:00 IMPRESSION: NORMAL MRA OF THE [place] OF [place]. Head MRI 06/08/20 00:00 IMPRESSION: Chronic microvascular ischemia with no acute intracranial imaging finding. EVIDENCE OF ACUTE STROKE: NO. Head CT 06/08/20 10:34 IMPRESSION: No acute intracranial abnormality. EVIDENCE OF ACUTE STROKE: NO. Assessment and Plan - Diagnosis (1) TIA (transient ischemic attack) Is this a current diagnosis for this admission?: Yes Plan: -Patient has a history of previous stroke although unclear what deficit she had or if there is any residual. -Admit due to expressive aphasia -Cranial nerve exam grossly normal NIH score less than 6 does not qualify for TPA. -CT head negative -MRI showed chronic microvascular ischemia with no acute intracranial imaging finding. -MRA normal. -Stroke Order set used -Patient was given aspirin in the ED -PT, OT, speech eval (2) Expressive aphasia Is this a current diagnosis for this admission?: Yes Plan: -Patient claims that this is happened before and mostly when she is anxious and stressed. -MRI showed chronic microvascular ischemic changes. -speech Therapy consulted -There might be a psychiatric component to her expressive aphasia. Doubt if her aphasia is secondary to UTI since she does not complain of any fever, dysuria and her white count is completely normal. This can also be a part of her aura for her migraine. -Psych consulted (3) Anxiety Is this a current diagnosis for this admission?: Yes Plan: -Patient admits to having anxiety -on Zoloft -Psych consulted (4) Hyperlipidemia Qualifiers: Hyperlipidemia type: unspecified Qualified Code(s): E78.5 - Hyperlipidemia, unspecified Is this a current diagnosis for this admission?: Yes Plan: -Statin resumed (5) Hypertension Qualifiers: Hypertension type: essential hypertension Qualified Code(s): I10 - Essential (primary) hypertension Is this a current diagnosis for this admission?: Yes Plan: -Metoprolol resumed (6) Hypothyroid Qualifiers: Hypothyroidism type: unspecified Qualified Code(s): E03.9 - Hypothyroidism, unspecified Is this a current diagnosis for this admission?: Yes Plan: Levothyroxine resumed - Time Time Spent with patient: 25-34 minutes Medications reviewed and adjusted accordingly: Yes Anticipated Discharge Disposition: Home, Self Care Anticipated Discharge Timeframe: tbd
--- NOTE | 2020-06-08 22:18 | EKG REPORT ---
SEVERITY:- OTHERWISE NORMAL ECG - SINUS RHYTHM ATRIAL PREMATURE COMPLEX : Confirmed by: Bessie De Los Santos MD 08-Jun-2020 22:17:53
[2020-06-09] MEDS ORDERED: ONDANSETRON HCL INJ/PF 4 MG/2 ML SDV ONE (01:40)
[2020-06-09] MEDS: ONDANSETRON HCL INJ/PF 4 MG/2 ML SDV IV PRN ×2 (01:45→14:56)
[2020-06-09] MEDS: OXYCODONE-ACETAMINOPHEN 5-325 MG TABLET PO PRN ×2 (04:25→11:18)
[2020-06-09] MEDS: LEVOTHYROXINE SODIUM 0.075 MG TABLET PO SCH (06:10)
[2020-06-09 06:37] LABS: ABSOLUTE EOSINOPHILS # (AUTO) 0.1 10^3/uL (0.0-0.6); ABSOLUTE LYMPHOCYTES (AUTO) 1.9 10^3/uL (0.5-4.7); ABSOLUTE MONOCYTES (AUTO) 1.3 10^3/uL (0.1-1.4); ABSOLUTE NEUT (AUTO) 3.5 10^3/uL (1.7-8.2); BASOPHILS % (AUTO) 0.2 % (0-2); EOSINOPHILS % (AUTO) 1.9 % (0-6); HEMATOCRIT 39.3 % (36.0-47.0); LYMPHOCYTES % (AUTO) 28.1 % (13-45); MEAN CORPUSCULAR HGB CONC 33.1 g/dL (32.0-36.0); MEAN CORPUSCULAR VOLUME 103 fl (80-97); MONOCYTES % (AUTO) 18.4 % (3-13); PLATELET COUNT 141 10^3/uL (150-450); RED BLOOD COUNT 3.83 10^6/uL (3.72-5.28); RED CELL DISTRIBUTION WIDTH 19.1 % (11.5-14.0); SEGMENTED NEUTROPHILS % (AUTO) 51.4 % (42-78); TOTAL CELLS COUNTED % (AUTO) 100 %; WHITE BLOOD COUNT 6.9 10^3/uL (4.0-10.5)
[2020-06-09 07:01] LABS: TRIGLYCERIDES 101 mg/dL (<150)
[2020-06-09 07:13] LABS: DIRECT LDL 88 mg/dL (<100)
[2020-06-09] MEDS ORDERED: SERTRALINE HCL 50 MG TABLET PO SCH (10:00)
[2020-06-09] MEDS ORDERED: (PENDING PHARMACY ID) (Lisinopril [Prinivil] 20 MG Tablet) PO SCH (10:00)
[2020-06-09] MEDS: ENOXAPARIN SODIUM INJ 40 MG/0.4 ML DISP.SYRIN SUBCUT SCH (10:58)
[2020-06-09] MEDS: BUSPIRONE HCL 10 MG TABLET PO SCH ×2 (11:11→21:15)
[2020-06-09] MEDS: METOPROLOL TARTRATE 25 MG TABLET PO SCH ×2 (11:11→21:15)
[2020-06-09] MEDS: LISINOPRIL 10 MG TABLET PO SCH (11:12)
[2020-06-09] MEDS: NORMAL SALINE 1000 ML 1,000 ML IV PRN (11:13)
[2020-06-09] MEDS: DIVALPROEX SODIUM 250 MG TABLET.DR PO SCH ×2 (11:18→21:15)
--- NOTE | 2020-06-09 12:48 | PDOC PROGRESS REPORT ---
Subjective Date:: 06/09/20 Subjective:: This morning, patient still having momentary episodes where she stops talking midsentence and starts saying 'HmmHmm' for a few seconds and then resumes talking. I have tried to call the number on file for contacts Ankita but this phone number does not belong to her. We will try to obtain another contact so we can get more history. She ambulated pretty decently with me during e ncounter. Her speech is rather tangential on occasion and sometimes does not quite respond to what I am asking her. Most of the time she is able to answer appropriately but ability to convey her message fluently is cut short by these episodes of nonresponse. Reason For Visit: TIA, ACUTE ANXIETY Physical Exam Vital Signs: Temp Pulse Resp BP Pulse Ox 97.6 F 69 18 165/88 H 100 06/09/20 11:41 06/09/20 11:41 06/09/20 08:00 06/09/20 11:41 06/09/20 11:41 Intake & Output 06/08/20 06/09/20 06/10/20 06:59 06:59 06:59 Intake Total 1210 Balance 1210 Weight 77.6 kg General appearance: PRESENT: no acute distress, cooperative Neck exam: ABSENT: JVD Respiratory exam: PRESENT: clear to auscultation rox[place], symmetrical, unlabored. ABSENT: tachypnea, wheezes Cardiovascular exam: PRESENT: RRR, +S1, +S2. ABSENT: tachycardia GI/Abdominal exam: PRESENT: soft. ABSENT: rebound, rigid, tenderness Neurological exam: PRESENT: alert, awake, oriented to person, oriented to place, oriented to time, abnormal gait - Slow gait, other - Momentarily stares blankly while stating 'hmmmhmm' repeatedly for a few seconds then resumes talking.. ABSENT: motor sensory deficit Psychiatric exam: PRESENT: anxious - mild, unusual affect. ABSENT: agitated, appropriate affect, homicidal ideation, manic, suicidal ideation Focused psych exam: ABSENT: pressured speech Results Laboratory Results: 06/09/20 06:15 06/08/20 11:31 06/08/20 06/08/20 06/09/20 11:31 12:13 06:15 WBC 6.9 RBC 3.83 Hgb 13.0 Hct 39.3 MCV 103 H MCH 34.0 H MCHC 33.1 RDW 19.1 H Plt Count 141 L Seg Neutrophils % 51.4 Triglycerides Cholesterol LDL Cholesterol Direct VLDL Cholesterol HDL Cholesterol TSH 3.16 Urine Color YELLOW Urine Appearance SLIGHTLY-CLOUDY Urine pH 7.0 Ur Specific [place] 1.004 Urine Protein NEGATIVE Urine Glucose (UA) NEGATIVE Urine Ketones TRACE H Urine Blood SMALL H Urine Nitrite NEGATIVE Ur Leukocyte Esterase SMALL H Urine WBC (Auto) 4 Urine RBC (Auto) 2 06/09/20 06:15 WBC RBC Hgb Hct MCV MCH MCHC RDW Plt Count Seg Neutrophils % Triglycerides 101 Cholesterol 162.60 LDL Cholesterol Direct 88 VLDL Cholesterol 20.0 HDL Cholesterol 57 TSH Urine Color Urine Appearance Urine pH Ur Specific [place] Urine Protein Urine Glucose (UA) Urine Ketones Urine Blood Urine Nitrite Ur Leukocyte Esterase Urine WBC (Auto) Urine RBC (Auto) Impressions: Brain MRI with MRA 06/08/20 00:00 IMPRESSION: NORMAL MRA OF THE [place] OF [place]. Head MRI 06/08/20 00:00 IMPRESSION: Chronic microvascular ischemia with no acute intracranial imaging f inding. EVIDENCE OF ACUTE STROKE: NO. Head CT 06/08/20 10:34 IMPRESSION: No acute intracranial abnormality. EVIDENCE OF ACUTE STROKE: NO. Assessment and Plan - Diagnosis (1) Acute metabolic encephalopathy Is this a current diagnosis for this admission?: Yes (2) Expressive aphasia Is this a current diagnosis for this admission?: Yes (3) Hypertension Qualifiers: Hypertension type: essential hypertension Qualified Code(s): I10 - Essential (primary) hypertension Is this a current diagnosis for this admission?: Yes (4) Hypothyroid Qualifiers: Hypothyroidism type: unspecified Qualified Code(s): E03.9 - Hypothyroidism, unspecified Is this a current diagnosis for this admission?: Yes (5) Anxiety Is this a current diagnosis for this admission?: Yes - Plan Summary Summary: Patient's neurological deficits involves her blankly staring without being able to formulate any sentences for a few seconds occurring midsentence she a few times a minute. TIA is unlikely as her symptoms are still ongoing. Stroke has been ruled out with negative MRI and normal MRA. We will hold off on further stroke work-up as this is unlikely. Possibly could be a conversion disorder or atypical partial seizure. Discussed with psychiatry who are concerned for neurodegenerative process but will fully evaluate patient today. UTI unlikely to be playing a role here. Hypothyroid unlikely as TSH is normal. Telemetry reviewed and unremarkable We will get an EEG done. Unfortunately video game technician is not available today but will be able to do it tomorrow. Continue antihypertensive medications. Patient ambulated decently with me. Have tried to contact patient's emergency contact Ankita but this phone number does not belong to her so we are working to get hold of a family member or friend. - Time Time Spent with patient: 25-34 minutes Anticipated Discharge Disposition: Home, Self Care Anticipated Discharge Timeframe: within 24 hours
--- NOTE | 2020-06-09 16:02 | RADIOLOGY REPORT (SQ) ---
EXAM DESCRIPTION: CAROTID DOPPLER IMAGES COMPLETED DATE/TIME: 06/09/2020 2:34 pm REASON FOR STUDY: TIA G45.9 TRANSIENT CEREBRAL ISCHEMIC ATTACK, UNSPECIFIED E08.65 DIABETES DUE TO UNDERLYING CONDITION W HYPERGLYCEMIA E03.9 HYPOTHYROIDISM, UNSPECIFIED COMPARISON: 11/27/2019 TECHNIQUE: Grayscale ultrasound, Doppler velocity and spectra, and color Doppler images acquired of the extra-cranial carotid and vertebral arteries. Images stored on PACS. LIMITATIONS: None. FINDINGS: RIGHT CAROTID CCA Velocities: Within normal limits. ICA Velocities Peak systolic 130 cm/s. End diastolic 45 cm/s. Proximal ICA/CCA peak systolic ratio 1.3. Tortuous ICA. LEFT CAROTID CCA Velocities: Within normal limits. . ICA Velocities Peak systolic 100 cm/s. End diastolic 29 cm/s. Proximal ICA/CCA peak systolic ratio 0.7. Tortuous ICA VERTEBRAL ARTERIES: Antegrade flow. Normal waveforms. SUBCLAVIAN ARTERIES: No finding. OTHER: No other significant finding. IMPRESSION: Tortuous vessels. No hemodynamically significant stenosis. COMMENT: Quality ID #[id number]: Velocity criteria are extrapolated from the diameter data as defined by t he Society of Radiologists in Ultrasound Consensus Conference. Radiology 2003: 229; 340-346. TECHNICAL DOCUMENTATION: JOB ID: [id number] 2010 [employer]- All Rights Reserved Reading location - IP/workstation name: [email or web address]
--- NOTE | 2020-06-09 17:33 | PDOC CONSULTATION ---
Consultation-Blank Consultation: Behavioral Health Consult: Expressive Aphasia due to Anxiety. Re evaluation. Yesterday was only chart review and discussion with Attending Hospitalist. Today: Chart review at 1139 and ongoing Discussion with Attending Hospitalist from [phone] Face to face evaluation with patient from [id number], also obtained collateral f rom Attending Nurse Emergency Contact Collateral from [phone] Patient is a 75 year old female who presented to the emergency department 06/08/2020 for concerns she was having a Transient Ischemic Attack (TIA) as she has had them in the past, displays aphasia, and medical issues have been ruled out so Attending Hospitalist thinking is is psychiatric. Saw patient in person today. Chart review conducted at 1139. Thyroid level was 3.16 within range. Medications were adjusted last evening as recommended (Discontinue home medications of Zoloft and Ambien, Add Depakote DR 250MG twice a day and Buspar 5MG twice a day). So this morning makes the second dosing of new regimen. Speech pathology is involved, they tried to visit this morning, patient was having a procedure so they were to come back later. When having Code Status discussion yesterday patient stated she doesn't want to and when asked about being a FULL Code she displayed expressive aphasia. Medical admittance was for TIA, Expressive Aphasia, Anxiety, Hyperlipidemia, Hypertension, and Hypothyroid. Patient told medical staff Karo Fernández was her Healthcare Power of Perianesthesia Nurse (POA). Spoke to Attending Hospitalist from [phone]. He reported patient will be kept until tomorrow. He noted no concerns for TIA, Stroke, UTI, or Thyroid issues. He reported he would be doing an EEG to see if there was any seizure activity (apparently this will be conducted tomorrow 06/10/2020). He described patient's expression as "talking once minute, midway through she stops abruptly, she will be quiet for several seconds, then continue talking." He stated he would not even call it aphasia. He commented on Conversion Disorder. Today patient responded to her name and tried to interact/engage. When asked about her seeing Dr. Hoffman and at what agency patient stated "Oh no I knew him personally as a friend." She confirmed most of her medications are prescribed by her Primary Care Dr. Agrawal. She also noted she goes to [facility] for chronic lower back pain. She commented "I thought I had an allergic reaction to the medications last night." When asked what reaction she took some time then mentioned "anxiety." Psychoeducated her that anxiety may be from thinking she was having a stroke and how she felt, then having to be in the hospital. As she was talking she would abruptly stop, say mm hmm, then not be able to finish her sentence. She stated "I have aphasia bare with me." She also reported she knew what she was thinking but was unable to get it out. Discussed psychiatric medications and when talking about Ambien patient acknowledged "I got addicted to it, I had been on it 20 years, it was stopped but I asked Dr. Agrawal to restart it." She stated she also "demanded to be put on an antidepr essant." She identified "I get confused" and stated even before the strokes. She stated she had 2 strokes and was "scared this was another one." She reported having aphasia one other time in [place]. When asked how old she was then she was confused and said "I was on it 20 years" later known to be referencing how long she was on the Ambien. She confirmed she had not taken her Percocet or Ambien in a week and then took extra (said 10, could not get if that was MG, total number of pills, she denied taking 5 pills of each) to address pain prior to coming to the emergency department. She reported "I have insomnia so bad, often I'd go 5-6 days without sleep." Patient reported she has a container for her medications, she gets her own medications ready, and has them by AM and PM. Patient reported "I get dizzy when I stand." She admitted to one previous mental health hospitalization many years ago somewhere in [place]. The TV was on showing nature scene of water running over rocks, patient said "it looks like a bunch of slater." Possibly there were flower scenes previously but not at that moment. Tried to get patient to unlock her cell phone to provide correct contact number for Karo Fernández. She held the phone, was easily distracted, and unable to recall the pass code. Patient was alert and oriented to self, person, place, and situation. Mood was euthymic with congruent affect. She denied current suicidal and homicidal ideation. Patient did not appear to be responding to internal stimuli as evidenced by fair eye contact and trying to answer questions appropriately when addressed. Thought processes were tangential and a bit disorganized. Conversational speech was within normal limits for tone however she would stop mid sentence and not be able to finish, she would get frustrated. Intellectual abilities are estimated to be average. Insight, judgment and impulse control were fair as evidenced by trying to engage and be present. Attending Nurse noted when patient had aphasia with her she would blink her eyes fast. She also noted she was able to obtain two other phone numbers for Karo Fernández ([phone], ). She reported she provided these to the Attending Hospitalist. Attending Nurse noted patient was unable to recall her phone pass code to even get into it. At 1631 tried calling emergency contact Karo Fernández ([phone], cell phone per patient). Got voice mail. Recording said you have reached Karo. Left a general voice mail with call back information. Emergency Contact called back. Spoke to her from [phone] via telephone. She confirmed she is patient's Healthcare POA. She identified patient has had 2 TIA's previously, one was 3 years ago (described patient as talking saying um...um...um and I see you), and one was earlier this year while she was visiting family in [place] (did not go to hospital for this one, described as similar to current presentation but would either stop talking or talk super fast which lasted 4-5 days). She reported the only hospitalization she knows patient had "was when she checked herself in to [facility] for 3 weeks after getting hooked on the Percocet." She reported patient is "depressed, they have talked about it and patient has mentioned she's lost everybody in her life to . She identified patient "lives in the past/dwells on the past, talks about her /parents/sister often." She stated patient started seeing a doctor in [place] for her back, had one appointment recently, where the doctor noted she has weak legs and feet from the back pain. She also confirmed patient sees a neurologist. She stated patient went to a local store 1-2 weeks ago, bought a bag of CBD pills, was told by person working at the store not to take more than 4 a day, said she only took up to 2, was taking it for pain, and said it did not help. She noted patient still has some left. She stated patient had talked about wanting to travel but due to back pain says she can't due that or other things which causes her anxiety. Emergency contact described patient as "very smart, loves history." She noted she spoke to patient last evening and on the phone today: both times patient would start talking then just fade away. Discussed and psychoeducated on the likely need for assistance with medications and administration which she said she understood and could be part of. 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 Recommendation to take a normalizing stance to her anxiety and worries in a manner of trying to process everything (that way she doesn't feel like she's the only one going through it). Patient does have Healthcare Power of Perianesthesia Nurse who is listed as her emergency contact. Obtained collateral and discussed concerns, follow up (Primary Care, Pain Management, Neurology), and for all providers to be aware of all other services and medications patient is being prescribed. Suggested patient not utilize CBD without consulting with her provider(s) first and having some sort of oversight. Consulted with Dr. Mcarthur regarding the management and care of patient. Attending Hospitalist made aware of recommendations and informed via telephone (spoke to him 3 times today 06/09/2020 via telephone).
[2020-06-09] MEDS: ATORVASTATIN CALCIUM 40 MG TABLET PO SCH (21:15)
--- NOTE | 2020-06-09 22:58 | XCELERA REPORT ---
[address] [address] Transthoracic Echocardiogram Report Name: ANNAMARIA BRASHER Age: 75 yrs Gender: Female : 1945 Patient Status: Inpatient Patient Location: [address] [place], [place] [address]A Study Date: 06/09/2020 09:48 AM Height: 63 in Weight: 171 lb BSA: 1.8 m2 Procedure: A two-dimensional transthoracic echocardiogram with color flow and Doppler was performed. Study Quality: Fair. Reason For Study: TIA History: TIA. Ordering Physician: DIXIE HAMILTON Performed By: Nel Tsai Interpretation Summary There is no obvious cardiac source of embolus noted on this transthoracic echocardiogram. Follow-up with a MARY is suggested if cardiac source is still suspected. The left ventricle is normal in size. There is normal left ventricular wall thickness. LV EF is 65% Left ventricular systolic function is normal. Doppler measurements suggest impaired left ventricular relaxation, which is associated with grade I/IV or mild diastolic dysfunction The left ventricular wall motion is normal. There is no thrombus. No ASD,VSD,or PFO seen. The right ventricle is normal in size and function. The right atrium is normal. The left atrial size is normal. There is no evidence of mitral valve prolapse. There is no vegetation seen on the mitral valve. There is no mitral valve stenosis. There is a trace to mild amount of mitral regurgitation There is no aortic valve stenosis There is no LVOT obstruction. No aortic regurgitation is present. There is no tricuspid stenosis. There is a moderate amount of tricuspid regurgitation There is mild to moderate pulmonary hypertension by echo RVSp is 443 to 48 mm of Hg , with RA mean of 5 to 10. There is no pulmonic valvular stenosis. There is a trace amount of pulmonic regurgitation The aortic root is normal size. The inferior vena cava appeared normal and decreased > 50% with respiration (RAP 5-10 mmHg) No pericardial effusion. There is no obvious cardiac source of embolus noted on this transthoracic echocardiogram. Follow-up with a MARY is suggested if cardiac source is still suspected MMode/2D Measurements & Calculations RVDd: 2.0 cm LVIDd: 4.2 cm FS: 35.0 % Ao root diam: 2.6 cm IVSd: 0.90 cm LVIDs: 2.7 cm EDV(Teich): 76.9 ml Ao root area: 5.2 cm2 LVPWd: 0.88 cm ESV(Teich): 27.1 ml EF(Teich): 64.8 % Doppler Measurements & Calculations MV E max nathalia: MV dec slope: Ao V2 max: LV V1 max P.2 cm/sec 659.1 cm/sec2 162.2 cm/sec 4.4 mmHg MV A max nathalia: MV dec time: Ao max PG: LV V1 mean P.6 cm/sec 0.18 sec 10.5 mmHg 2.5 mmHg MV E/A: 0.97 Ao V2 mean: LV V1 max: 104.5 cm/sec 105.0 cm/sec Ao mean PG: LV V1 mean: 4.9 mmHg 74.0 cm/sec Ao V2 VTI: 35.4 cm LV V1 VTI: 27.6 cm PA V2 max: TR max nathalia: 81.7 cm/sec 299.9 cm/sec PA max P.7 mmHg TR max P.9 mmHg Left Ventricle The left ventricle is normal in size. There is normal left ventricular wall thickness. LV EF is 65%. Left ventricular systolic function is normal. Doppler measurements suggest impaired left ventricular relaxation, which is associated with grade I/IV or mild diastolic dysfunction. The left ventricular wall motion is normal. There is no thrombus. No ASD,VSD,or PFO seen. Right Ventricle The right ventricle is normal in size and function. Atria The right atrium is normal. The left atrial size is normal. Mitral Valve There is no evidence of mitral valve prolapse. There is no vegetation seen on the mitral valve. There is no mitral valve stenosis. There is a trace to mild amount of mitral regurgitation. Aortic Valve There is no aortic valvular vegetation. There is no aortic valve stenosis. There is no LVOT obstruction. No aortic regurgitation is present. Tricuspid Valve There is no tricuspid stenosis. There is a moderate amount of tricuspid regurgitation. There is mild to moderate pulmonary hypertension by echo. RVSp is 443 to 48 mm of Hg , with RA mean of 5 to 10. Pulmonic Valve There is no pulmonic valvular stenosis. There is a trace amount of pulmonic regurgitation. Great Vessels The aortic root is normal size. The inferior vena cava appeared normal and decreased > 50% with respiration (RAP 5-10 mmHg). Effusions No pericardial effusion. : DIXIE HAMILTON Lakshmi
[2020-06-10] MEDS: LEVOTHYROXINE SODIUM 0.075 MG TABLET PO SCH (05:42)
[2020-06-10] MEDS: OXYCODONE-ACETAMINOPHEN 5-325 MG TABLET PO PRN ×2 (08:53→21:53)
[2020-06-10] MEDS: METOPROLOL TARTRATE 25 MG TABLET PO SCH ×2 (11:05→21:54)
[2020-06-10] MEDS: LISINOPRIL 10 MG TABLET PO SCH (11:05)
[2020-06-10] MEDS: DIVALPROEX SODIUM 250 MG TABLET.DR PO SCH ×2 (11:05→21:53)
[2020-06-10] MEDS: ENOXAPARIN SODIUM INJ 40 MG/0.4 ML DISP.SYRIN SUBCUT SCH (11:06)
[2020-06-10] MEDS: BUSPIRONE HCL 10 MG TABLET PO SCH ×2 (11:06→21:53)
--- NOTE | 2020-06-10 18:26 | PDOC PROGRESS REPORT ---
Subjective Date:: 06/10/20 Subjective:: Patient feels better today. Still having some episodes where she loses her spee ch very briefly but much less often today. Reason For Visit: TIA, ACUTE ANXIETY Physical Exam Vital Signs: Temp Pulse Resp BP Pulse Ox 98.2 F 65 15 145/93 H 97 06/10/20 15:55 06/10/20 16:00 06/10/20 16:00 06/10/20 16:00 06/10/20 16:00 Intake & Output 06/09/20 06/10/20 06/11/20 06:59 06:59 06:59 Intake Total 1628 577 Balance 1628 577 Weight 77.6 kg 76 kg General appearance: PRESENT: no acute distress, cooperative Neck exam: ABSENT: JVD Respiratory exam: PRESENT: clear to auscultation roxanne, unlabored Neurological exam: PRESENT: alert, awake, oriented to person, oriented to place, oriented to time, oriented to situation Psychiatric exam: ABSENT: agitated, anxious Results Laboratory Results: 06/09/20 06:15 06/08/20 11:31 06/10/20 06:08 Vitamin B12 < 159.0 L Folate 12.90 Impressions: Brain MRI with MRA 06/08/20 00:00 IMPRESSION: NORMAL MRA OF THE [place] OF CAM. Head MRI 06/08/20 00:00 IMPRESSION: Chronic microvascular ischemia with no acute intracranial imaging finding. EVIDENCE OF ACUTE STROKE: NO. Head CT 06/08/20 10:34 IMPRESSION: No acute intracranial abnormality. EVIDENCE OF ACUTE STROKE: NO. Carotid Doppler Study 06/09/20 00:00 IMPRESSION: Tortuous vessels. No hemodynamically significant stenosis. Assessment and Plan - Diagnosis (1) Acute metabolic encephalopathy Is this a current diagnosis for this admission?: Yes (2) Expressive aphasia Is this a current diagnosis for this admission?: Yes (3) Hypertension Qualifiers: Hypertension type: essential hypertension Qualified Code(s): I10 - Essential (primary) hypertension Is this a current diagnosis for this admission?: Yes (4) Hypothyroid Qualifiers: Hypothyroidism type: unspecified Qualified Code(s): E03.9 - Hypothyroidism, unspecified Is this a current diagnosis for this admission?: Yes (5) Anxiety Is this a current diagnosis for this admission?: Yes - Plan Summary Summary: Patient's neurological deficits involves her blankly staring without being able to formulate any sentences for a few seconds occurring midsentence she a few times a minute. TIA is unlikely as her symptoms are still ongoing. Stroke has been ruled out with negative MRI and normal MRA. We will hold off on further stroke work-up as this is unlikely. Possibly could be a conversion disorder or atypical partial seizure. Discussed with psychiatry who are concerned for neurodegenerative process but will fully evaluate patient today. UTI unlikely to be playing a role here. Hypothyroid unlikely as TSH is normal. Telemetry reviewed and unremarkable We will get an EEG done. Unfortunately technical business systems analyst is not available today but will be able to do it tomorrow. Continue antihypertensive medications. Patient ambulated decently with me. Have tried to contact patient's emergency contact Ankita but this phone number does not belong to her so we are working to get hold of a family member or friend. 06/10/2020 Patient is doing better today. She is continuing on her psych medications. She is ready for discharge pending EEG results. Unfortunately EEG has not resulted today delaying her discharge - Time Time Spent with patient: 15-24 minutes Anticipated Discharge Disposition: Home, Self Care Anticipated Discharge Timeframe: within 24 hours
[2020-06-10] MEDS: ATORVASTATIN CALCIUM 40 MG TABLET PO SCH (21:53)
--- NOTE | 2020-06-10 22:31 | NEURO WORKBENCH EEG REPORT ---
EEG Report Patient: Jossie Rios Shadeed ID: [id number] Referring Doctor: Susanne Reddy DOS: 06/10/2020 Medications: lipitor, buspar, depakote, lovenox, synthroid, lisinopril, lopressor History This is a 75 year old right handed female with a history of hypercholesterolemia, mitral valve prolapse, hypertension, bronchitis, pneumonia, GERD, hiatal hernia, broken shoulder, hypothyroidism, psychiatric problems, depression, anxiety, claustrophobia, marijuana use, migraines, insomnia, gall bladder surgery, breast biopsy, admitted with TIA and acute anxiety with periods of blank staring and aphasia. This EEG was requested for possible seizures. EEG Interpretation This EEG was recorded in the awake state only. The awake EEG is characterized by a fairly well-organized background with a well-developed and reactive posterior dominant rhythm of 10 Hz. The remainder of the background was characterized by a combination of alpha with some beta frequencies. Photic stimulation resulted in no significant changes. There were occasional sharp waves in the left temporal region with rare right temporal sharp waves. There were moderately frequent spikes in the right parasagittal region at times mixed with fairly frequent runs of intermixed spikes and sharp waves with rhythmic theta in the left and right parasagittal regions. These lasted up to several seconds in duration but occurred throughout much of the recording. There was no clear clinical correlation. The EKG showed periods of an irregular rhythm in the 50s. EEG Classification * Electrographic seizures, parasagittal, left and right * Spikes, frontal-central, right * Sharp waves, bilateral independent, temporal, left>right * EKG irregular rhythm, bradycardia EEG Impression This EEG is abnormal. 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 Treatment with further antiepileptics and repeating the EEG to assess for control is recommended. There are also potentially epileptogenic foci in the left and right temporal regions. The EKG may need further investigation. The results of this study were discussed at ~1955h on 06/10/[address] Hamm the hospitalist on duty. INTERPRETING NEUROLOGIST: Jordana Garcia MD, FRCPC Board Certified in Neurology, with special qualification in Child Neurology, and in Clinical Neurophysiology [facility]
[2020-06-11] MEDS ORDERED: CALCIUM CARBONATE 500 MG TAB.CHEW PO ONE ×2 (00:30→03:00)
[2020-06-11] MEDS ORDERED: MELATONIN 5 MG TABLET PO PRN (02:58)
[2020-06-11] MEDS: LEVOTHYROXINE SODIUM 0.075 MG TABLET PO SCH (05:47)
[2020-06-11] MEDS: OXYCODONE-ACETAMINOPHEN 5-325 MG TABLET PO PRN (05:51)
[2020-06-11] MEDS ORDERED: INFLUENZA QUAD (6MOS+) 2020-21 VAC 0.5 ML SYR IM ONE (08:00)
[2020-06-11] MEDS: DIVALPROEX SODIUM 250 MG TABLET.DR PO SCH (09:34)
[2020-06-11] MEDS: METOPROLOL TARTRATE 25 MG TABLET PO SCH ×2 (09:34→21:32)
[2020-06-11] MEDS: BUSPIRONE HCL 10 MG TABLET PO SCH ×2 (09:34→21:32)
[2020-06-11] MEDS: LISINOPRIL 10 MG TABLET PO SCH (09:35)
[2020-06-11] MEDS: ENOXAPARIN SODIUM INJ 40 MG/0.4 ML DISP.SYRIN SUBCUT SCH (09:35)
[2020-06-11] MEDS ORDERED: LORAZEPAM INJ 2 MG/1 ML VIAL IV ONE (13:00)
--- NOTE | 2020-06-11 16:26 | PDOC PROGRESS REPORT ---
Subjective Date:: 06/11/20 Subjective:: Patient still having a language impairment. Notably her EEG came back last night showing epileptiform activity. Reason For Visit: TIA, ACUTE ANXIETY Physical Exam Vital Signs: Temp Pulse Resp BP Pulse Ox 98.1 F 65 16 126/80 H 98 06/11/20 12:28 06/11/20 14:00 06/11/20 12:28 06/11/20 12:28 06/11/20 12:28 Intake & Output 06/10/20 06/11/20 06/12/20 06:59 06:59 06:59 Intake Total 1628 1237 342 Balance 1628 1237 342 Weight 76 kg 76 kg General appearance: PRESENT: no acute distress, cooperative Neck exam: ABSENT: JVD Respiratory exam: PRESENT: clear to auscultation roxanne, symmetrical, unlabored. ABSENT: tachypnea Cardiovascular exam: PRESENT: RRR, +S1, +S2. ABSENT: tachycardia GI/Abdominal exam: PRESENT: soft. ABSENT: rebound, rigid, tenderness Neurological exam: PRESENT: alert, awake, oriented to person, oriented to place, oriented to time, oriented to situation, abnormal gait, aphasic - Mild expressive aphasia. ABSENT: motor sensory deficit Results Laboratory Results: 06/09/20 06:15 06/08/20 11:31 Impressions: Brain MRI with MRA 06/08/20 00:00 IMPRESSION: NORMAL MRA OF THE [place] OF CAM. Head MRI 06/08/20 00:00 IMPRESSION: Chronic microvascular ischemia with no acute intracranial imaging finding. EVIDENCE OF ACUTE STROKE: NO. Head CT 06/08/20 10:34 IMPRESSION: No acute intracranial abnormality. EVIDENCE OF ACUTE STROKE: NO. Carotid Doppler Study 06/09/20 00:00 IMPRESSION: Tortuous vessels. No hemodynamically significant stenosis. Assessment and Plan - Diagnosis (1) Expressive aphasia Is this a current diagnosis for this admission?: Yes (2) Hypertension Qualifiers: Hypertension type: essential hypertension Qualified Code(s): I10 - Essential (primary) hypertension Is this a current diagnosis for this admission?: Yes (3) Cerebral microvascular disease Is this a current diagnosis for this admission?: Yes (4) Neurocognitive deficits Is this a current diagnosis for this admission?: Yes (5) Hypothyroid Qualifiers: Hypothyroidism type: unspecified Qualified Code(s): E03.9 - Hypothyroidism, unspecified Is this a current diagnosis for this admission?: Yes (6) Anxiety Is this a current diagnosis for this admission?: Yes - Plan Summary Summary: Patient's neurological deficits involves her blankly staring without being able to formulate any sentences for a few seconds occurring midsentence she a few times a minute. TIA is unlikely as her symptoms are still ongoing. Stroke has been ruled out with negative MRI and normal MRA. We will hold off on further stroke work-up as this is unlikely. Possibly could be a conversion disorder or atypical partial seizure. Discussed with psychiatry who are concerned for neurodegenerative process but will fully e valuate patient today. UTI unlikely to be playing a role here. Hypothyroid unlikely as TSH is normal. Telemetry reviewed and unremarkable We will get an EEG done. Unfortunately senior technical support engineer is not available today but will be able to do it tomorrow. Continue antihypertensive medications. Patient ambulated decently with me. Have tried to contact patient's emergency contact Ankita but this phone number does not belong to her so we are working to get hold of a family member or friend. 06/10/2020 Patient is doing better today. She is continuing on her psych medications. She is ready for discharge pending EEG results. Unfortunately EEG has not resulted today delaying her discharge 06/11/2020 EEG result came back last night showing areas with epileptiform activity concerning for seizures. Depakote dose was increased last night to 500. Her expressive aphasia is still quite prominent today without improvement despite the Depakote. Gave some Ativan this morning. It is still questionable whether or not aphasia and language impairment is secondary to the seizure noted on EEG and have explained this to patient as well as her emergency contact Ankita. I did a phone consult with Dr. Christopher Robin with [facility] neurolog[facility] who reviewed the MRI images I powershared. On review of the image, he notes that patient has severe chronic microvascular disease in her brain and is actually more suspicious that her language and cognitive impairments are secondary to neurocognitive process such as vascular dementia more so than these findings of epileptiform activity. He recommends to not repeat the EEG and to monitor patient for 24 h to see if any improvement on the Depakote. - Time Time Spent with patient: 25-34 minutes Anticipated Discharge Disposition: Home, Self Care Anticipated Discharge Timeframe: within 24 hours
[2020-06-11] MEDS: ATORVASTATIN CALCIUM 40 MG TABLET PO SCH (21:32)
[2020-06-12] MEDS: LEVOTHYROXINE SODIUM 0.075 MG TABLET PO SCH (05:50)
[2020-06-12] MEDS: LISINOPRIL 10 MG TABLET PO SCH (09:00)
[2020-06-12] MEDS: METOPROLOL TARTRATE 25 MG TABLET PO SCH (09:01)
[2020-06-12] MEDS: BUSPIRONE HCL 10 MG TABLET PO SCH (09:01)
[2020-06-12] MEDS: ENOXAPARIN SODIUM INJ 40 MG/0.4 ML DISP.SYRIN SUBCUT SCH (09:03)
[2020-06-12] MEDS: OXYCODONE-ACETAMINOPHEN 5-325 MG TABLET PO PRN (09:07)
[2020-06-12] MEDS ORDERED: DIVALPROEX SODIUM 250 MG TABLET.DR PO SCH (10:00)
--- NOTE | 2020-06-12 12:58 | PDOC DISCHARGE SUMMARY ---
Impression - Admit/DC Date/PCP Admission Date/Primary Care Provider: 06/11/20 08:00 HELGA AGRAWAL MD Discharge Date: 06/12/20 - Discharge Diagnosis (1) Expressive aphasia Is this a current diagnosis for this admission?: Yes (2) Neurocognitive deficits Is this a current diagnosis for this admission?: Yes (3) Cerebral microvascular disease Is this a current diagnosis for this admission?: Yes (4) Vitamin B12 deficiency Is this a current diagnosis for this admission?: Yes (5) Hypertension Is this a current diagnosis for this admission?: Yes (6) Hypothyroid Is this a current diagnosis for this admission?: Yes (7) Anxiety Is this a current diagnosis for this admission?: Yes - Additional Information Resuscitation Status: Full Code Discharge Diet: Cardiac, Diabetic Discharge Activity: Activity As Tolerated Referrals: [facility], [place] [Other] (Office stated that patient has to make own appointment.) VIOLA DOWNS JR, MD [NO LOCAL MD] - HELGA AGRAWAL MD [Primary Care Provider] - 06/18/20 10:30 am Prescriptions: Buspirone HCl 1 tab PO Q12 #60 tab Divalproex Sodium 250 mg PO Q12 #60 tablet. Aspirin [Ecotrin 81 mg EC Tablet] 81 mg PO DAILY #30 tab Cyanocobalamin (Vitamin B-12) [Vitamin B-12] 2,000 mcg PO DAILY #30 tablet Home Medications: Lansoprazole 30 mg PO Q6AM 07/08/16 Alendronate Sodium 70 mg PO MO@1000 06/08/20 Atorvastatin Calcium [Lipitor 40 mg Tablet] 40 mg PO QHS 06/08/20 Cyclobenzaprine HCl [Flexeril 10 mg Tablet] 5 mg PO DAILYP PRN 06/08/20 Ergocalciferol (Vitamin D2) [Drisdol 50,000 unit (1.25MG) Capsule] 50,000 unit PO MO@1000 06/08/20 Levothyroxine Sodium [Synthroid 0.075 mg Tablet] 0.075 mg PO Q6AM 06/08/20 Lisinopril [Prinivil] 20 mg PO DAILY 06/08/20 Metoprolol Tartrate [Lopressor 25 mg Tablet] 25 mg PO Q12 06/08/20 Oxycodone HCl/Acetaminophen [Percocet 5-325 mg Tablet] 1 tab PO Q6HP PRN 06/08/20 Promethazine HCl [Phenergan 25 mg Tablet] 12.5 mg PO Q6HP PRN 06/08/20 Aspirin [Ecotrin 81 mg EC Tablet] 81 mg PO DAILY #30 tab 06/12/20 Buspirone HCl 1 tab PO Q12 #60 tab 06/12/20 Cyanocobalamin (Vitamin B-12) [Vitamin B-12] 2,000 mcg PO DAILY #30 tablet 06/12/20 Divalproex Sodium 250 mg PO Q12 #60 tablet. 06/12/20 History of Present Illiness History of Present Illness: According to admitting provider: ANNAMARIA BRASHER is a 75 year old female, hypothyroidism, previous stroke, chronic lymphedema, anxiety, frequent fall who came in the ED today due to difficulty speaking. Patient has expressive aphasia and has difficulty speaking and expressing herself therefore history is limited. According to what she told me symptoms started at 1015 this morning when she felt confused and could not speak properly and has trouble word finding. Per ED notes last well-known time was 6 PM yesterday. She also complains of headache which she said is similar to her migraine attacks. She is on Percocet for her migraine attacks which is unusual for. She said she was on Imitrex before but is unable to tell me if she still taking it. She denies any fever, chest pain, shortness of breath, recent illness. She denies any urinary symptoms like dysuria, hematuria. she has no complaints of focal motor weakness. She also admits that she has been having trouble sleeping the past few weeks and also stated that her inability to speak has happened before mostly when she is stressed and anxious. She does not see a migraine doctor. She mentioned that she saw a therapist named Yasmin for her anxiety. She follows with Dr. Agrawal. In the ED blood pressure was 155/79, heart rate 56, respiratory rate 18, O2 sat 100% on room air, afebrile. CBC showed a WBC count of 6.1, hemoglobin of 13.8, platelet count of 128. CMP showed mild hypokalemia 3.4, normal creatinine. CT Of the head was negative. When I spoke to her she did have some difficulty initiating a sentence, then she would be able to talk normally for a few minutes, and then just suddenly stopped talking again. When I asked her questions there would be times when the answer would be not related to what I asked her. But she does not have any slurring of her speech. Cranial nerve exam was unremarkable. Motor exam was unremarkable as well. I have asked psych to evaluate her. MRI of the brain showed chronic microvascular ischemic changes, MRA was negative. I use a stroke order set and I ordered the usual work-up for TIA. Hospital Course Hospital Course: Patient's neurological deficits involves her blankly staring without being able to formulate any sentences for a few seconds occurring midsentence she a few times a minute. TIA is unlikely as her symptoms are still ongoing. Stroke has been ruled out with negative MRI and normal MRA. We will hold off on further stroke work-up as this is unlikely. Possibly could be a conversion disorder or atypical partial seizure. Discussed with psychiatry who are concerned for neurodegenerative process but will fully evaluate patient today. UTI unlikely to be playing a role here. Hypothyroid unlikely as TSH is normal. Telemetry reviewed and unremarkable We will get an EEG done. Unfortunately lab support tech is not available today but will be able to do it tomorrow. Continue antihypertensive medications. Patient ambulated decently with me. Have tried to contact patient's emergency contact Ankita but this phone number does not belong to her so we are working to get hold of a family member or friend. 06/10/2020 Patient is doing better today. She is continuing on her psych medications. She is ready for discharge pending EEG results. Unfortunately EEG has not resulted today delaying her discharge 06/11/2020 EEG result came back last night showing areas with epileptiform activity concerning for seizures. Depakote dose was increased last night to 500. Her expressive aphasia is still quite prominent today without improvement despite the Depakote. Gave some Ativan this morning. It is still questionable whether or not aphasia and language impairment is secondary to the seizure noted on EEG and have explained this to patient as well as her emergency contact Ankita. I did a phone consult with Dr. Viola Downs with [facility] neurology who reviewed the MRI images I powershared. On review of the image, he notes that patient has severe chronic microvascular disease in her brain and is actually more suspicious that her language and cognitive impairments are secondary to neurocognitive process such as vascular dementia more so than these findings of epileptiform activity. He recommends to not repeat the EEG and to monitor patient for 24 h to see if any improvement on the Depakote. 06/12/2020 Patient is doing better today. Aphasia is less. I will be discharging her home with Depakote 250 mg twice a day. As discussed above, the neurologist whom I consulted concerned the patient's symptoms may be due to neurodegenerative process given the high level of SEVERE chronic microvascular disease from old strokes seen on her MRI even though no acute stroke was noted even more so than an actual seizure. She will need to be evaluated for potential early signs of dementia. We will go ahead information for neurologist. However she will also need a vitamin B12 deficiency corrected as this could lead to neurocognitive deficits as well. She will be sent home on high-dose vitamin B12 orally. Patient also be sent home on baby aspirin. She is to continue her atorvastatin. Physical Exam Vital Signs: Temp Pulse Resp BP Pulse Ox 97.6 F 64 16 151/60 H 100 06/12/20 11:46 06/12/20 11:46 06/12/20 11:46 06/12/20 11:46 06/12/20 11:46 Intake & Output 06/11/20 06/12/20 06/13/20 06:59 06:59 06:59 Intake Total 1237 392 Output Total 0 Balance 1237 392 Weight 76 kg 78.7 kg General appearance: PRESENT: no acute distress, cooperative Neck exam: ABSENT: JVD Respiratory exam: PRESENT: unlabored. ABSENT: accessory muscle use Cardiovascular exam: PRESENT: +S1, +S2. ABSENT: tachycardia GI/Abdominal exam: PRESENT: soft. ABSENT: tenderness Neurological exam: PRESENT: alert, awake, oriented to person, oriented to place, oriented to time, aphasic - Occasionally has issues with word finding but seems to wax and wane. Results Laboratory Results: WBC 6.9 10^3/uL (4.0-10.5) 06/09/20 06:15 RBC 3.83 10^6/uL (3.72-5.28) 06/09/20 06:15 Hgb 13.0 g/dL (12.0-15.5) 06/09/20 06:15 Hct 39.3 % (36.0-47.0) 06/09/20 06:15 MCV 103 fl (80-97) H 06/09/20 06:15 MCH 34.0 pg (27.0-33.4) H 06/09/20 06:15 MCHC 33.1 g/dL (32.0-36.0) 06/09/20 06:15 RDW 19.1 % (11.5-14.0) H 06/09/20 06:15 Plt Count 141 10^3/uL (150-450) L 06/09/20 06:15 Lymph % (Auto) 28.1 % (13-45) 06/09/20 06:15 [place] % (Auto) 18.4 % (3-13) H 06/09/20 06:15 Eos % (Auto) 1.9 % (0-6) 06/09/20 06:15 Baso % (Auto) 0.2 % (0-2) 06/09/20 06:15 Absolute Neuts (auto) 3.5 10^3/uL (1.7-8.2) 06/09/20 06:15 Absolute Lymphs (auto) 1.9 10^3/uL (0.5-4.7) 06/09/20 06:15 Absolute Monos (auto) 1.3 10^3/uL (0.1-1.4) 06/09/20 06:15 Absolute Eos (auto) 0.1 10^3/uL (0.0-0.6) 06/09/20 06:15 Absolute Basos (auto) 0.0 10^3/uL (0.0-0.2) 06/09/20 06:15 Seg Neutrophils % 51.4 % (42-78) 06/09/20 06:15 PT 13.0 SEC (11.4-15.4) 06/08/20 11:31 INR 0.96 06/08/20 11:31 APTT Cancelled 06/08/20 11:31 Sodium 141.7 mmol/L (137-145) 06/08/20 11:31 Potassium 3.4 mmol/L (3.6-5.0) L 06/08/20 11:31 Chloride 105 mmol/L (98-107) 06/08/20 11:31 Carbon Dioxide 24 mmol/L (22-30) 06/08/20 11:31 Anion Gap 13 (5-19) 06/08/20 11:31 BUN 10 mg/dL (7-20) 06/08/20 11:31 Creatinine 0.68 mg/dL (0.52-1.25) 06/08/20 11:31 Est GFR ( Amer) > 60 (>60) 06/08/20 11:31 Est GFR (MDRD) Non-Af > 60 (>60) 06/08/20 11:31 Glucose 121 mg/dL (75-110) H 06/08/20 11:31 Hemoglobin A1c % 4.5 % (4.7-6.0) L 06/09/20 06:15 Calcium 9.4 mg/dL (8.4-10.2) 06/08/20 11:31 Total Bilirubin 1.4 mg/dL (0.2-1.3) H 06/08/20 11:31 Direct Bilirubin 0.3 mg/dL (0.0-0.4) 06/08/20 11:31 Neonat Total Bilirubin Not Reportable 06/08/20 11:31 Neonat Direct Bilirubin Not Reportable 06/08/20 11:31 Neonat Indirect Bili Not Reportable 06/08/20 11:31 AST 27 U/L (14-36) 06/08/20 11:31 ALT 16 U/L (<35) 06/08/20 11:31 Alkaline Phosphatase 101 U/L (38-126) 06/08/20 11:31 Total Protein 7.9 g/dL (6.3-8.2) 06/08/20 11:31 Albumin 4.6 g/dL (3.5-5.0) 06/08/20 11:31 Triglycerides 101 mg/dL (<150) 06/09/20 06:15 Cholesterol 162.60 mg/dL (0-200) 06/09/20 06:15 LDL Cholesterol Direct 88 mg/dL (<100) 06/09/20 06:15 VLDL Cholesterol 20.0 mg/dL (10-31) 06/09/20 06:15 HDL Cholesterol 57 mg/dL (>40) 06/09/20 06:15 Vitamin B12 < 159.0 pg/mL (239-931) L 06/10/20 06:08 Folate 12.90 ng/mL (>2.76) 06/10/20 06:08 TSH 3.16 uIU/mL (0.47-4.68) 06/08/20 11:31 Urine Color YELLOW 06/08/20 12:13 Urine Appearance SLIGHTLY-CLOUDY 06/08/20 12:13 Urine pH 7.0 (5.0-9.0) 06/08/20 12:13 Ur Specific [place] 1.004 06/08/20 12:13 Urine Protein NEGATIVE mg/dL (NEGATIVE) 06/08/20 12:13 Urine Glucose (UA) NEGATIVE mg/dL (NEGATIVE) 06/08/20 12:13 Urine Ketones TRACE mg/dL (NEGATIVE) H 06/08/20 12:13 Urine Blood SMALL (NEGATIVE) H 06/08/20 12:13 Urine Nitrite NEGATIVE (NEGATIVE) 06/08/20 12:13 Urine Bilirubin NEGATIVE (NEGATIVE) 06/08/20 12:13 Urine Urobilinogen NEGATIVE mg/dL (<2.0) 06/08/20 12:13 Ur Leukocyte Esterase SMALL (NEGATIVE) H 06/08/20 12:13 Urine WBC (Auto) 4 /HPF 06/08/20 12:13 Urine RBC (Auto) 2 /HPF 06/08/20 12:13 Urine Bacteria (Auto) TRACE /HPF 06/08/20 12:13 Squamous Epi Cells Auto 11 /HPF 06/08/20 12:13 Urine Mucus (Auto) RARE /LPF 06/08/20 12:13 Urine Ascorbic Acid NEGATIVE (NEGATIVE) 06/08/20 12:13 Acetaminophen < 10 ug/mL (10-30) L 06/08/20 11:31 Impressions: Brain MRI with MRA 06/08/20 00:00 IMPRESSION: NORMAL MRA OF [place]. Head MRI 06/08/20 00:00 IMPRESSION: Chronic microvascular ischemia with no acute intracranial imaging finding. EVIDENCE OF ACUTE STROKE: NO. Head CT 06/08/20 10:34 IMPRESSION: No acute intracranial abnormality. EVIDENCE OF ACUTE STROKE: NO. Carotid Doppler Study 06/09/20 00:00 IMPRESSION: Tortuous vessels. No hemodynamically significant stenosis. Plan Time Spent: Greater than 30 Minutes Stroke Is this a Stroke Patient?: Yes Stroke Pt being discharged on Anti-thrombolytic therapy?: Yes Stroke Pt being discharged on Anti-coagulation therapy?: No Reason(s) for not prescribing Anti-coagulation therapy:: Not indicated Stroke Pt being discharged on Statins?: Yes Acute Heart Failure Is this a Heart Failure Patient?: No
[2020-06-12 13:31] VITALS: BP 151/60
== END 2020-06-12 16:15 | disposition home or self-care (01) | DRG 884 ==
LOC: ER 10:17 → EH 13:36 → 3W 16:37 → OBSVTOIN 06-11 08:00
PROVIDERS: ADMIT Internal Medicine; ATTEND Internal Medicine
DX: R41.89 Other symptoms and signs involving cognitive functions and awareness (principal); R47.01 Aphasia; E03.9 Hypothyroidism, unspecified; K21.9 Gastro-esophageal reflux disease without esophagitis; I89.0 Lymphedema, not elsewhere classified; F41.9 Anxiety disorder, unspecified; R29.6 Repeated falls; E78.5 Hyperlipidemia, unspecified; I10 Essential (primary) hypertension; Z79.899 Other long term (current) drug therapy; E53.8 Deficiency of other specified B group vitamins; G43.909 Migraine, unspecified, not intractable, without status migrainosus; Z88.2 Allergy status to sulfonamides; Z88.8 Allergy status to other drugs, medicaments and biological substances; Z86.73 Personal history of transient ischemic attack (TIA), and cerebral infarction without residual deficits; Z79.890 Hormone replacement therapy; Z23 Encounter for immunization
CPT/HCPCS: 36415; 70450; 70544; 70551; 80053; 80061; 80307; 81001; 82607; 82746; 83036; 84443; 85025; 85610; 90471; 90686; 93005; 93010; 93306; 93880; 95819; 99285; G0008; G0378; J1650; J2060; J2405; J3490; J7030